=== PATIENT | female | born 1940 | race Caucasian/White ===

== ENCOUNTER 2018-08-08 22:04 | Inpatient (IN) | payer BC, OTHER ==
[~2018-08-08] VITALS: Ht 152.4 cm; Wt 75.7 kg
[2018-08-08] MEDS ORDERED: ALBUTEROL 0.083% (NEB) 2.5 MG/3 ML AMP HHN STA (23:08)
[2018-08-08] MEDS ORDERED: SOD CHLORIDE 0.9% 500 ML IV STA (23:08)
[2018-08-08] MEDS ORDERED: IPRATROPIUM (NEB) 0.5 MG/2.5 ML AMP INH ONE (23:30)
[2018-08-08] MEDS ORDERED: METHYLPREDNISOLONE 125 MG INJ IV ONE (23:30)
[2018-08-08] MEDS ORDERED: CEFEPIME 2GM/50 ML (PMX) 50 ML IVPB STA (23:45)
[2018-08-08] MEDS ORDERED: SODIUM CHLORIDE 0.9% 1L BAG IV* STA (23:45)
[2018-08-09] VITALS (84 sets, daily range): BP systolic 62–133; BP diastolic 15–71; PULSE 52–88; RESP 13–31; Ht 152.4 cm; Wt 75.7 kg
[2018-08-09] MEDS ORDERED: VANCOMYCIN 1 GM (PMX) 250 ML IVPB ONE
[2018-08-09] MEDS ORDERED: LORAZEPAM 2 MG INJ IV ONE (02:00)
[2018-08-09] MEDS ORDERED: NITROGLYCERIN 2% 1 GM OINT PKT TD ONE (02:00)
--- NOTE | 2018-08-09 02:42 | ERD ---
ER Documentation Chief Complaint Chief Complaint BIB RA 89 FLU LIKE SYMPTOMS, ACCUCK 385 HPI This 77-year-old female brought in by rescue with complaints of cough cold body aches for the past 2-3 days and generalized weakness. Per family she has been weak and lethargic and complaining of fevers and chills. No nausea no vomiting. Patient was seen by facilities maintenance supervisor 4 days ago and cleared with ultrasound per family. Denies any chest pain. Denies any other current issues. ROS All systems reviewed and are negative except as per history of present illness. Allergies Allergies: Coded Allergies: No Known Allergy (Unverified , 08/08/18) PMhx/Soc History of Surgery: Yes (eye surgery) Hx Cardiac Disorders: Yes (hypertension) Hx Miscellaneous Medical Probl: Yes (DM) Hx Alcohol Use: No Hx Substance Use: No Hx Tobacco Use: No Smoking Status: Never smoker Physical Exam Vitals Vital Signs Date Temp Pulse Resp B/P (MAP) Pulse Ox O2 O2 Flow FiO2 Time Delivery Rate 08/09/18 85 157/69 100 Mechanical 13.0 02:34 (98) Ventilator 08/09/18 95 99/82 (88) 100 BIPAP 01:00 08/09/18 101 93 100 00:43 08/08/18 Nasal 4 23:28 Cannula 08/08/18 99 22 89 Nasal 4.0 23:22 Cannula 08/08/18 97.7 100 16 126/66 98 22:11 (86) Physical Exam Const: No acute distress Head: Atraumatic Eyes: Normal Conjunctiva ENT: Normal External Ears, Nose and Mouth. Neck: Full range of motion. No meningismus. Resp: Clear to auscultation bilaterally Cardio: Regular rate and rhythm, no murmurs Abd: Soft, non tender, non distended. Normal bowel sounds Skin: No petechiae or rashes Back: No midline or flank tenderness Ext: No cyanosis, or edema Neur: Awake and alert Psych: Normal Mood and Affect Result Diagram: 08/08/18233708/08/182337 Results 24 hrs Laboratory Tests Test 08/08/18 23:38 08/08/18 23:43 08/09/18 00:05 White Blood Count 22.8 10^3/ul Red Blood Count 5.17 10^6/ul Hemoglobin 11.1 g/dl Hematocrit 35.5 % Mean Corpuscular Volume 68.7 fl Mean Corpuscular 21.5 pg Hemoglobin Mean Corpuscular 31.3 g/dl Hemoglobin Concent Red Cell Distribution 14.8 % Width Platelet Count 352 10^3/UL Mean Platelet Volume 12.1 fl Immature Granulocytes % 0.800 % Neutrophils % 91.0 % Lymphocytes % 4.4 % Monocytes % 3.6 % Eosinophils % 0.0 % Basophils % 0.2 % Nucleated Red Blood Cells 0.0 /100WBC % Immature Granulocytes # 0.180 10^3/ul Neutrophils # 20.7 10^3/ul Lymphocytes # 1.0 10^3/ul Monocytes # 0.8 10^3/ul Eosinophils # 0.0 10^3/ul Basophils # 0.1 10^3/ul Nucleated Red Blood Cells 0.0 10^3/ul # Urine Color YELLOW Urine Clarity CLOUDY Urine pH 5.0 Urine Specific Topmost 1.016 Urine Ketones NEGATIVE mg/dL Urine Nitrite NEGATIVE mg/dL Urine Bilirubin NEGATIVE mg/dL Urine Urobilinogen NEGATIVE mg/dL Urine Leukocyte Esterase 3+ Pita/ul Urine Microscopic RBC 2 /HPF Urine Microscopic WBC > 182 /HPF Urine Squamous MODERATE /HPF Epithelial Cells Urine Bacteria FEW /HPF Urine Mucus FEW /HPF Urine Hemoglobin NEGATIVE mg/dL Urine Glucose 3+ mg/dL Urine Total Protein 1+ mg/dl Sodium Level 136 mmol/L Potassium Level 4.7 mmol/L Chloride Level 98 mmol/L Carbon Dioxide Level 23 mmol/L Anion Gap 15 Blood Urea Nitrogen 41 mg/dl Creatinine 1.23 mg/dl Est Glomerular Filtrat mL/min Rate mL/min Glucose Level 384 mg/dl Calcium Level 9.6 mg/dl Total Bilirubin 0.3 mg/dl Direct Bilirubin 0.00 mg/dl Indirect Bilirubin 0.3 mg/dl Aspartate Amino 51 IU/L Transf (AST/SGOT) Alanine 26 IU/L Aminotransferase (ALT/SGP T) Alkaline Phosphatase 76 IU/L Troponin I 3.970 ng/ml B-Type Natriuretic 957 PG/ML Peptide Total Protein 7.6 g/dl Albumin 4.5 g/dl Globulin 3.10 g/dl Albumin/Globulin Ratio 1.45 POC Venous Lactate 3.9 mmol/L Blood Gas Specimen Source Blood arterial Arterial Blood Date 08/09/2018 12:10:35 AM Drawn Arterial Blood pH 7.430 (Temp corrected) Arterial Blood pCO2 28.6 mmhg (Temp correct) Arterial Blood pO2 51.4 mmHG (Temp corrected) Arterial Blood HCO3 18.6 mmol/L Arterial Blood Base -4.6 mmol/L Excess Arterial Blood 84.9 mmHG Oxygen Saturation Francois Test N/A Arterial Blood Gas LB Puncture Site Arterial 0.3 % Blood Carboxyhemoglobin Arterial Blood 0.2 % Methemoglobin Blood Gas A-a O2 150.5 mmHg Differential Oxyhemoglobin Percent 84.5 % Blood Gas Temperature 37.0 C Blood Gas Modality NASAL CANNULA FiO2 33.0 % Blood Gas Critical Value Naila DEJESUS MD Read Back Blood Gas Notified Whom KM Blood Gas Notified Time 08/09/2018 12:22:18 AM Current Medications Medications Dose Sig/Viki Start Time Status Last (Trade) Ordered Route PRN Stop Time Admin Dose Reason Admin Sodium 500 ml @ Q1H STAT 08/08/18 DC 08/08/18 Chloride 500 mls/hr IV 23:08 23:55 08/09/18 00:07 125 mg ONCE ONCE 08/08/18 DC 08/08/18 Methylprednis IV 23:30 23:55 olone Sodium 08/08/18 23:31 Succinate (Solu-Medrol) Albuterol 5 mg ONCE STAT 08/08/18 DC 08/08/18 (Proventil HHN 23:08 23:22 0.083% (Neb)) 08/08/18 23:11 Ipratropium 0.5 mg ONCE ONCE 08/08/18 DC 08/08/18 [place] INH 23:30 23:22 (Atrovent 08/08/18 23:31 0.02% (Neb)) Sodium 1,570 ml BOLUS OVER 2 08/08/18 DC 08/08/18 Chloride HOURS STAT 23:45 23:55 (NS) IV* 08/08/18 23:46 Cefepime HCl 50 ml @ ONCE STAT 08/08/18 DC 08/08/18 100 mls/hr IVPB 23:45 23:55 08/09/18 00:14 Vancomycin 250 ml @ ONCE ONCE 08/09/18 DC 08/09/18 HCl 125 mls/hr IVPB 00:00 00:29 08/09/18 02:00 Lorazepam 1 mg ONCE ONCE 08/09/18 DC 08/09/18 (Ativan) IV 02:00 01:54 08/09/18 02:01 2 inch ONCE ONCE 08/09/18 DC 08/09/18 Nitroglycerin TD 02:00 01:50 08/09/18 02:01 (Nitroglyceri n 2% Oint) Procedures/MDM Patient's infectious symptoms have not stabilized and the patient is at risk of rapid decompensation. The patient will be admitted for careful hydration, antib iotic therapy, and infectious source control. Severe Sepsis Assessment: Infectious Source: Pneumonia End organ damage indicated by: [Lactate > 2.0 mmol/L Severe Sepsis Managment: Blood Cultures X 2 before broad spectrum antibiotics initiated within 3 hours of recognition. 30 ml/kg NS bolus Completed Initial Lactate: 3.7 Repeat Lactate pending Critical Care: Time: 45 minutes, independent of any separately billable procedural time Treatments/Evaluations: Emergent fluid management, while maintaining close respiratory support. Immediate broad spectrum antibiotic therapy. Simultaneous assessment for possible sources in order to direct therapy. Consideration for invasive and chemical support to prevent respiratory or cardiac collapse. Septic Shock Assessment (1 hour post 30 ml/kg fluid bolus): Hypotension (SBP < 90 or 40 mmHg drop, MAP < 65): [No] Lactic acid > 4.0 [No] Perfusion Reassessment for Septic Shock: Temp 97.8, pulse 89, respiratory rate 22, blood pressure 137/88 Heart Exam: [Tachycardic] Lung Exam: [No Crackles] Capillary Refill: [Delayed] Peripheral Pulses: [Radially present] Skin: [Mottled, pale] Accepting Care Team: Current data and ongoing care discussed. Time: 1 AM Primary Provider: Dr. Aguirre Consulting: Deferred to inpatient team Outstanding Data: none Departure Diagnosis: Primary Impression: Sepsis Sepsis type: sepsis due to unspecified organism Qualified Codes: A41.9 - Sepsis, unspecified organism Condition: Serious LV DEJESUS Aug 09, 2018 02:42
--- NOTE | 2018-08-09 02:44 | EN ---
Date/Time of Note Date/Time of Note DATE: 08/09/18 TIME: 02:42 ER Progress Note During patient's boarding here in the ER, patient became acutely hypoxic was placed on BiPAP. After period of trauma BiPAP, patient became lethargic obtunded and bradycardic. At this point patient underwent respiratory arrest decision to intubate was obviously made. There was questionable loss of pulse at some point so compressions were started. Epinephrine was given. Patient had return of pulse immediately after intubation which was strong and with a normal blood pressure. Dr. Aguirre made aware. Patient upgraded to intensive care unit Endotracheal Intubation by me: Pre assessment performed. See preceding note for details. Pre-oxygenation performed with 100% oxygen RSI: Performed w/o complication or hypoxic events. Medications as ordered. Blade: [Mac 4] ET Tube: 7.5 cm Depth: 22 cm at the lip Intubation confirmed by colorimetric CO2, equal breath sounds, quiet over the stomach. Chest X-ray 1V Interpreted by me: 2 cm above the cher ET tube. Normal soft tissue, No pneumothorax. LV DEJESUS Aug 09, 2018 02:44
[2018-08-09] MEDS ORDERED: SOD CHLORIDE 0.9% 1,000 ML IV ONE (04:00)
[2018-08-09] MEDS ORDERED: ONDANSETRON 4 MG INJ IV PRN (04:00)
[2018-08-09] MEDS ORDERED: VANCOMYCIN IV PER PHARMACY XX SCH (05:00)
--- NOTE | 2018-08-09 05:40 | NUR ---
VANCO PER PHARMACY: Diagnosis SEPSIS Vanco . = 1 gm X 1 IN ER THEN VANCO 750 MG Q24HRS Pharmacy to follow
[2018-08-09] MEDS ORDERED: NA BICARBONATE 8.4% 50 ML SYG IV STA ×3 (05:43→12:41)
[2018-08-09] MEDS ORDERED: PROPOFOL 100 ML ONE (05:55)
[2018-08-09] MEDS ORDERED: PANTOPRAZOLE 40 MG INJ IV SCH (06:00)
[2018-08-09] MEDS ORDERED: PROPOFOL 100 ML IV SCH (06:00)
[2018-08-09] MEDS ORDERED: MEPERIDINE 25 MG INJ IV PRN ×2 (06:30)
[2018-08-09] MEDS ORDERED: ACETAMINOPHEN 650 MG SUPP PR PRN (06:30)
[2018-08-09] MEDS ORDERED: DEXTROSE 50% 50 ML SYRINGE IV PRN ×2 (06:30)
--- NOTE | 2018-08-09 06:30 | QN ---
Documentation Comment I was called out of the ER to room 118 for Central line placement. The patient is requiring Levophed for hypotension. I believe the best option at this time is an easy IO for quick access but can be used for pressor administration for the next 24 hours if needed. However in that time I believe another option such as central line placement or PICC line should be obtained by the primary team. Intraosseous Line Placement by me: Patient consented, area prepped, time out performed. Anesthesia: None used Location: Anteromedial, Proximal Tibia (1-3 cm below Tibial tuberosity) Device: Easy IO blue needle Technique: EZ-IO Drill Results: Bone Marrow Aspirated, No extravasation Complications: No evidence of extravasation, compartment syndrome, growth plate damage, or fat embolism ANTHONY CULVER MD Aug 09, 2018 06:30
[2018-08-09] MEDS ORDERED: EPINEPHrine 0.1 MG/ML SYG ONE (07:00)
[2018-08-09] MEDS ORDERED: SUCCINYLCHOLINE CHLORIDE 100 MG/5 ML SYG IV ONE (07:00)
[2018-08-09] MEDS ORDERED: PHENYLephrine 40 MG in DEXTROSE 5% 246 ML IV SCH ×2 (07:00→07:30)
[2018-08-09] MEDS ORDERED: ETOMIDATE 20 MG INJ ONE (07:00)
[2018-08-09] MEDS ORDERED: VASOPRESSIN 60 UNIT in DEXTROSE 5% 57 ML IV SCH (07:00)
[2018-08-09] MEDS ORDERED: LIDOCAINE 1% (MPF) 5 ML VIAL SC ONE (07:30)
[2018-08-09] MEDS ORDERED: SODIUM BICARBONATE (IV ADD) 100 MEQ in SOD CHLORIDE 0.45% 1,000 ML IV SCH (08:00)
[2018-08-09] MEDS: INSULIN HUMAN REGULAR 100 UNIT in SOD CHLORIDE 0.9% 99 ML IV SCH ×4 (08:40→21:49)
[2018-08-09] MEDS: ACCU-CHEK XX SCH ×15 (08:41→23:30)
[2018-08-09] MEDS ORDERED: CEFEPIME 2GM/50 ML (PMX) 50 ML IVPB SCH (09:00)
--- NOTE | 2018-08-09 09:20 | HP ---
DATE OF ADMISSION: 08/09/2018 CHIEF COMPLAINT: Chest pain associated with nausea, vomiting, diarrhea and headache. HISTORY OF PRESENT ILLNESS: A 77-year-old female with hypertension, type 2 diabetes mellitus, hyperl ipidemia, was brought in by paramedics after she reported multiple complaints. The patient had flu-l delfin symptoms. She stated that she developed nausea, vomiting and diarrhea at home. This was associa edda with chest pain and palpitations. She is complaining of bilateral hand pain. Her condition dete riorated in the emergency room and she required mechanical ventilation. White blood cell count was i nitially elevated to 22,000. There was evidence of a severe metabolic acidosis. The blood sugar was elevated to 591. Troponin has been markedly elevated. Initial troponin was 3.97 with repeat tropon in of 29.3 and 43.5. The patient was placed on pressors and hypothermia protocol was initiated after there was evidence of a cardiac arrest. The patient was resuscitated. According to multiple family members, there is no history of cardiac disease. PAST MEDICAL HISTORY: 1. Hypertension. 2. Type 2 diabetes mellitus. 3. Hyperlipidemia. 4. Peripheral neuropathy. 5. History of chronic kidney disease. SOCIAL HISTORY: The patient lives at home. She was exposed to secondhand smoke until her ex pired in 1999. PHYSICAL EXAMINATION: GENERAL: Well-developed, well-nourished elderly female, who is intubated and paralyzed. VITAL SIGNS: Systolic blood pressure is 93. Pulse is 65. She is afebrile. HEENT: Pupils are slowly reactive to light. CHEST: Lungs clear to auscultation bilaterally. HEART: Regular rate and rhythm. No murmurs or gallops. ABDOMEN: Soft, obese. Normoactive bowel sounds. EXTREMITIES: No clubbing, cyanosis, or edema. LABORATORY DATA: Sodium 142, potassium 5, chloride 106, bicarb 8, BUN 37, creatinine 1.4. Last bloo d sugar was 471. Last WBC 26.2, hemoglobin 9.4, platelet count is 141360, 91% neutrophils. ASSESSMENT AND PLAN: A 77-year-old female with septic shock. Source of infection is unclear at this time, but would need to rule out urosepsis. 1. Acute non-ST elevation myocardial infarction. 2. Acute respiratory failure. 3. Septic versus cardiogenic shock. 4. Severe metabolic acidosis. 5. Poorly controlled type 2 diabetes mellitus. 6. History of chronic kidney disease. 7. Hyperlipidemia. 8. Prognosis is guarded. PLAN: 1. Admit to ICU. Continue ventilatory support. 2. Continue pressor support. 3. Broad spectrum antibiotics. 4. Start 2D echo. 5. Start insulin drip. 6. Blood and urine culture. 7. Pulmonary and cardiology consultation was requested. 8. I will request infectious disease consultation as well. 9. Her condition was discussed with multiple family members at the bedside. I directly spoke to her son and the daughter. Dictated By: JAYE ZHAO MD SK/NTS Conf#: [id number] DID#: [id number] CC: AURELIA FRAUSTO MD; DELICIA OQUENDO MD; ROBYN CAMPOS MD;*End*
[2018-08-09] MEDS: VECURONIUM 100 MG in DEXTROSE 5% 100 ML IV SCH (09:24)
--- NOTE | 2018-08-09 09:29 | NUR ---
PICC LINE NURSING NOTE: Oder for PICC line placed at 0708. I called the ICU at 0740 to inquire about consent. Told by LAZARA Gama consent not signed, will call me back when signed. 0825 I called the ICU to inquire about consent status, told by Valerio HAILE consent is ready. Arrived in ICU approx 0855 for PICC placement. Pt status code blue from 0500 in ED. Right UE veins evaluated per ultrasound & found to be thrombosed per Rachell Mcdonald RN. Left UE evaluated per ultrasound, deep veins too small to accommodate 5 maori PICC at this time. Hospitalist is trying to reach Dr Cruz. I called the ED to speak with Dr Vuong to request central line. He refused & stated " It's 0900 and you should try to reach another doctor". Approx 7-[address] Cruz located in ICU & requested to place central line. Venous access discussed/explained. Dr Cruz agreed to place right internal jugular catheter.
--- NOTE | 2018-08-09 09:55 | QN ---
Documentation Comment Central Line Placement by me: Patient consented, sterilely draped, full prep, gown, glove, mask, time out performed. Anesthesia: None used Location: Right femoral Device: Multiple lumen Technique: Seldinger technique. Secured with suture. Results: Venous return from all ports with easy saline flush. No complic ations. Guide wire retrieved and disposed of. ED ultrasound was used but unfortunately there was no printing available to do cument images. ANTHONY CULVER MD Aug 09, 2018 09:55
[2018-08-09] MEDS ORDERED: PHENYLephrine 20MG IN 250 ML 250 ML ONE (10:23)
[2018-08-09] MEDS ORDERED: PHENYLephrine 20MG IN 250 ML 250 ML IV SCH (10:30)
[2018-08-09] MEDS: VASOPRESSIN 60 UNIT in DEXTROSE 5% 57 ML IV SCH ×2 (11:00→16:05)
--- NOTE | 2018-08-09 11:32 | CONS ---
DATE OF ADMISSION: 08/09/2018 DATE OF CONSULTATION: 08/09/2018 TYPE OF CONSULTATION: Infectious disease. REASON FOR CONSULTATION: Antibiotic management. HISTORY OF PRESENT ILLNESS: Martha Johnson is a 77-year-old female who was brought in by rescue with complaints of cold, cough, body aches for the last 2 or 3 days. She has been weak and lethargic , complaining of fever and chills. No nausea or vomiting. She was seen by her table top tile setter 4 days a go. Her past problems include: 1. Adult-onset diabetes mellitus. 2. Hypertension. 3. Eye surgery. On admission, her white count was 22,800, H and H 11.1 and 35.5, platelet count of 352,000. BUN and creatinine 41/1.23, random glucose 384. HOSPITAL COURSE: The patient became hypoxic. The patient was placed on BiPAP. She became obtunded and bradycardic. She underwent respiratory arrest and she was intubated. There was questionable los s of pulse, so compressions were started and epinephrine was given. Her pulse returned. The patient sent to the intensive care unit. The patient required Levophed for hypotension. Patient had an int raosseous line placement by Dr. Vuong. The patient had evidence of severe metabolic acidosis. Bloo d sugar was 591. Troponin was markedly elevated, initially 3.97. Repeat 29.3 and 43.5. She was lin lexie on pressors and hypothermia protocol after evidence of a cardiac arrest. PAST MEDICAL HISTORY: As outlined. She also has peripheral neuropathy, chronic renal disease. FAMILY HISTORY: Noncontributory. SOCIAL HISTORY: She does not smoke, drink or abuse drugs. ALLERGIES: NONE TO PENICILLIN, SULFA OR FOODS. MEDICATIONS: Per chart. REVIEW OF SYSTEMS: As per HPI. PHYSICAL EXAMINATION: GENERAL: She is a well-developed, well-nourished elderly female who is intubated on a respirator. VITAL SIGNS: Stable. She is afebrile. SKIN: Without generalized rash. HEENT: She is intubated. NECK: Supple. LYMPH NODES: None palpable. CHEST: Decreased breath sounds at the bases. HEART: Without murmur or gallop. ABDOMEN: Soft, obese, nontender, without organosplenomegaly or masses. EXTREMITIES: Without cyanosis, clubbing, or edema. RECTAL AND GENITAL: Deferred. NEUROLOGIC: No focal neurological abnormalities. HOSPITAL COURSE: Her white count last was 26.2, hemoglobin 9.4, platelet count 349,000 with 91% poly s or neutrophils. BUN and creatinine 37/1.4. The patient was started on vancomycin and cefepime. S he is on phenylephrine and vasopressin. Blood cultures were ordered x3. Urine cultures, MRSA screen . Chest x-ray shows perihilar hazy airspace disease most compatible with edema. We will continue he r on current therapy. IMPRESSION AND PLAN: Training for cardiac and septic shock. Await culture reports. I will dictate my findings to Dr. Terry Campos and Dr. Santiago. Dictated By: GRABIEL HOLT MD, JD/NTS Conf#: [id number] DID#: [id number] CC: TERRY CAMPOS MD;*EndCC*
[2018-08-09] MEDS ORDERED: PHENYLephrine 40 MG in DEXTROSE 5% 496 ML IV SCH (12:00)
[2018-08-09] MEDS: NORepinephrine 8MG/250 ML (PMX 250 ML IV SCH ×3 (12:09→20:44)
[2018-08-09] MEDS: PIPER-TAZO 2.25 GM/NS 50 ML IVPB SCH ×3 (12:57→23:46)
[2018-08-09] MEDS ORDERED: SODIUM BICARBONATE (IV ADD) 150 MEQ in SOD CHLORIDE 0.45% 1,000 ML IV SCH (13:00)
--- NOTE | 2018-08-09 13:00 | CONS ---
Assessment/Plan Assessment/Plan Assessment/Plan 1. Acute non-ST elevation myocardial infarction.-- lateral ST depressions, inferior Q waves 2. Acute respiratory failure. 3. Septic versus cardiogenic shock. 4. Severe metabolic acidosis. 5. Poorly controlled type 2 diabetes mellitus. 6. History of chronic kidney disease. 7. Hyperlipidemia. 8. Acute CHF 9. Prognosis is guarded. -continue abx -continue pressor support -will review echocardiogram -lasix once bp better -rx asa, statin - no acei or coreg until bp stable -once stable possible defintive treatment for CAD may be warranted - Consultation Date/Type/Reason Admit Date/Time Aug 09, 2018 at 01:10 Type of Consult Cardiology Date/Time of Note DATE: 08/09/18 TIME: 12:56 Hx of Present Illness A 77-year-old female with hypertension, type 2 diabetes mellitus, hyperlipidemia, was brought in by paramedics after she reported multiple complaints. The patient had flu-like symptoms. She stated that she developed nausea, vomiting and diarrhea at home. This was associated with chest pain and palpitations. She is complaining of bilateral hand pain. Her condition deteriorated in the emergency room and she required mechanical ventilation. White blood cell count was initially elevated to 22,000. There was evidence of a severe metabolic acidosis. The blood sugar was elevated to 591. Troponin has been markedly elevated. Initial troponin was 3.97 with repeat troponin of 29.3 and 43.5. The patient was placed on pressors and hypothermia protocol was initiated after there was evidence of a cardiac arrest. The patient was resuscitated. According to multiple family members, there is no history of cardiac disease.The patient wth no cardiac hsitory but currently homedynamically unstable on pressor support Past Medical History Medications Current Medications Vancomycin HCl (Vanco Iv Per Pharmacy) VANCOMYCIN PER PHARMACY PER PROTOCOL XX ; Start 08/09/18 at 05:00 Ondansetron HCl (Zofran Inj) 4 mg Q4 PRN IV nausea; Start 08/09/18 at 04:00 Pantoprazole (Protonix Iv) 40 mg DAILY@0600 IV Last administered on 08/09/18at 06:06; Admin Dose 40 MG; Start 08/09/18 at 06:00 Vancomycin/Sodium Chloride 250 ml @ 125 mls/hr Q24H IVPB ; Start 08/09/18 at 16:00 Norepinephrine 250 ml @ 1.875 mls/ hr TITRATE IV Last administered on 08/09/18at 12:09; Admin Dose 56.25 MLS/HR; Start 08/09/18 at 06:00 Propofol 100 ml @ 2.1 mls/hr PER PROTOCOL IV ; Start 08/09/18 at 06:30 Vecuronium [place] 100 mg/ Dextrose 100 ml @ 4.2 mls/hr [id number] IV Last administered on 08/09/18at 09:24; Admin Dose 4.2 MLS/HR; Start 08/09/18 at 06:07 Acetaminophen (Tylenol Supp) 650 mg Q4H PRN IA TEMP > 37C; Start 08/09/18 at 06:30 Acetaminophen (Tylenol Liquid) 650 mg Q4H PRN PO TEMP > 37C; Start 08/09/18 at 06:30 Acetaminophen (Tylenol Liquid) 500 mg Q6H PO ; Start 08/10/18 at 06:30; Stop 08/11/18 at 06:29 Meperidine HCl (Demerol) 12.5 mg Q4H PRN IV AGITATION; Start 08/09/18 at 06:30 Meperidine HCl (Demerol) 25 mg Q4H PRN IV MUSCLE SPASMS; Start 08/09/18 at 06:30 Eye Lubricant (Akwa Oint) 1 applic Q6 BOTH EYES ; Start 08/09/18 at 12:00 Eye Lubricant (Artificial Tears Oph) 2 drop Q6 BOTH EYES ; Start 08/09/18 at 12:00 Diagnostic Test (Pha) (Accu-Chek) 1 ea Q1H XX Last administered on 08/09/18at 12:21; Admin Dose 1 EA; Start 08/09/18 at 06:30 Insulin Human Regular 100 unit/ Sodium Chloride 100 ml @ 0 mls/hr PER PROTOCOL IV Last administered on 08/09/18at 08:40; Admin Dose 12 MLS/HR; Start 08/09/18 at 06:30 Miscellaneous Information (* Miscellaneous Pharmacy Order) Treatment of Hypoglycemia: 1.BG 51... Per protocol XX ; Start 08/09/18 at 06:30 Dextrose (D50w Syringe) 25 ml Q15M PRN IV DECREASED GLUCOSE; Start 08/09/18 at 06:30 Dextrose (D50w Syringe) 50 ml Q15M PRN IV DECREASED GLUCOSE; Start 08/09/18 at 06:30 Vasopressin 60 unit/Dextrose 60 ml @ 0 mls/hr Q12H IV ; Start 08/09/18 at 11:00 Phenylephrine HCl 40 mg/Dextrose 500 ml @ 75 mls/hr TITRATE IV Last administered on 08/09/18at 12:09; Admin Dose 150 MLS/HR; Start 08/09/18 at 12:00 Piperacillin Sod/ Tazobactam Sod 50 ml @ 100 mls/hr Q6 IVPB ; Start 08/09/18 at 11:00 Sodium Bicarbonate 150 meq/Sodium Chloride 1,150 ml @ 125 mls/hr Q9H12M IV ; Start 08/09/18 at 13:00 Allergies: Coded Allergies: No Known Allergy (Unverified , 08/08/18) Social History Smoking Status: Never smoker Exam/Review of Systems Vital Signs Vitals Vital Signs Date Temp Pulse Resp B/P (MAP) Pulse Ox O2 O2 Flow FiO2 Time Delivery Rate 08/09/18 53 24 96 100 10:12 08/09/18 62/31 (41) Mechanical 06:45 Ventilator 08/09/18 97.1 05:00 08/09/18 13.0 02:34 Intake and Output 08/08/18 08/08/18 08/09/18 1515:00 23:00 07:00 IntakeIntake Total 2370 ml BalanceBalance 2370 ml Labs Result Diagram: 08/09/18 0423 08/09/18 0423 Results 24hrs Laboratory Tests Test 08/08/18 23:38 08/08/18 23:43 08/09/18 00:05 08/09/18 02:46 White Blood 22.8 H Count Red Blood Count 5.17 Hemoglobin 11.1 L Hematocrit 35.5 L Mean 68.7 L Corpuscular Volume Mean 21.5 L Corpuscular Hemoglobin Mean 31.3 L Corpuscular Hemoglobin Conc ent Red Cell 14.8 H Distribution Width Platelet Count 352 Mean Platelet 12.1 H Volume Immature 0.800 H Granulocytes % Neutrophils % 91.0 H Lymphocytes % 4.4 L Monocytes % 3.6 Eosinophils % 0.0 Basophils % 0.2 Nucleated Red 0.0 Blood Cells % Immature 0.180 H Granulocytes # Neutrophils # 20.7 H Lymphocytes # 1.0 Monocytes # 0.8 Eosinophils # 0.0 Basophils # 0.1 Nucleated Red 0.0 Blood Cells # Urine Color YELLOW Urine Clarity CLOUDY A Urine pH 5.0 Urine Specific 1.016 [place] Urine Ketones NEGATIVE Urine Nitrite NEGATIVE Urine Bilirubin NEGATIVE Urine NEGATIVE Urobilinogen Urine Leukocyte 3+ H Esterase Urine 2 Microscopic RBC Urine > 182 H Microscopic WBC Urine Squamous MODERATE Epithelial Cell s Urine Bacteria FEW A Urine Mucus FEW A Urine NEGATIVE Hemoglobin Urine Glucose 3+ H Urine Total 1+ H Protein Sodium Level 136 Potassium Level 4.7 Chloride Level 98 Carbon Dioxide 23 Level Anion Gap 15 H Blood Urea 41 H Nitrogen Creatinine 1.23 H Est Glomerular Filtrat Rate mL/min Glucose Level 384 H Calcium Level 9.6 Total Bilirubin 0.3 Direct 0.00 Bilirubin Indirect 0.3 Bilirubin Aspartate Amino 51 H Transf (AST/SGO T) Alanine 26 Aminotransferas e (ALT/SGPT) Alkaline 76 Phosphatase Troponin I 3.970 *H B-Type 957 H Natriuretic Peptide Total Protein 7.6 Albumin 4.5 Globulin 3.10 Albumin/Globuli 1.45 n Ratio POC Venous 3.9 *H 7.4 *H Lactate Blood Gas Blood Specimen arterial Source Arterial Blood 08/09/2018 12:1 Date Drawn 0:35 AM Arterial Blood 7.430 pH (Temp corrected ) Arterial Blood 28.6 L pCO2 (Temp correct) Arterial Blood 51.4 *L pO2 (Temp corrected ) Arterial Blood 18.6 L HCO3 Arterial Blood -4.6 L Base Excess Arterial Blood 84.9 L Oxygen Saturati on Francois Test N/A Arterial Blood LB Gas Puncture Site Arterial 0.3 Blood Carboxyhe moglobin Arterial Blood 0.2 Methemoglobin Blood Gas A-a 150.5 H O2 Differential Oxyhemoglobin 84.5 L Percent Blood Gas 37.0 Temperature Blood Gas NASAL CANNULA Modality FiO2 33.0 Blood Gas Naila DEJESUS Critical Value Read Back Blood Gas Notified Whom Blood Gas 08/09/2018 12:2 Notified Time 2:18 AM Test 08/09/18 03:30 08/09/18 03:53 08/09/18 04:23 08/09/18 04:40 Blood Gas Blood arterial Specimen Source Arterial Blood 08/09/2018 3:40: Date Drawn 05 AM Arterial Blood 7.027 *L pH (Temp corrected ) Arterial Blood 33.0 L pCO2 (Temp correct) Arterial Blood 87.4 pO2 (Temp corrected ) Arterial Blood 8.5 *L HCO3 Arterial Blood -21.2 L Base Excess Arterial Blood 91.0 L Oxygen Saturati on Francois Test N/A Arterial Blood LB Gas Puncture Site Arterial 0.3 Blood Carboxyhe moglobin Arterial Blood 0.3 Methemoglobin Blood Gas A-a 592.6 H O2 Differential Oxyhemoglobin 90.5 L Percent Blood Gas 37.0 Temperature Blood Gas 16.0 Respiration Rate Blood Gas 29 Actual Respiration Rat e Blood Gas VENT - AC Modality FiO2 100.0 Blood Gas Tidal 450.0 Volume Blood Gas Low 5.0 PEEP Setting Blood Gas 26.0 Inspiratory Pressure Blood Gas Naila DEJESUS MD Critical Value Read Back Blood Gas Notified Whom Blood Gas 08/09/2018 3:54: Notified Time 03 AM Bedside Glucose 529 *H 503 *H White Blood 26.2 H Count Red Blood Count 4.41 Hemoglobin 9.4 L Hematocrit 32.7 L Mean 74.1 L Corpuscular Volume Mean 21.3 L Corpuscular Hemoglobin Mean 28.7 L Corpuscular Hemoglobin Conc ent Red Cell 15.1 H Distribution Width Platelet Count 349 Mean Platelet 12.3 H Volume Immature 2.700 H Granulocytes % Neutrophils % Segmented 84 H Neutrophils % (Manual) Band 9 H Neutrophils % (Manual) Lymphocytes % Lymphocytes % 5 L (Manual) Monocytes % Monocytes % 1 (Manual) Eosinophils % Basophils % Basophils % 1 (Manual) Nucleated Red 1 H Blood Cells % Immature 0.710 H Granulocytes # Neutrophils # Neutrophils # 22.6 H (Manual) Band 2.3 H Neutrophils # Lymphocytes 1.3 (Manual) Lymphocytes # Monocytes # Monocytes # 0.2 L (Manual) Eosinophils # Basophils # Basophils # 0.2 H (Manual) Nucleated Red Blood Cells # Platelet NORMAL Estimate Giant Platelets 3 H Poikilocytosis 3+ Anisocytosis 2+ Microcytosis 2+ Sodium Level 142 Potassium Level 5.0 Chloride Level 106 Carbon Dioxide 8 #*L Level Anion Gap 28 #H Blood Urea 37 H Nitrogen Creatinine 1.40 H Est Glomerular Filtrat Rate mL/min Glucose Level 591 #*H Lactic Acid 16.1 *H Level Calcium Level 8.2 L Total Bilirubin 0.1 L Direct 0.00 Bilirubin Indirect 0.1 Bilirubin Aspartate Amino 145 H Transf (AST/SGO T) Alanine 58 Aminotransferas e (ALT/SGPT) Alkaline 42 Phosphatase Troponin I 29.300 *H Total Protein 4.8 #L Albumin 2.6 #L Globulin 2.20 Albumin/Globuli 1.18 n Ratio Triglycerides 162 H Level Cholesterol 152 Level LDL 82 Cholesterol, Calculated HDL Cholesterol 38 Cholesterol/HDL 4.0 Ratio Test 08/09/18 06:42 08/09/18 07:00 08/09/18 07:04 08/09/18 07:07 Bedside Glucose 471 *H Blood Gas Blood arterial Specimen Source Arterial Blood 08/09/2018 7:24: Date Drawn 00 AM Arterial Blood 6.985 *L pH (Temp corrected ) Arterial Blood 36.3 pCO2 (Temp correct) Arterial Blood 59.5 L pO2 (Temp corrected ) Arterial Blood 8.7 *L HCO3 Arterial Blood -22.3 L Base Excess Arterial Blood 82.3 L Oxygen Saturati on Francois Test ACCEPTAB Arterial Blood Right Radial Gas Puncture Site Arterial 0.3 Blood Carboxyhe moglobin Arterial Blood 0.4 Methemoglobin Blood Gas A-a 622.2 H O2 Differential Oxyhemoglobin 81.7 L Percent Blood Gas 35.0 Temperature Blood Gas 16.0 Respiration Rate Blood Gas 23 Actual Respiration Rat e Blood Gas VENT - AC Modality FiO2 100.0 Blood Gas Tidal 450.0 Volume Blood Gas Low 10.0 PEEP Setting Blood Gas LAQUITA RN Critical Value Read Back Blood Gas TM Notified Whom Blood Gas 08/09/2018 7:43: Notified Time 00 AM Lipase 77 Lactate 1202 H Dehydrogenase Creatine Kinase 662 H Creatine Kinase 5.6 Index Creatinine 37.00 H Kinase MB (Mass) Troponin I 43.500 *H Test 08/09/18 07:32 08/09/18 08:31 08/09/18 09:43 08/09/18 10:53 D-Dimer > 40701.00 H Bedside Glucose 519 *H 514 *H 346 H Test 08/09/18 12:07 08/09/18 12:16 08/09/18 12:20 Blood Gas Blood arterial Specimen Source Arterial Blood 08/09/2018 11:50 Date Drawn :24 AM Arterial Blood 7.161 *L pH (Temp corrected ) Arterial Blood 21.9 L pCO2 (Temp correct) Arterial Blood 134.5 H pO2 (Temp corrected ) Arterial Blood 8.2 *L HCO3 Arterial Blood -20.0 L Base Excess Arterial Blood 98.4 Oxygen Saturati on Francois Test ACCEPTAB Arterial Blood Left Radial Gas Puncture Site Arterial 0.3 Blood Carboxyhe moglobin Arterial Blood 0.2 Methemoglobin Blood Gas A-a 567.6 H O2 Differential Oxyhemoglobin 97.9 Percent Blood Gas 32.2 Temperature Blood Gas 24.0 Respiration Rate Blood Gas 24 Actual Respiration Rat e Blood Gas VENT - AC Modality FiO2 100.0 Blood Gas Tidal 500.0 Volume Blood Gas Low 12.0 PEEP Setting Blood Gas REBECA HAILE Critical Value Read Back Blood Gas TM Notified Whom Blood Gas 08/09/2018 12:01 Notified Time :53 PM Prothrombin 17.6 H Time Prothrombin 1.4 Time Ratio INR 1.44 International Normalized Rati o Activated 33.2 Partial Thrombo plast Time Bedside Glucose 189 AURELIA FRAUSTO MD Aug 09, 2018 13:00
[2018-08-09] MEDS: OCULAR LUBRICANT 3.5 GM OPH OINT BOTH EYES SCH ×3 (13:25→23:45)
[2018-08-09] MEDS: ARTIFICIAL TEARS 15 ML OPH BOTH EYES SCH ×3 (13:25→23:46)
--- NOTE | 2018-08-09 13:25 | CONS ---
DATE OF ADMISSION: 08/09/2018 DATE OF CONSULTATION: TYPE OF CONSULTATION: Pulmonary. REASON FOR CONSULTATION: Ventilator management, septic shock. HISTORY OF PRESENT ILLNESS: This is an unfortunate 77-year-old lady with a history of hypertension, hyperlipidemia, type 2 diabetes who was brought in from home with flu-like symptoms, shortness of jihan ath, orthopnea, PND, nausea, vomiting, chest pain and palpitations. On arrival, the patient had rapi d deterioration requiring intubation and mechanical ventilation, complicated by cardiopulmonary arres t. She received CPR with return of circulation and now placed on hypothermia protocol. Chest x-ray is demonstrating significant bilateral infiltrates with markedly elevated troponin and WBC. PAST MEDICAL HISTORY: Hypertension, hyperlipidemia, peripheral neuropathy, chronic kidney disease. MEDICATIONS: Per chart. ALLERGIES: NONE. SOCIAL HISTORY: Nonsmoker. No alcohol, no history of drug use. FAMILY HISTORY: Noncontributory. REVIEW OF SYSTEMS: A 12-point review of systems was unable to perform. PHYSICAL EXAMINATION: GENERAL: Moderately obese lady, orally intubated on mechanical ventilation. VITAL SIGNS: Temperature 98, pulse is 65, blood pressure is 84/60, O2 saturation 96%, FiO2 of 80%. NECK: Supple. No JVD or lymphadenopathy. CARDIAC: S1, S2. No added sounds or murmurs. CHEST: Diminished air entry bilaterally with rales. ABDOMEN: Mildly distended. EXTREMITIES: No cyanosis, clubbing. A 1+ edema. NEUROLOGIC: Unable to assess. LABORATORIES: White count 26.2, hemoglobin 9.4, platelets of 349. BUN 37, creatinine 1.4. Lactic a josi 16. Troponin 29. Arterial blood gas: pH 6.9, pCO2 of 36, PaO2 of 59. IMAGING: Chest x-ray is demonstrating 6 bilateral infiltrates. Initial EKG showed no acute ischemic changes per chart. IMPRESSION AND PLAN: 1. Cardiopulmonary arrest, possibly secondary to community-acquired pneumonia and combination with a cute myocardial infarction. 2. Hypoxemic respiratory failure likely secondary to above, possible component of aspiration pneumon ia following cardiopulmonary arrest. 3. History of diabetes mellitus with significant hyperglycemia. 4. 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 5. History of peripheral neuropathy. 6. History of essential hypertension. The patient will require: 1. Continued aggressive volume resuscitation. 2. Vasopressor support. 3. Broad-spectrum antibiotics. We will switch from cefepime to Zosyn for anaerobic coverage. 4. Continue insulin drip. 5. Continue hypothermia protocol with sedation and paralysis. 6. Lee culture pending results. 7. Family discussion at bedside regarding goals of care as prognosis remains poor. Dictated By: DELICIA OQUENDO MD SV/OPAL Conf#: [id number] DID#: [id number] CC: ROBYN CAMPOS MD;*EndCC*
[2018-08-09] MEDS: PANTOPRAZOLE IV 80 MG in SOD CHLORIDE 0.9% 100 ML IV SCH (15:59)
[2018-08-09] MEDS ORDERED: PHENYLEPHRINE 80 MG in DEXTROSE 5% 250 ML IV SCH (16:00)
[2018-08-09] MEDS ORDERED: VANCOMYCIN 750 MG (PMX) 250 ML IVPB SCH (16:00)
[2018-08-09] MEDS ORDERED: INSULIN ASPART [NOVOLOG] 3 ML PEN SC ONE (16:00)
--- NOTE | 2018-08-09 16:32 | RADRPT ---
Echocardiogram Report Patient Name: JIM WESTFALL Gender: Female Date: 1940 Study Date: 09-Aug-2018 Director Sales And Marketing: Peter Mckay [facility] Location: [address] Ref. Physician: ROBYN CAMPOS Quality: Adequate Procedures: Transthoracic echocardiogram with complete 2D, M-Mode, and doppler examination. Indications: S/P Cardiac arrest. 2D/M Mode Doppler Measurement Value Normal Ranges Measurement Value Normal Ranges LVIDd 2D 3.0 3.5 - 5.6 cm GIOVANNI VTI 0.6 cm2 LVIDs 2D 2.4 2.1 - 4.1 cm AV Mean Vijay 1.6 m/sec LVPWd 2D 1.4 0.6 - 1.1 cm AV Mean PG 12.0 mmHg IVSd 2D 1.4 0.6 - 1.1 cm AV VTI 94.1 cm AoR Diam 2D 2.7 2.0 - 3.7 cm LVOT Mean Vijay 0.4 m/sec LA/Ao 2D 1 0 - 1 LVOT Mean PG 1.0 mmHg LA Dimen 2D 3.5 2.3 - 4.0 cm LVOT Peak Vijay 0.6 m/sec LVOT Diam 1.8 cm LVOT Peak PG 1.0 mmHg MV E Peak Vijay 0.9 m/sec MV A Peak Vijay 0.8 m/sec MV E/A 1.1 MV Decel Time 261 msec Lat E` Vijay 0.0 m/sec Lateral E/E` 18.7 Med E` Vijay 0.0 m/sec MV E/A 1.1 TR Peak Vijay 2.9 m/sec TR Peak PG 34.0 mmHg Findings Left Ventricle: Normal left ventricular systolic function. Normal left ventricular cavity size. Moderate concentric left ventricular hypertrophy. Ejection fraction is visually estimated at 55 %. Tissue Doppler/Mitral Doppler indices are consistent with impaired relaxation (Stage I diastolic dysfunction). Right Ventricle: Normal right ventricular size. Normal right ventricular systolic function. Left Atrium: There is mild enlargement of left atrium. Right Atrium: The right atrium is normal in size. Mitral Valve: Mild mitral leaflet calcification. Mild mitral annular calcification. Trace mitral regurgitation. Aortic Valve: Moderate to severe aortic stenosis. Aortic valve Max velocity 2.48 m/sec. Max PG 25.00 mmHg. Mean PG 12.00 mmHg. Aortic valve area 0.64 cm2. Aortic cusps appear moderately calcified. Trace aortic valve regurgitation. Tricuspid Valve: Normal appearance of the tricuspid valve. Estimated peak PA systolic pressure 34 mmHg. There is mild tricuspid regurgitation. Pulmonic Valve: Pulmonic valve not well visualized. There is trace pulmonic regurgitation. Pericardium: Normal pericardium with no significant pericardial effusion. Aorta: Normal aortic root. IVC: The IVC is not well visualized. Conclusions Technically difficult study. Moderate concentric left ventricular hypertrophy with normal systolic function. Grade 1 diastolic dysfunction. Mild left atrial enlargement. Severe calcific aortic stenosis with relatively low gradients. Mild tricuspid regurgitation with mild pulmonary hypertension. Electronically Signed By: Chaya Chen 09-Aug-2018 16:32:17 -0800 Patient Name: JIM WESTFALL Study Date: 09-Aug-2018 [id number]
[2018-08-09] MEDS: POTASSIUM CHLORIDE 50 ML IVPB SCH ×3 (16:55→20:38)
[2018-08-09] MEDS ORDERED: INSULIN GLARGINE [LANTus] (100 UNITS/ML) SYG SC ONE (19:00)
--- NOTE | 2018-08-09 19:00 | NUR ---
END OF SHIFT SUMMARY CARDIAC - MD FRAUSTO ROUNDED ON PT. 2D ECHO WAS PREFORMED ON PT. MD FRAUSTO WAS PAGED AND NOTIFIED OF PT TROPONIN LEVEL. MD HAD NO NEW ORDERS. TO CONTINUE MONITORING PT. POSSIBLE INTERVENTIONS AFTER HYPOTHERMIA PROTOCOL. PULMONARY - MD OQUENDO NOTIFIED ABOUT CRITICAL ABGS THROUGH OUT SHIFT. SEE VENT SETTING CHANGES TO ACCOMMODATE ABGS WELL SODIUM BICARB ORDERED IN BOTH GTT AND PUSHES. MD OQUENDO WAS MADE AWARE OF CURRENT ABX AND DECIDED TO SWITCH CEFEPIME TO ZOSYN. PRIMARY - MD ZHAO WAS ALERTED THROUGH OUT MOST OF THE DAY ABOUT PT ELECTROLYTE LEVELS, BG LEVELS, AND PT CONDITION. MD ZHAO ORDERED EXTRA NOVOLOG SC INJ TO HELP CONTROL BG, EVEN AFTER PT WAS ON ALG 4 OF INSULING GTT MAXED. MD ZHAO WAS ALSO NOTIFIED OF K LEVELS, AND WHEN PT WAS HYPOTENSIVE. ORDERS WERE RECEIVED FOR PRESSORS, AND K WAS REPLACED. MD ZHAO WAS ALSO NOTIFIED OF POOR URINE OUTPUT, STATED HE WOULD CONSULT NEPHRO TOMORROW. MD ZHAO WAS ALSO MADE AWARE THAT PT OGT WAS SUCTIONING UP COFFEE GROUND EMESIS. PROTONIX GTT WAS ORDERED. MD JOE WAS NOTIFIED OF PT BG LEVELS AFTER NOVOLOG WAS GIVEN AND INSULIN AT MAX. MD JOE SAID HE WOULD PASS IT ON TO BATTERY ENGINEER MD ANTONIO. MD ANTONIO DECIDED TO ORDER LANTUS AND POSSIBLE CONSIDERATION OF ENDO CONSULTATION. PHARMNaila GRAY CALLED AND SUGGESTED TO HELP WITH NA LEVEL, BICARB GTT COULD BE MADE WITH STERILE WATER. MD ANTONIO WAS NOTIFIED, AND WANTED THE BICARB GTT TO BE GIVEN IN STERILE WATER, SO THAT SOLN WOULD BE ISOTONIC, PT WAS STARTED ON HYPOTHERMIA WITH NO CENTRAL LINE IN PLACE. WHEN RN ARRIVED ONLY RIGHT COHEN I/O WAS PLACED. MD CULVER PLACED CENTRAL AT APPROXIMATELY 0945. RIGHT COHEN I/O WAS REMOVED AT AROUND 1400. PT IS ON TTM PROTOCOL. PT IS IN MAINTENANCE PHASE. REWARM TO BEGIN AT AROUND 0830. PT IS ON LEVO, VASSO, PAL, PROPOFOL, 3 AMP BICARB, VEC, PROTONIX, AND INSULIN GTT. ALL CRITICAL VALUES REPORTED TO CORRECT MD. ALL SIGNIFICANT EVENTS WERE NOTIFIED TO PACKAGING MATERIALS INSPECTOR AND APPROPRIATE MDS. PT IS STILL IN VERY CRITICAL CONDITION. ALL OF PT NEEDS CARED FOR. ENDORSING CARE TO SNORKELLING INSTRUCTOR RN.
[2018-08-09] MEDS: ATORVASTATIN 20 MG TAB PO SCH (20:39)
[2018-08-09] MEDS: WATER STERILE FOR IV SCH (21:45)
[2018-08-09] MEDS: SODIUM BICARBONATE IV SCH (21:45)
[2018-08-10] VITALS (107 sets, daily range): BP systolic 65–133; BP diastolic 45–77; PULSE 70–150; RESP 14–24
[2018-08-10] MEDS: ACCU-CHEK XX SCH ×24 (00:30→23:04)
[2018-08-10] MEDS: PANTOPRAZOLE IV 80 MG in SOD CHLORIDE 0.9% 100 ML IV SCH ×3 (00:33→20:46)
[2018-08-10] MEDS: INSULIN HUMAN REGULAR 100 UNIT in SOD CHLORIDE 0.9% 99 ML IV SCH ×4 (01:47→10:49)
[2018-08-10] MEDS ORDERED: PHENTOLAMINE 5 MG INJ SC ONE (02:30)
[2018-08-10] MEDS ORDERED: MAGNESIUM SULFATE 2 GM/50 ML 50 ML IVPB ONE (03:00)
[2018-08-10] MEDS: ARTIFICIAL TEARS 15 ML OPH BOTH EYES SCH ×4 (06:06→23:05)
[2018-08-10] MEDS: VECURONIUM 100 MG in DEXTROSE 5% 100 ML IV SCH (06:06)
[2018-08-10] MEDS: OCULAR LUBRICANT 3.5 GM OPH OINT BOTH EYES SCH ×4 (06:06→23:05)
[2018-08-10] MEDS: WATER STERILE FOR IV SCH (06:07)
[2018-08-10] MEDS: SODIUM BICARBONATE IV SCH (06:07)
[2018-08-10] MEDS: PIPER-TAZO 2.25 GM/NS 50 ML IVPB SCH ×4 (06:09→23:46)
[2018-08-10] MEDS: NORepinephrine 8MG/250 ML (PMX 250 ML IV SCH ×2 (06:17→19:56)
[2018-08-10] MEDS: ACETAMINOPHEN 650MG/20.3ML CUP PO SCH ×4 (06:22→23:47)
[2018-08-10] MEDS ORDERED: ACETAMINOPHEN 650 MG SUPP PR SCH (06:30)
--- NOTE | 2018-08-10 06:53 | NUR ---
EOSS PATIENT ABLE TO TAPER OFF VASO AND PAL DRIP. , KEEPING SBP MORE THAN 90 MMHG. ON LEVOPHED DRIP 5 MCG/ MIN, INSULIN GTT DOWN TO 16 UNITS/HOUR, LANTUS 40 UNITS GIVEN X 1, OFF VEC AND PROPOFOL. RASS-5, TOF 0/4. ON PROTONIX DRIP 8MG /HR. OGT ON LOW INTERMITTENT SUCTIONED , NO ACTIVE BLEEDING NOTED. MAGNESIUM 2 GMS GIVEN ORDERED. REGITINE 5 MG GIVEN SC ON THE LEFT HAND, DR. ANTONIO MADE AWARE. LABS DRAWN AWAITING FOR RESULTS WILL ENDORSED ACCORDINGLY.
[2018-08-10] MEDS: PROPOFOL 100 ML IV SCH (07:45)
--- NOTE | 2018-08-10 07:50 | CONS ---
Assessment/Plan Cardiology Heart Failure NYHA Class: IV Heart Failure Timing: Acute Heart Failure Type: Both Assessment/Plan Assessment/Plan 1) NSTEMI 2) At this time preserved LV function 3) Severe 4) VDRF 5) Multiorganfailure 6) KAYLEN 7) Transaminitis 8) Eletrolyte abnormalities 9) s/p resuscitation 10) Anemia 12) Sepsis with septic shock Plan: 1) hypothermia protocol 2) replete K and Mag per protocol 3) No beta glenn or RISHABH due to hypotension and KAYLEN 4) No candidate for invasive strategy at this time 5) Abx 6) pressors as needed attempted to reach family members given poor prognosis Consultation Date/Type/Reason Admit Date/Time Aug 09, 2018 at 01:10 Initial Consult Date Type of Consult Cardiology Date/Time of Note DATE: 08/10/18 TIME: 07:43 24 HR Interval Summary Free Text/Dictation remains in ICU, intubated, ventilated, paralyzed Subjective hx not possible: pt non-verbal, pt critical Exam/Review of Systems Vital Signs Vitals Vital Signs Date Temp Pulse Resp B/P (MAP) Pulse Ox O2 O2 Flow FiO2 Time Delivery Rate 08/10/18 91.7 78 24 109/61 100 07:00 (77) 08/10/18 90 06:06 08/09/18 Mechanical 18:00 Ventilator 08/09/18 13.0 02:34 Intake and Output 08/09/18 08/09/18 08/10/18 1515:00 23:00 07:00 IntakeIntake Total 2450.8 ml 1886.755 ml 1538.625 ml OutputOutput Total 28 ml 204 ml 320 ml BalanceBalance 2422.8 ml 1682.755 ml 1218.625 ml Exam Constitutional: non-verbal Head: normocephalic, atraumatic ENMT: intubated Neck: jvd Respiratory: diminished breath sounds Cardiovascular: regular rate and rhythm Gastrointestinal: soft Musculoskeletal: nl extremities to inspection Extremities: cyanosis Neurological: unresponsive Labs Result Diagram: 08/10/18 0600 08/10/18 0600 Results 24hrs Laboratory Tests Test 08/09/18 08:31 08/09/18 09:43 08/09/18 10:53 08/09/18 12:07 Bedside Glucose 519 *H 514 *H 346 H Blood Gas Blood Specimen arterial Source Arterial Blood 08/09/2018 11:5 Date Drawn 0:24 AM Arterial Blood 7.161 *L pH (Temp corrected ) Arterial Blood 21.9 L pCO2 (Temp correct) Arterial Blood 134.5 H pO2 (Temp corrected ) Arterial Blood 8.2 *L HCO3 Arterial Blood -20.0 L Base Excess Arterial Blood 98.4 Oxygen Saturati on Francois Test ACCEPTAB Arterial Blood Left Radial Gas Puncture Site Arterial 0.3 Blood Carboxyhe moglobin Arterial Blood 0.2 Methemoglobin Blood Gas A-a 567.6 H O2 Differential Oxyhemoglobin 97.9 Percent Blood Gas 32.2 Temperature Blood Gas 24.0 Respiration Rate Blood Gas 24 Actual Respiration Rat e Blood Gas VENT - AC Modality FiO2 100.0 Blood Gas Tidal 500.0 Volume Blood Gas Low 12.0 PEEP Setting Blood Gas REBECA HAILE Critical Value Read Back Blood Gas TM Notified Whom Blood Gas 08/09/2018 12:0 Notified Time 1:53 PM Test 08/09/18 12:16 08/09/18 12:20 08/09/18 13:40 08/09/18 13:45 Prothrombin 17.6 H Time Prothrombin 1.4 Time Ratio INR 1.44 International Normalized Rati o Activated 33.2 Partial Thrombo plast Time Fibrinogen 404.0 Bedside Glucose 189 510 *H Sodium Level 149 H Potassium Level 3.0 #L Chloride Level 107 Carbon Dioxide 16 L Level Anion Gap 26 H Blood Urea 39 H Nitrogen Creatinine 1.61 H Est Glomerular Filtrat Rate mL/min Glucose Level 568 *H Calcium Level 7.7 L Phosphorus 6.3 H Level Magnesium Level 1.9 Total Bilirubin 0.4 Direct 0.20 # Bilirubin Indirect 0.2 Bilirubin Aspartate Amino 656 H Transf (AST/SGO T) Alanine 365 H Aminotransferas e (ALT/SGPT) Alkaline 58 Phosphatase Troponin I 126.000 *H Total Protein 4.9 L Albumin 2.8 L Globulin 2.10 Albumin/Globuli 1.33 n Ratio Amylase Level 147 H Lipase 67 Test 08/09/18 13:49 08/09/18 14:25 08/09/18 15:50 08/09/18 16:46 Bedside Glucose 527 *H 485 *H 488 *H 495 *H Test 08/09/18 17:35 08/09/18 18:07 08/09/18 18:49 1/23/19 19:56 Bedside Glucose 526 *H 501 *H 496 *H White Blood 25.1 H Count Red Blood Count 4.62 Hemoglobin 9.9 L Hematocrit 32.2 L Mean 69.7 L Corpuscular Volume Mean 21.4 L Corpuscular Hemoglobin Mean 30.7 L Corpuscular Hemoglobin Conc ent Red Cell 15.6 H Distribution Width Platelet Count 272 # Mean Platelet 12.6 H Volume Immature 2.300 H Granulocytes % Neutrophils % 87.5 H Segmented 88 H Neutrophils % (Manual) Band 2 Neutrophils % (Manual) Lymphocytes % 7.2 L Lymphocytes % 9 L (Manual) Monocytes % 2.8 Monocytes % 1 (Manual) Eosinophils % 0.0 Basophils % 0.2 Nucleated Red 0.2 H Blood Cells % Immature 0.570 H Granulocytes # Neutrophils # 22.0 H Neutrophils # 22.2 H (Manual) Band 0.5 Neutrophils # Lymphocytes 2.2 (Manual) Lymphocytes # 1.8 Monocytes # 0.7 Monocytes # 0.2 L (Manual) Eosinophils # 0.0 Basophils # 0.1 Nucleated Red 0.0 Blood Cells # Giant Platelets 2 H Platelet @See below Morphology Comment Poikilocytosis 2+ Anisocytosis 2+ Microcytosis 2+ Prothrombin 17.1 H Time Prothrombin 1.3 Time Ratio INR 1.38 International Normalized Rati o Activated 33.2 Partial Thrombo plast Time Fibrinogen 432.0 # Blood Gas Blood arterial Specimen Source Arterial Blood 08/09/2018 6:00: Date Drawn 16 PM Arterial Blood 7.356 pH (Temp corrected ) Arterial Blood 25.2 L pCO2 (Temp correct) Arterial Blood 120.2 H pO2 (Temp corrected ) Arterial Blood 14.4 L HCO3 Arterial Blood -10.7 L Base Excess Arterial Blood 98.2 Oxygen Saturati on Francois Test N/A Arterial Blood LB Gas Puncture Site Arterial 0.2 Blood Carboxyhe moglobin Arterial Blood 0.2 Methemoglobin Blood Gas A-a 576.7 H O2 Differential Oxyhemoglobin 97.8 Percent Blood Gas 33.2 Temperature Blood Gas 24.0 Respiration Rate Blood Gas 24 Actual Respiration Rat e Blood Gas VENT - AC Modality FiO2 100.0 Blood Gas Tidal 500.0 Volume Blood Gas Low 12.0 PEEP Setting Blood Gas [place] Notified Whom Blood Gas 08/09/2018 6:11: Notified Time 29 PM Sodium Level 149 H Potassium Level 3.4 L Chloride Level 104 Carbon Dioxide 18 L Level Anion Gap 27 H Blood Urea 39 H Nitrogen Creatinine 1.75 H Est Glomerular Filtrat Rate mL/min Glucose Level 566 *H Calcium Level 7.5 L Total Bilirubin 0.2 Direct 0.00 # Bilirubin Indirect 0.2 Bilirubin Aspartate Amino 901 H Transf (AST/SGO T) Alanine 539 H Aminotransferas e (ALT/SGPT) Alkaline 58 Phosphatase Total Protein 5.0 L Albumin 2.9 L Test 08/09/18 20:50 08/09/18 21:43 08/09/18 23:30 08/10/18 00:07 Bedside Glucose 485 *H 451 *H 444 *H Blood Gas Blood Specimen arterial Source Arterial Blood 08/09/2018 11:4 Date Drawn 0:57 PM Arterial Blood 7.485 H pH (Temp corrected ) Arterial Blood 27.0 L pCO2 (Temp correct) Arterial Blood 56.8 L pO2 (Temp corrected ) Arterial Blood 20.7 L HCO3 Arterial Blood -2.9 Base Excess Arterial Blood 95.0 Oxygen Saturati on Francois Test ACCEPTAB Arterial Blood Right Radial Gas Puncture Site Arterial 0.3 Blood Carboxyhe moglobin Arterial Blood 0.2 Methemoglobin Blood Gas A-a 565.6 H O2 Differential Oxyhemoglobin 94.5 Percent Blood Gas 33.0 Temperature Blood Gas 24.0 Respiration Rate Blood Gas 24 Actual Respiration Rat e Blood Gas VENT - AC Modality FiO2 90.0 Blood Gas Tidal 500.0 Volume Blood Gas Low 12.0 PEEP Setting Blood Gas [place] Notified Whom Blood Gas 08/09/2018 11:5 Notified Time 4:43 PM Test 08/10/18 00:19 08/10/18 00:24 08/10/18 01:43 08/10/18 02:44 White Blood 21.5 H Count Red Blood Count 4.60 Hemoglobin 9.9 L Hematocrit 31.3 L Mean 68.0 L Corpuscular Volume Mean 21.5 L Corpuscular Hemoglobin Mean 31.6 L Corpuscular Hemoglobin Conc ent Red Cell 15.3 H Distribution Width Platelet Count 268 Mean Platelet 12.3 H Volume Immature 1.400 H Granulocytes % Neutrophils % 89.3 H Lymphocytes % 6.4 L Monocytes % 2.8 Eosinophils % 0.0 Basophils % 0.1 Nucleated Red 0.0 Blood Cells % Immature 0.290 H Granulocytes # Neutrophils # 19.2 H Lymphocytes # 1.4 Monocytes # 0.6 Eosinophils # 0.0 Basophils # 0.0 Nucleated Red 0.0 Blood Cells # Prothrombin 16.6 H Time Prothrombin 1.3 Time Ratio INR 1.33 International Normalized Rati o Activated 29.1 Partial Thrombo plast Time Fibrinogen 407.0 # Sodium Level 148 H Potassium Level 3.2 L Chloride Level 103 Carbon Dioxide 26 Level Anion Gap 19 #H Blood Urea 40 H Nitrogen Creatinine 1.87 H Est Glomerular Filtrat Rate mL/min Glucose Level 432 *H Calcium Level 7.7 L Phosphorus 1.6 L Level Magnesium Level 1.6 L Total Bilirubin 0.2 Direct 0.00 Bilirubin Indirect 0.2 Bilirubin Aspartate Amino 842 H Transf (AST/SGO T) Alanine 536 H Aminotransferas e (ALT/SGPT) Alkaline 51 Phosphatase Troponin I 168.000 *H Total Protein 5.2 L Albumin 2.9 L Globulin 2.30 Albumin/Globuli 1.26 n Ratio Amylase Level 437 #H Lipase 993 H Bedside Glucose 414 *H 376 H 360 H Test 08/10/18 03:58 08/10/18 04:38 08/10/18 05:50 08/10/18 06:00 Bedside Glucose 409 *H 308 H 275 H White Blood 20.4 H Count Red Blood Count 4.53 Hemoglobin 9.8 L Hematocrit 29.9 L Mean 66.0 L Corpuscular Volume Mean 21.6 L Corpuscular Hemoglobin Mean 32.8 Corpuscular Hemoglobin Conc ent Red Cell 15.0 H Distribution Width Platelet Count 234 Mean Platelet 11.9 H Volume Immature 1.500 H Granulocytes % Neutrophils % 89.2 H Lymphocytes % 6.4 L Monocytes % 2.8 Eosinophils % 0.0 Basophils % 0.1 Nucleated Red 0.0 Blood Cells % Immature 0.310 H Granulocytes # Neutrophils # 18.2 H Lymphocytes # 1.3 Monocytes # 0.6 Eosinophils # 0.0 Basophils # 0.0 Nucleated Red 0.0 Blood Cells # Prothrombin 16.3 H Time Prothrombin 1.3 Time Ratio INR 1.30 International Normalized Rati o Activated 30.7 Partial Thrombo plast Time Sodium Level 151 H Potassium Level 2.9 *L Chloride Level 103 Carbon Dioxide 33 H Level Anion Gap 15 H Blood Urea 42 H Nitrogen Creatinine 1.89 H Est Glomerular Filtrat Rate mL/min Glucose Level 254 #H Calcium Level 7.5 L Phosphorus 1.9 L Level Magnesium Level 2.4 Total Bilirubin 0.3 Direct 0.00 Bilirubin Indirect 0.3 Bilirubin Aspartate Amino 661 H Transf (AST/SGO T) Alanine 474 H Aminotransferas e (ALT/SGPT) Alkaline 50 Phosphatase Troponin I Pending Total Protein 5.2 L Albumin 2.8 L Globulin 2.40 Albumin/Globuli 1.16 n Ratio Amylase Level 835 #H Lipase 2551 H Test 08/10/18 06:07 08/10/18 06:44 Blood Gas Blood arterial Specimen Source Arterial Blood 08/10/2018 5:30: Date Drawn 22 AM Arterial Blood 7.613 *H pH (Temp corrected ) Arterial Blood 25.2 L pCO2 (Temp correct) Arterial Blood 116.7 H pO2 (Temp corrected ) Arterial Blood 25.7 HCO3 Arterial Blood 3.7 H Base Excess Arterial Blood 98.5 Oxygen Saturati on Francois Test ACCEPTAB Arterial Blood Right Radial Gas Puncture Site Arterial 0.3 Blood Carboxyhe moglobin Arterial Blood 0.4 Methemoglobin Blood Gas A-a 580.5 H O2 Differential Oxyhemoglobin 97.8 Percent Blood Gas 33.0 Temperature Blood Gas 24.0 Respiration Rate Blood Gas 24 Actual Respiration Rat e Blood Gas VENT - AC Modality FiO2 100.0 Blood Gas Tidal 500.0 Volume Blood Gas Low 12.0 PEEP Setting Blood Gas KEIKO Chung RN Critical Value Read Back Blood Gas [place] Notified Whom Blood Gas 08/10/2018 5:50: Notified Time 34 AM Bedside Glucose 262 H ERICK MAYBERRY MD Aug 10, 2018 07:50
[2018-08-10] MEDS ORDERED: SOD CHLORIDE 0.9% 1,000 ML IV ONE (08:00)
[2018-08-10] MEDS: POTASSIUM CHLORIDE 100 ML IVPB SCH ×2 (08:05→10:19)
--- NOTE | 2018-08-10 08:40 | NUR ---
RE-WARMING PHASE BEGAN 839
[2018-08-10] MEDS: ASPIRIN 81 MG TAB PO SCH (09:00)
--- NOTE | 2018-08-10 09:26 | CONS ---
Assessment/Plan Assessment/Plan Result Diagram: 08/10/18 0600 08/10/18 0600 Results 24hrs Laboratory Tests Test 08/09/18 09:43 08/09/18 10:53 08/09/18 12:07 08/09/18 12:16 Bedside Glucose 514 *H 346 H Blood Gas Blood arterial Specimen Source Arterial Blood 08/09/2018 11:50 Date Drawn :24 AM Arterial Blood 7.161 *L pH (Temp corrected ) Arterial Blood 21.9 L pCO2 (Temp correct) Arterial Blood 134.5 H pO2 (Temp corrected ) Arterial Blood 8.2 *L HCO3 Arterial Blood -20.0 L Base Excess Arterial Blood 98.4 Oxygen Saturati on Francois Test ACCEPTAB Arterial Blood Left Radial Gas Puncture Site Arterial 0.3 Blood Carboxyhe moglobin Arterial Blood 0.2 Methemoglobin Blood Gas A-a 567.6 H O2 Differential Oxyhemoglobin 97.9 Percent Blood Gas 32.2 Temperature Blood Gas 24.0 Respiration Rate Blood Gas 24 Actual Respiration Rat e Blood Gas VENT - AC Modality FiO2 100.0 Blood Gas Tidal 500.0 Volume Blood Gas Low 12.0 PEEP Setting Blood Gas REBECA HAILE Critical Value Read Back Blood Gas TM Notified Whom Blood Gas 08/09/2018 12:01 Notified Time :53 PM Prothrombin 17.6 H Time Prothrombin 1.4 Time Ratio INR 1.44 International Normalized Rati o Activated 33.2 Partial Thrombo plast Time Fibrinogen 404.0 Test 08/09/18 12:20 08/09/18 13:40 08/09/18 13:45 08/09/18 13:49 Bedside Glucose 189 510 *H 527 *H Sodium Level 149 H Potassium Level 3.0 #L Chloride Level 107 Carbon Dioxide 16 L Level Anion Gap 26 H Blood Urea 39 H Nitrogen Creatinine 1.61 H Est Glomerular Filtrat Rate mL/min Glucose Level 568 *H Calcium Level 7.7 L Phosphorus 6.3 H Level Magnesium Level 1.9 Total Bilirubin 0.4 Direct 0.20 # Bilirubin Indirect 0.2 Bilirubin Aspartate Amino 656 H Transf (AST/SGO T) Alanine 365 H Aminotransferas e (ALT/SGPT) Alkaline 58 Phosphatase Troponin I 126.000 *H Total Protein 4.9 L Albumin 2.8 L Globulin 2.10 Albumin/Globuli 1.33 n Ratio Amylase Level 147 H Lipase 67 Test 08/09/18 14:25 08/09/18 15:50 08/09/18 16:46 08/09/18 17:35 Bedside Glucose 485 *H 488 *H 495 *H 526 *H Test 08/09/18 18:07 08/09/18 18:49 08/09/18 19:56 08/09/18 20:50 White Blood 25.1 H Count Red Blood Count 4.62 Hemoglobin 9.9 L Hematocrit 32.2 L Mean 69.7 L Corpuscular Volume Mean 21.4 L Corpuscular Hemoglobin Mean 30.7 L Corpuscular Hemoglobin Conc ent Red Cell 15.6 H Distribution Width Platelet Count 272 # Mean Platelet 12.6 H Volume Immature 2.300 H Granulocytes % Neutrophils % 87.5 H Segmented 88 H Neutrophils % (Manual) Band 2 Neutrophils % (Manual) Lymphocytes % 7.2 L Lymphocytes % 9 L (Manual) Monocytes % 2.8 Monocytes % 1 (Manual) Eosinophils % 0.0 Basophils % 0.2 Nucleated Red 0.2 H Blood Cells % Immature 0.570 H Granulocytes # Neutrophils # 22.0 H Neutrophils # 22.2 H (Manual) Band 0.5 Neutrophils # Lymphocytes 2.2 (Manual) Lymphocytes # 1.8 Monocytes # 0.7 Monocytes # 0.2 L (Manual) Eosinophils # 0.0 Basophils # 0.1 Nucleated Red 0.0 Blood Cells # Giant Platelets 2 H Platelet @See below Morphology Comment Poikilocytosis 2+ Anisocytosis 2+ Microcytosis 2+ Prothrombin 17.1 H Time Prothrombin 1.3 Time Ratio INR 1.38 International Normalized Rati o Activated 33.2 Partial Thrombo plast Time Fibrinogen 432.0 # Blood Gas Blood arterial Specimen Source Arterial Blood 08/09/2018 6:00: Date Drawn 16 PM Arterial Blood 7.356 pH (Temp corrected ) Arterial Blood 25.2 L pCO2 (Temp correct) Arterial Blood 120.2 H pO2 (Temp corrected ) Arterial Blood 14.4 L HCO3 Arterial Blood -10.7 L Base Excess Arterial Blood 98.2 Oxygen Saturati on Francois Test N/A Arterial Blood LB Gas Puncture Site Arterial 0.2 Blood Carboxyhe moglobin Arterial Blood 0.2 Methemoglobin Blood Gas A-a 576.7 H O2 Differential Oxyhemoglobin 97.8 Percent Blood Gas 33.2 Temperature Blood Gas 24.0 Respiration Rate Blood Gas 24 Actual Respiration Rat e Blood Gas VENT - AC Modality FiO2 100.0 Blood Gas Tidal 500.0 Volume Blood Gas Low 12.0 PEEP Setting Blood Gas [place] Notified Whom Blood Gas 08/09/2018 6:11: Notified Time 29 PM Sodium Level 149 H Potassium Level 3.4 L Chloride Level 104 Carbon Dioxide 18 L Level Anion Gap 27 H Blood Urea 39 H Nitrogen Creatinine 1.75 H Est Glomerular Filtrat Rate mL/min Glucose Level 566 *H Calcium Level 7.5 L Total Bilirubin 0.2 Direct 0.00 # Bilirubin Indirect 0.2 Bilirubin Aspartate Amino 901 H Transf (AST/SGO T) Alanine 539 H Aminotransferas e (ALT/SGPT) Alkaline 58 Phosphatase Total Protein 5.0 L Albumin 2.9 L Bedside Glucose 501 *H 496 *H 485 *H Test 08/09/18 21:43 08/09/18 23:30 08/10/18 00:07 08/10/18 00:19 Bedside Glucose 451 *H 444 *H Blood Gas Blood arterial Specimen Source Arterial Blood 08/09/2018 11:40 Date Drawn :57 PM Arterial Blood 7.485 H pH (Temp corrected ) Arterial Blood 27.0 L pCO2 (Temp correct) Arterial Blood 56.8 L pO2 (Temp corrected ) Arterial Blood 20.7 L HCO3 Arterial Blood -2.9 Base Excess Arterial Blood 95.0 Oxygen Saturati on Francois Test ACCEPTAB Arterial Blood Right Radial Gas Puncture Site Arterial 0.3 Blood Carboxyhe moglobin Arterial Blood 0.2 Methemoglobin Blood Gas A-a 565.6 H O2 Differential Oxyhemoglobin 94.5 Percent Blood Gas 33.0 Temperature Blood Gas 24.0 Respiration Rate Blood Gas 24 Actual Respiration Rat e Blood Gas VENT - AC Modality FiO2 90.0 Blood Gas Tidal 500.0 Volume Blood Gas Low 12.0 PEEP Setting Blood Gas [place] Notified Whom Blood Gas 08/09/2018 11:54 Notified Time :43 PM White Blood 21.5 H Count Red Blood Count 4.60 Hemoglobin 9.9 L Hematocrit 31.3 L Mean 68.0 L Corpuscular Volume Mean 21.5 L Corpuscular Hemoglobin Mean 31.6 L Corpuscular Hemoglobin Conc ent Red Cell 15.3 H Distribution Width Platelet Count 268 Mean Platelet 12.3 H Volume Immature 1.400 H Granulocytes % Neutrophils % 89.3 H Lymphocytes % 6.4 L Monocytes % 2.8 Eosinophils % 0.0 Basophils % 0.1 Nucleated Red 0.0 Blood Cells % Immature 0.290 H Granulocytes # Neutrophils # 19.2 H Lymphocytes # 1.4 Monocytes # 0.6 Eosinophils # 0.0 Basophils # 0.0 Nucleated Red 0.0 Blood Cells # Prothrombin 16.6 H Time Prothrombin 1.3 Time Ratio INR 1.33 International Normalized Rati o Activated 29.1 Partial Thrombo plast Time Fibrinogen 407.0 # Sodium Level 148 H Potassium Level 3.2 L Chloride Level 103 Carbon Dioxide 26 Level Anion Gap 19 #H Blood Urea 40 H Nitrogen Creatinine 1.87 H Est Glomerular Filtrat Rate mL/min Glucose Level 432 *H Calcium Level 7.7 L Phosphorus 1.6 L Level Magnesium Level 1.6 L Total Bilirubin 0.2 Direct 0.00 Bilirubin Indirect 0.2 Bilirubin Aspartate Amino 842 H Transf (AST/SGO T) Alanine 536 H Aminotransferas e (ALT/SGPT) Alkaline 51 Phosphatase Troponin I 168.000 *H Total Protein 5.2 L Albumin 2.9 L Globulin 2.30 Albumin/Globuli 1.26 n Ratio Amylase Level 437 #H Lipase 993 H Test 08/10/18 00:24 08/10/18 01:43 08/10/18 02:44 08/10/18 03:58 Bedside Glucose 414 *H 376 H 360 H 409 *H Test 08/10/18 04:38 08/10/18 05:50 08/10/18 06:00 08/10/18 06:07 Bedside Glucose 308 H 275 H White Blood 20.4 H Count Red Blood Count 4.53 Hemoglobin 9.8 L Hematocrit 29.9 L Mean 66.0 L Corpuscular Volume Mean 21.6 L Corpuscular Hemoglobin Mean 32.8 Corpuscular Hemoglobin Conc ent Red Cell 15.0 H Distribution Width Platelet Count 234 Mean Platelet 11.9 H Volume Immature 1.500 H Granulocytes % Neutrophils % 89.2 H Lymphocytes % 6.4 L Monocytes % 2.8 Eosinophils % 0.0 Basophils % 0.1 Nucleated Red 0.0 Blood Cells % Immature 0.310 H Granulocytes # Neutrophils # 18.2 H Lymphocytes # 1.3 Monocytes # 0.6 Eosinophils # 0.0 Basophils # 0.0 Nucleated Red 0.0 Blood Cells # Prothrombin 16.3 H Time Prothrombin 1.3 Time Ratio INR 1.30 International Normalized Rati o Activated 30.7 Partial Thrombo plast Time Fibrinogen 443.0 # Sodium Level 151 H Potassium Level 2.9 *L Chloride Level 103 Carbon Dioxide 33 H Level Anion Gap 15 H Blood Urea 42 H Nitrogen Creatinine 1.89 H Est Glomerular Filtrat Rate mL/min Glucose Level 254 #H Calcium Level 7.5 L Phosphorus 1.9 L Level Magnesium Level 2.4 Total Bilirubin 0.3 Direct 0.00 Bilirubin Indirect 0.3 Bilirubin Aspartate Amino 661 H Transf (AST/SGO T) Alanine 474 H Aminotransferas e (ALT/SGPT) Alkaline 50 Phosphatase Troponin I 156.000 *H Total Protein 5.2 L Albumin 2.8 L Globulin 2.40 Albumin/Globuli 1.16 n Ratio Amylase Level 835 #H Lipase 2551 H Blood Gas Blood Specimen arterial Source Arterial Blood 08/10/2018 5:30 Date Drawn :22 AM Arterial Blood 7.613 *H pH (Temp corrected ) Arterial Blood 25.2 L pCO2 (Temp correct) Arterial Blood 116.7 H pO2 (Temp corrected ) Arterial Blood 25.7 HCO3 Arterial Blood 3.7 H Base Excess Arterial Blood 98.5 Oxygen Saturati on Francois Test ACCEPTAB Arterial Blood Right Radial Gas Puncture Site Arterial 0.3 Blood Carboxyhe moglobin Arterial Blood 0.4 Methemoglobin Blood Gas A-a 580.5 H O2 Differential Oxyhemoglobin 97.8 Percent Blood Gas 33.0 Temperature Blood Gas 24.0 Respiration Rate Blood Gas 24 Actual Respiration Rat e Blood Gas VENT - AC Modality FiO2 100.0 Blood Gas Tidal 500.0 Volume Blood Gas Low 12.0 PEEP Setting Blood Gas KEIKO R Critical Value RN Read Back Blood Gas BL Notified Whom Blood Gas 08/10/2018 5:50 Notified Time :34 AM Test 08/10/18 06:44 08/10/18 08:01 08/10/18 09:02 Bedside Glucose 262 H 251 H 256 H Consultation Date/Type/Reason Admit Date/Time Aug 09, 2018 at 01:10 Initial Consult Date Type of Consult Patient's condition is critical. Currently on rewarming phase of hypothermia protocol. Patient has remained hemodynamically stable. General exam; elderly male, orally intubated, sedated. Currently no distress. Reason for Consultation H HEENT exam; supple neck, positive JVD. No lymphadenopathy. Midline trachea. No thyromegaly. Patient is edentulous. Pupils are small bilaterally. Chest exam; diminished breath sounds bilaterally. S1-S2 audible, no murmurs. Regular rhythm. Abdomen exam; soft, bowel sounds are sluggish. No organomegaly. Abdomen is mildly protuberant. Extremity exam; no peripheral edema. [employer] exam; patient is sedated. Exam/Review of Systems Vital Signs Vitals Vital Signs Date Temp Pulse Resp B/P (MAP) Pulse Ox O2 O2 Flow FiO2 Time Delivery Rate 08/10/18 85 09:00 08/10/18 91.3 80 18 110/63 100 09:00 (79) 08/09/18 Mechanical 18:00 Ventilator 08/09/18 13.0 02:34 Intake and Output 08/09/18 08/09/18 08/10/18 1515:00 23:00 07:00 IntakeIntake Total 2450.8 ml 1886.755 ml 1538.625 ml OutputOutput Total 28 ml 204 ml 374 ml BalanceBalance 2422.8 ml 1682.755 ml 1164.625 ml Exam Chest x-ray was reviewed from today which is showing pulmonary edema with possibly bilateral pneumonia. Ventilator setting; AC of 24, tidal volume 500, PEEP of 12, 90% FiO2. Patient is currently on propofol at 5 mics per kilogram per minute. Off Levophed. Assessment recommendations; next 1. Patient admitted with sepsis from pneumonia with acute AL with significant elevation in troponins. 2. UTI with likely urosepsis. 3. Likely acute on chronic renal insufficiency. 4. Status post CPR with cardiac arrest in ER requiring intubation, patient currently getting off hypothermia protocol. 5. Difficult to rule out any anoxic brain injury. 6. Pulmonary edema. 7. History of diabetes and hypertension. 8. Interval correction of metabolic acidosis. Patient currently being hyperventilated. 9. Severe hypoxemia. Obtain ABG. Decrease assist control rate to 16. Continue current supportive care. Further recommendations per realtime court reporter. Will monitor renal function. Obtain follow-up chest x-ray 24 hours. Further recommendations once ABG is perf ormed. Meanwhile discontinue sodium bicarbonate drip. Mental status to be assessed once patient is off hypothermia protocol. 40 minutes of critical care time was spent evaluating the patient. Medications Medications Current Medications Vancomycin HCl (Vanco Iv Per Pharmacy) VANCOMYCIN PER PHARMACY PER PROTOCOL XX ; Start 08/09/18 at 05:00 Ondansetron HCl (Zofran Inj) 4 mg Q4 PRN IV nausea; Start 08/09/18 at 04:00 Pantoprazole (Protonix Iv) 40 mg DAILY@0600 IV Last administered on 08/09/18at 06:06; Admin Dose 40 MG; Start 08/09/18 at 06:00; Status Hold Vancomycin/Sodium Chloride 250 ml @ 125 mls/hr Q24H IVPB Last administered on 08/09/18at 16:31; Admin Dose 125 MLS/HR; Start 08/09/18 at 16:00 Norepinephrine 250 ml @ 1.875 mls/ hr TITRATE IV Last administered on 08/10/18at 06:17; Admin Dose 9.375 MLS/HR; Start 08/09/18 at 06:00 Propofol 100 ml @ 2.1 mls/hr PER PROTOCOL IV Last administered on 08/10/18at 07:45; Admin Dose 2.1 MLS/HR; Start 08/09/18 at 06:30 Vecuronium [place] 100 mg/ Dextrose 100 ml @ 4.2 mls/hr [id number] IV Last administered on 08/10/18at 06:06; Admin Dose 0 MLS/HR; Start 08/09/18 at 06:07 Acetaminophen (Tylenol Supp) 650 mg Q4H PRN [place] TEMP > 37C; Start 08/09/18 at 06:30 Acetaminophen (Tylenol Liquid) 650 mg Q4H PRN PO TEMP > 37C; Start 08/09/18 at 06:30 Acetaminophen (Tylenol Liquid) 500 mg Q6H PO Last administered on 08/10/18at 06:22; Admin Dose 500 MG; Start 08/10/18 at 06:30; Stop 08/11/18 at 06:29 Meperidine HCl (Demerol) 12.5 mg Q4H PRN IV AGITATION; Start 08/09/18 at 06:30 Meperidine HCl (Demerol) 25 mg Q4H PRN IV MUSCLE SPASMS; Start 08/09/18 at 06:30 Eye Lubricant (Akwa Oint) 1 applic Q6 BOTH EYES Last administered on 08/10/18at 06:06; Admin Dose 1 APPLIC; Start 08/09/18 at 12:00 Eye Lubricant (Artificial Tears Oph) 2 drop Q6 BOTH EYES Last administered on 08/10/18at 06:06; Admin Dose 2 DROP; Start 08/09/18 at 12:00 Diagnostic Test (Pha) (Accu-Chek) 1 ea Q1H XX Last administered on 08/10/18at 08:59; Admin Dose 1 EA; Start 08/09/18 at 06:30 Insulin Human Regular 100 unit/ Sodium Chloride 100 ml @ 0 mls/hr PER PROTOCOL IV Last administered on 08/10/18at 05:14; Admin Dose 28 MLS/HR; Start 08/09/18 at 06:30 Miscellaneous Information (* Miscellaneous Pharmacy Order) Treatment of Hypoglycemia: 1.BG 51... Per protocol XX ; Start 08/09/18 at 06:30 Dextrose (D50w Syringe) 25 ml Q15M PRN IV DECREASED GLUCOSE; Start 08/09/18 at 06:30 Dextrose (D50w Syringe) 50 ml Q15M PRN IV DECREASED GLUCOSE; Start 08/09/18 at 06:30 Vasopressin 60 unit/Dextrose 60 ml @ 0 mls/hr Q12H IV Last administered on 08/09/18at 16:05; Admin Dose 2.4 MLS/HR; Start 08/09/18 at 11:00 Piperacillin Sod/ Tazobactam Sod 50 ml @ 100 mls/hr Q6 IVPB Last administered on 08/10/18at 06:09; Admin Dose 100 MLS/HR; Start 08/09/18 at 11:00 Aspirin (Aspirin) 81 mg DAILY PO ; Start 08/10/18 at 09:00 Atorvastatin Calcium (Lipitor) 20 mg HS PO Last administered on 08/09/18at 20:39; Admin Dose 20 MG; Start 08/09/18 at 21:00 Pantoprazole 80 mg/Sodium Chloride 100 ml @ 10 mls/hr Q10H IV Last administered on 08/10/18at 00:33; Admin Dose 10 MLS/HR; Start 08/09/18 at 16:00 Phenylephrine HCl 80 mg/Dextrose 250 ml @ 18.75 mls/ hr TITRATE IV Last administered on 08/09/18at 16:08; Admin Dose 37.5 MLS/HR; Start 08/09/18 at 16:00 Potassium Chloride 100 ml @ 50 mls/hr Q2H IVPB Last administered on 08/10/18at 08:05; Admin Dose 50 MLS/HR; Start 08/10/18 at 08:00; Stop 08/10/18 at 11:59 Date/Time of Note Date/Time of Note DATE: 08/10/18 TIME: 09:21 WENDY STEVENSON Aug 10, 2018 09:26
[2018-08-10] MEDS ORDERED: ONDANSETRON 4 MG INJ IV PRN (09:30)
--- NOTE | 2018-08-10 10:55 | PN ---
DATE: 08/09/2018 SUBJECTIVE: Patient remains intubated and unresponsive. PHYSICAL EXAMINATION: VITAL SIGNS: Blood pressure 110/63, pulse 80, temperature low at 91.3, pulse oximetry is 100%. LUNGS: Mild rhonchi bilaterally. HEART: Regular rate and rhythm. ABDOMEN: Soft, normoactive bowel sounds. EXTREMITIES: No clubbing, cyanosis, or edema. LABORATORY DATA: White blood cell count is 20.4, hemoglobin is 9.8, platelet count is 234,000. [place] um 151, potassium 2.9, chloride 103, BUN 42, creatinine 1.89, glucose is 256. ASSESSMENT AND PLAN: 1. A 77-year-old female status post cardiac arrest. 2. Acute non-ST elevation myocardial infarction. 3. Acute respiratory failure. 4. Septic shock. Blood and urine cultures are negative so far. 5. Hypernatremia. 6. Hypokalemia. 7. Acute kidney injury. 8. Type 2 diabetes mellitus. 9. Prognosis is guarded. PLAN: 1. Continue supportive care. 2. Check pending culture results. 3. Potassium supplementation. 4. Pulmonary, cardiology, and infectious disease followup. Dictated By: JAYE MENESES/OPAL Conf#: [id number] DID#: [id number]
[2018-08-10] MEDS: VASOPRESSIN 60 UNIT in DEXTROSE 5% 57 ML IV SCH ×2 (11:00→22:58)
--- NOTE | 2018-08-10 11:17 | CONS ---
Date/Time of Note Date/Time of Note DATE: 08/10/18 TIME: 11:16 Assessment/Plan Assessment/Plan Assessment/Plan 1.. Non Oliguric Acute kidney injury due to ATN 2. acute hypoxemic respiratory failure intubated on ventilator 3. severe sepsis due to possible aspiration PNA 4. S/p Cardiac Arrest - currently on hypothermia protocol 5. Encephalopathy r/o anoxic damage from cardiac arrest 6. H/o HTN 7. H/o DM II 8. h/o HL Plan: Seen in ICU, BUN/Cr slightly went up, making urine output 30-40 cc/hr, IV abx for Severe sepsis, Renally dose all abx and Monitor electrolytes Cardiology following, Plan for rewarming phase today Renal US to assees for CKD and to rule out hydronephrosis K and magnesium replacement Thanks for consultatoin, I will continue to maria de jesus sanchez Result Diagram: 08/10/18 0600 08/10/18 0600 Results 24hrs Laboratory Tests Test 08/09/18 12:07 08/09/18 12:16 08/09/18 12:20 08/09/18 13:40 Blood Gas Blood arterial Specimen Source Arterial Blood 08/09/2018 11:50 Date Drawn :24 AM Arterial Blood 7.161 *L pH (Temp corrected ) Arterial Blood 21.9 L pCO2 (Temp correct) Arterial Blood 134.5 H pO2 (Temp corrected ) Arterial Blood 8.2 *L HCO3 Arterial Blood -20.0 L Base Excess Arterial Blood 98.4 Oxygen Saturati on Francois Test ACCEPTAB Arterial Blood Left Radial Gas Puncture Site Arterial 0.3 Blood Carboxyhe moglobin Arterial Blood 0.2 Methemoglobin Blood Gas A-a 567.6 H O2 Differential Oxyhemoglobin 97.9 Percent Blood Gas 32.2 Temperature Blood Gas 24.0 Respiration Rate Blood Gas 24 Actual Respiration Rat e Blood Gas VENT - AC Modality FiO2 100.0 Blood Gas Tidal 500.0 Volume Blood Gas Low 12.0 PEEP Setting Blood Gas REBECA HAILE Critical Value Read Back Blood Gas TM Notified Whom Blood Gas 08/09/2018 12:01 Notified Time :53 PM Prothrombin 17.6 H Time Prothrombin 1.4 Time Ratio INR 1.44 International Normalized Rati o Activated 33.2 Partial Thrombo plast Time Fibrinogen 404.0 Bedside Glucose 189 Sodium Level 149 H Potassium Level 3.0 #L Chloride Level 107 Carbon Dioxide 16 L Level Anion Gap 26 H Blood Urea 39 H Nitrogen Creatinine 1.61 H Est Glomerular Filtrat Rate mL/min Glucose Level 568 *H Calcium Level 7.7 L Phosphorus 6.3 H Level Magnesium Level 1.9 Total Bilirubin 0.4 Direct 0.20 # Bilirubin Indirect 0.2 Bilirubin Aspartate Amino 656 H Transf (AST/SGO T) Alanine 365 H Aminotransferas e (ALT/SGPT) Alkaline 58 Phosphatase Troponin I 126.000 *H Total Protein 4.9 L Albumin 2.8 L Globulin 2.10 Albumin/Globuli 1.33 n Ratio Amylase Level 147 H Lipase 67 Test 08/09/18 13:45 08/09/18 13:49 08/09/18 14:25 08/09/18 15:50 Bedside Glucose 510 *H 527 *H 485 *H 488 *H Test 08/09/18 16:46 08/09/18 17:35 08/09/18 18:07 08/09/18 18:49 Bedside Glucose 495 *H 526 *H 501 *H White Blood 25.1 H Count Red Blood Count 4.62 Hemoglobin 9.9 L Hematocrit 32.2 L Mean 69.7 L Corpuscular Volume Mean 21.4 L Corpuscular Hemoglobin Mean 30.7 L Corpuscular Hemoglobin Conc ent Red Cell 15.6 H Distribution Width Platelet Count 272 # Mean Platelet 12.6 H Volume Immature 2.300 H Granulocytes % Neutrophils % 87.5 H Segmented 88 H Neutrophils % (Manual) Band 2 Neutrophils % (Manual) Lymphocytes % 7.2 L Lymphocytes % 9 L (Manual) Monocytes % 2.8 Monocytes % 1 (Manual) Eosinophils % 0.0 Basophils % 0.2 Nucleated Red 0.2 H Blood Cells % Immature 0.570 H Granulocytes # Neutrophils # 22.0 H Neutrophils # 22.2 H (Manual) Band 0.5 Neutrophils # Lymphocytes 2.2 (Manual) Lymphocytes # 1.8 Monocytes # 0.7 Monocytes # 0.2 L (Manual) Eosinophils # 0.0 Basophils # 0.1 Nucleated Red 0.0 Blood Cells # Giant Platelets 2 H Platelet @See below Morphology Comment Poikilocytosis 2+ Anisocytosis 2+ Microcytosis 2+ Prothrombin 17.1 H Time Prothrombin 1.3 Time Ratio INR 1.38 International Normalized Rati o Activated 33.2 Partial Thrombo plast Time Fibrinogen 432.0 # Blood Gas Blood Specimen arterial Source Arterial Blood 08/09/2018 6:00 Date Drawn :16 PM Arterial Blood 7.356 pH (Temp corrected ) Arterial Blood 25.2 L pCO2 (Temp correct) Arterial Blood 120.2 H pO2 (Temp corrected ) Arterial Blood 14.4 L HCO3 Arterial Blood -10.7 L Base Excess Arterial Blood 98.2 Oxygen Saturati on Francois Test N/A Arterial Blood LB Gas Puncture Site Arterial 0.2 Blood Carboxyhe moglobin Arterial Blood 0.2 Methemoglobin Blood Gas A-a 576.7 H O2 Differential Oxyhemoglobin 97.8 Percent Blood Gas 33.2 Temperature Blood Gas 24.0 Respiration Rate Blood Gas 24 Actual Respiration Rat e Blood Gas VENT - AC Modality FiO2 100.0 Blood Gas Tidal 500.0 Volume Blood Gas Low 12.0 PEEP Setting Blood Gas [place] Notified Whom Blood Gas 08/09/2018 6:11 Notified Time :29 PM Sodium Level 149 H Potassium Level 3.4 L Chloride Level 104 Carbon Dioxide 18 L Level Anion Gap 27 H Blood Urea 39 H Nitrogen Creatinine 1.75 H Est Glomerular Filtrat Rate mL/min Glucose Level 566 *H Calcium Level 7.5 L Total Bilirubin 0.2 Direct 0.00 # Bilirubin Indirect 0.2 Bilirubin Aspartate Amino 901 H Transf (AST/SGO T) Alanine 539 H Aminotransferas e (ALT/SGPT) Alkaline 58 Phosphatase Total Protein 5.0 L Albumin 2.9 L Test 08/09/18 19:56 08/09/18 20:50 08/09/18 21:43 08/09/18 23:30 Bedside Glucose 496 *H 485 *H 451 *H 444 *H Test 08/10/18 00:07 08/10/18 00:19 08/10/18 00:24 08/10/18 01:43 Blood Gas Blood arterial Specimen Source Arterial Blood 08/09/2018 11:40 Date Drawn :57 PM Arterial Blood 7.485 H pH (Temp corrected ) Arterial Blood 27.0 L pCO2 (Temp correct) Arterial Blood 56.8 L pO2 (Temp corrected ) Arterial Blood 20.7 L HCO3 Arterial Blood -2.9 Base Excess Arterial Blood 95.0 Oxygen Saturati on Francois Test ACCEPTAB Arterial Blood Right Radial Gas Puncture Site Arterial 0.3 Blood Carboxyhe moglobin Arterial Blood 0.2 Methemoglobin Blood Gas A-a 565.6 H O2 Differential Oxyhemoglobin 94.5 Percent Blood Gas 33.0 Temperature Blood Gas 24.0 Respiration Rate Blood Gas 24 Actual Respiration Rat e Blood Gas VENT - AC Modality FiO2 90.0 Blood Gas Tidal 500.0 Volume Blood Gas Low 12.0 PEEP Setting Blood Gas JAZZY Notified Whom Blood Gas 08/09/2018 11:54 Notified Time :43 PM White Blood 21.5 H Count Red Blood Count 4.60 Hemoglobin 9.9 L Hematocrit 31.3 L Mean 68.0 L Corpuscular Volume Mean 21.5 L Corpuscular Hemoglobin Mean 31.6 L Corpuscular Hemoglobin Conc ent Red Cell 15.3 H Distribution Width Platelet Count 268 Mean Platelet 12.3 H Volume Immature 1.400 H Granulocytes % Neutrophils % 89.3 H Lymphocytes % 6.4 L Monocytes % 2.8 Eosinophils % 0.0 Basophils % 0.1 Nucleated Red 0.0 Blood Cells % Immature 0.290 H Granulocytes # Neutrophils # 19.2 H Lymphocytes # 1.4 Monocytes # 0.6 Eosinophils # 0.0 Basophils # 0.0 Nucleated Red 0.0 Blood Cells # Prothrombin 16.6 H Time Prothrombin 1.3 Time Ratio INR 1.33 International Normalized Rati o Activated 29.1 Partial Thrombo plast Time Fibrinogen 407.0 # Sodium Level 148 H Potassium Level 3.2 L Chloride Level 103 Carbon Dioxide 26 Level Anion Gap 19 #H Blood Urea 40 H Nitrogen Creatinine 1.87 H Est Glomerular Filtrat Rate mL/min Glucose Level 432 *H Calcium Level 7.7 L Phosphorus 1.6 L Level Magnesium Level 1.6 L Total Bilirubin 0.2 Direct 0.00 Bilirubin Indirect 0.2 Bilirubin Aspartate Amino 842 H Transf (AST/SGO T) Alanine 536 H Aminotransferas e (ALT/SGPT) Alkaline 51 Phosphatase Troponin I 168.000 *H Total Protein 5.2 L Albumin 2.9 L Globulin 2.30 Albumin/Globuli 1.26 n Ratio Amylase Level 437 #H Lipase 993 H Bedside Glucose 414 *H 376 H Test 08/10/18 02:44 08/10/18 03:58 08/10/18 04:38 08/10/18 05:50 Bedside Glucose 360 H 409 *H 308 H 275 H Test 08/10/18 06:00 08/10/18 06:07 1/24/19 06:44 08/10/18 08:01 White Blood 20.4 H Count Red Blood Count 4.53 Hemoglobin 9.8 L Hematocrit 29.9 L Mean 66.0 L Corpuscular Volume Mean 21.6 L Corpuscular Hemoglobin Mean 32.8 Corpuscular Hemoglobin Conc ent Red Cell 15.0 H Distribution Width Platelet Count 234 Mean Platelet 11.9 H Volume Immature 1.500 H Granulocytes % Neutrophils % 89.2 H Lymphocytes % 6.4 L Monocytes % 2.8 Eosinophils % 0.0 Basophils % 0.1 Nucleated Red 0.0 Blood Cells % Immature 0.310 H Granulocytes # Neutrophils # 18.2 H Lymphocytes # 1.3 Monocytes # 0.6 Eosinophils # 0.0 Basophils # 0.0 Nucleated Red 0.0 Blood Cells # Prothrombin 16.3 H Time Prothrombin 1.3 Time Ratio INR 1.30 International Normalized Rati o Activated 30.7 Partial Thrombo plast Time Fibrinogen 443.0 # Sodium Level 151 H Potassium Level 2.9 *L Chloride Level 103 Carbon Dioxide 33 H Level Anion Gap 15 H Blood Urea 42 H Nitrogen Creatinine 1.89 H Est Glomerular Filtrat Rate mL/min Glucose Level 254 #H Calcium Level 7.5 L Phosphorus 1.9 L Level Magnesium Level 2.4 Total Bilirubin 0.3 Direct 0.00 Bilirubin Indirect 0.3 Bilirubin Aspartate Amino 661 H Transf (AST/SGO T) Alanine 474 H Aminotransferas e (ALT/SGPT) Alkaline 50 Phosphatase Troponin I 156.000 *H Total Protein 5.2 L Albumin 2.8 L Globulin 2.40 Albumin/Globuli 1.16 n Ratio Amylase Level 835 #H Lipase 2551 H Blood Gas Blood arterial Specimen Source Arterial Blood 08/10/2018 5:30: Date Drawn 22 AM Arterial Blood 7.613 *H pH (Temp corrected ) Arterial Blood 25.2 L pCO2 (Temp correct) Arterial Blood 116.7 H pO2 (Temp corrected ) Arterial Blood 25.7 HCO3 Arterial Blood 3.7 H Base Excess Arterial Blood 98.5 Oxygen Saturati on Francois Test ACCEPTAB Arterial Blood Right Radial Gas Puncture Site Arterial 0.3 Blood Carboxyhe moglobin Arterial Blood 0.4 Methemoglobin Blood Gas A-a 580.5 H O2 Differential Oxyhemoglobin 97.8 Percent Blood Gas 33.0 Temperature Blood Gas 24.0 Respiration Rate Blood Gas 24 Actual Respiration Rat e Blood Gas VENT - AC Modality FiO2 100.0 Blood Gas Tidal 500.0 Volume Blood Gas Low 12.0 PEEP Setting Blood Gas KEIKO Chung RN Critical Value Read Back Blood Gas BL Notified Whom Blood Gas 08/10/2018 5:50: Notified Time 34 AM Bedside Glucose 262 H 251 H Test 08/10/18 09:02 08/10/18 10:06 Bedside Glucose 256 H 234 H Consultation Date/Type/Reason Admit Date/Time Aug 09, 2018 at 01:10 Date of Consultation: Aug 10, 2018 Type of Consult NEPHROLOGY Reason for Consultation Acute kidney injury. s/p Cardiac arrest Requesting Provider: JAYE ZHAO MD Hx of Present Illness 77-year-old female with hypertension, type 2 diabetes mellitus, hyperlipidemia, was brought in by paramedics after she reported multiple complaints. The patient had flu-like symptoms. her condition deteriorated in ED- she was intuabted and Resuscitated for cardiac arrest, started on Hypothermia protocol admitted to ICU, ON admission BUN/cr 41/1.23 which worsened to 43/2.06, K has been stable Pt has been making 30-40 cc/hr urine output Remains intuabted on hypothermia protocol in ICU pt has been on IV abx for septic shock and being followed by cardioloyg, ID and Pulmonary service Subjective hx not possible: pt non-verbal (due to inubated and sedated on ventilator ), pt critical status Past Medical History Medical History: diabetes, high cholesterol, hypertension Medications Current Medications Vancomycin HCl (Vanco Iv Per Pharmacy) VANCOMYCIN PER PHARMACY PER PROTOCOL XX ; Start 08/09/18 at 05:00 Pantoprazole (Protonix Iv) 40 mg DAILY@0600 IV Last administered on 08/09/18at 06:06; Admin Dose 40 MG; Start 08/09/18 at 06:00; Status Hold Vancomycin/Sodium Chloride 250 ml @ 125 mls/hr Q24H IVPB Last administered on 08/09/18at 16:31; Admin Dose 125 MLS/HR; Start 08/09/18 at 16:00 Norepinephrine 250 ml @ 1.875 mls/ hr TITRATE IV Last administered on 08/10/18at 06:17; Admin Dose 9.375 MLS/HR; Start 08/09/18 at 06:00 Propofol 100 ml @ 2.1 mls/hr PER PROTOCOL IV Last administered on 08/10/18at 07:45; Admin Dose 2.1 MLS/HR; Start 08/09/18 at 06:30 Vecuronium [place] 100 mg/ Dextrose 100 ml @ 4.2 mls/hr [id number] IV Last administered on 08/10/18at 06:06; Admin Dose 0 MLS/HR; Start 08/09/18 at 06:07 Acetaminophen (Tylenol Supp) 650 mg Q4H PRN CO TEMP > 37C; Start 08/09/18 at 06:30 Acetaminophen (Tylenol Liquid) 650 mg Q4H PRN PO TEMP > 37C; Start 08/09/18 at 06:30 Acetaminophen (Tylenol Liquid) 500 mg Q6H PO Last administered on 08/10/18at 06:22; Admin Dose 500 MG; Start 08/10/18 at 06:30; Stop 08/11/18 at 06:29 Meperidine HCl (Demerol) 12.5 mg Q4H PRN IV AGITATION; Start 08/09/18 at 06:30 Meperidine HCl (Demerol) 25 mg Q4H PRN IV MUSCLE SPASMS; Start 08/09/18 at 06:30 Eye Lubricant (Akwa Oint) 1 applic Q6 BOTH EYES Last administered on 08/10/18at 06:06; Admin Dose 1 APPLIC; Start 08/09/18 at 12:00 Eye Lubricant (Artificial Tears Oph) 2 drop Q6 BOTH EYES Last administered on 08/10/18at 06:06; Admin Dose 2 DROP; Start 08/09/18 at 12:00 Diagnostic Test (Pha) (Accu-Chek) 1 ea Q1H XX Last administered on 08/10/18at 10:42; Admin Dose 1 EA; Start 08/09/18 at 06:30 Insulin Human Regular 100 unit/ Sodium Chloride 100 ml @ 0 mls/hr PER PROTOCOL IV Last administered on 08/10/18at 10:49; Admin Dose 12 MLS/HR; Start 08/09/18 at 06:30 Miscellaneous Information (* Miscellaneous Pharmacy Order) Treatment of Hypoglycemia: 1.BG 51... Per protocol XX ; Start 08/09/18 at 06:30 Dextrose (D50w Syringe) 25 ml Q15M PRN IV DECREASED GLUCOSE; Start 08/09/18 at 06:30 Dextrose (D50w Syringe) 50 ml Q15M PRN IV DECREASED GLUCOSE; Start 08/09/18 at 06:30 Vasopressin 60 unit/Dextrose 60 ml @ 0 mls/hr Q12H IV Last administered on 08/09/18at 16:05; Admin Dose 2.4 MLS/HR; Start 08/09/18 at 11:00 Piperacillin Sod/ Tazobactam Sod 50 ml @ 100 mls/hr Q6 IVPB Last administered on 08/10/18at 06:09; Admin Dose 100 MLS/HR; Start 08/09/18 at 11:00 Aspirin (Aspirin) 81 mg DAILY PO ; Start 08/10/18 at 09:00 Atorvastatin Calcium (Lipitor) 20 mg HS PO Last administered on 08/09/18at 20:39; Admin Dose 20 MG; Start 08/09/18 at 21:00 Pantoprazole 80 mg/Sodium Chloride 100 ml @ 10 mls/hr Q10H IV Last admin istered on 08/10/18at 10:50; Admin Dose 10 MLS/HR; Start 08/09/18 at 16:00 Phenylephrine HCl 80 mg/Dextrose 250 ml @ 18.75 mls/ hr TITRATE IV Last administered on 08/09/18at 16:08; Admin Dose 37.5 MLS/HR; Start 08/09/18 at 16:00 Potassium Chloride 100 ml @ 50 mls/hr Q2H IVPB Last administered on 08/10/18at 10:19; Admin Dose 50 MLS/HR; Start 08/10/18 at 08:00; Stop 08/10/18 at 11:59 Ondansetron HCl (Zofran Inj) 4 mg Q4H PRN IV nausea; Start 08/10/18 at 09:30 Allergies: Coded Allergies: No Known Allergy (Unverified , 08/08/18) Past Surgical History Past Surgical Hx: no surgical history Family History Significant Family History: other (No family h/o CKD/CAD/Stroke) Social History Alcohol Use: none Smoking Status: Never smoker Drug Use: none Exam/Review of Systems Vital Signs Vitals Vital Signs Date Temp Pulse Resp B/P (MAP) Pulse Ox O2 O2 Flow FiO2 Time Delivery Rate 08/10/18 91.2 75 18 108/62 100 10:00 (77) 08/10/18 80 10:00 08/09/18 Mechanical 18:00 Ventilator 08/09/18 13.0 02:34 Intake and Output 08/09/18 08/09/18 08/10/18 1515:00 23:00 07:00 IntakeIntake Total 2450.8 ml 1886.755 ml 1538.625 ml OutputOutput Total 28 ml 204 ml 374 ml BalanceBalance 2422.8 ml 1682.755 ml 1164.625 ml Exam Constitutional: non-verbal, distress (moderate distress ) ENMT: intubated, other (ET tube in place ) Neck: supple, jvd Respiratory: congested cough, crackles/rales, diminished breath sounds Cardiovascular: regular rate and rhythm, nl pulses Gastrointestinal: soft, non-tender Musculoskeletal: swelling Extremities: normal pulses, pitting pedal edema, other (Telles catheter ) Neurological: other (sedated intubated onventilator ) Lymph: nl lymph nodes Medications Medications Current Medications Vancomycin HCl (Vanco Iv Per Pharmacy) VANCOMYCIN PER PHARMACY PER PROTOCOL XX ; Start 08/09/18 at 05:00 Pantoprazole (Protonix Iv) 40 mg DAILY@0600 IV Last administered on 08/09/18at 06:06; Admin Dose 40 MG; Start 08/09/18 at 06:00; Status Hold Vancomycin/Sodium Chloride 250 ml @ 125 mls/hr Q24H IVPB Last administered on 08/09/18at 16:31; Admin Dose 125 MLS/HR; Start 08/09/18 at 16:00 Norepinephrine 250 ml @ 1.875 mls/ hr TITRATE IV Last administered on 08/10/18at 06:17; Admin Dose 9.375 MLS/HR; Start 08/09/18 at 06:00 Propofol 100 ml @ 2.1 mls/hr PER PROTOCOL IV Last administered on 08/10/18at 07:45; Admin Dose 2.1 MLS/HR; Start 08/09/18 at 06:30 Vecuronium [place] 100 mg/ Dextrose 100 ml @ 4.2 mls/hr [id number] IV Last administered on 08/10/18at 06:06; Admin Dose 0 MLS/HR; Start 08/09/18 at 06:07 Acetaminophen (Tylenol Supp) 650 mg Q4H PRN CO TEMP > 37C; Start 08/09/18 at 06:30 Acetaminophen (Tylenol Liquid) 650 mg Q4H PRN PO TEMP > 37C; Start 08/09/18 at 06:30 Acetaminophen (Tylenol Liquid) 500 mg Q6H PO Last administered on 08/10/18at 06:22; Admin Dose 500 MG; Start 08/10/18 at 06:30; Stop 08/11/18 at 06:29 Meperidine HCl (Demerol) 12.5 mg Q4H PRN IV AGITATION; Start 08/09/18 at 06:30 Meperidine HCl (Demerol) 25 mg Q4H PRN IV MUSCLE SPASMS; Start 08/09/18 at 06:30 Eye Lubricant (Akwa Oint) 1 applic Q6 BOTH EYES Last administered on 08/10/18at 06:06; Admin Dose 1 APPLIC; Start 08/09/18 at 12:00 Eye Lubricant (Artificial Tears Oph) 2 drop Q6 BOTH EYES Last administered on 08/10/18at 06:06; Admin Dose 2 DROP; Start 08/09/18 at 12:00 Diagnostic Test (Pha) (Accu-Chek) 1 ea Q1H XX Last administered on 08/10/18at 10:42; Admin Dose 1 EA; Start 08/09/18 at 06:30 Insulin Human Regular 100 unit/ Sodium Chloride 100 ml @ 0 mls/hr PER PROTOCOL IV Last administered on 08/10/18at 10:49; Admin Dose 12 MLS/HR; Start 08/09/18 at 06:30 Miscellaneous Information (* Miscellaneous Pharmacy Order) Treatment of Hypoglycemia: 1.BG 51... Per protocol XX ; Start 08/09/18 at 06:30 Dextrose (D50w Syringe) 25 ml Q15M PRN IV DECREASED GLUCOSE; Start 08/09/18 at 06:30 Dextrose (D50w Syringe) 50 ml Q15M PRN IV DECREASED GLUCOSE; Start 08/09/18 at 06:30 Vasopressin 60 unit/Dextrose 60 ml @ 0 mls/hr Q12H IV Last administered on 08/09/18at 16:05; Admin Dose 2.4 MLS/HR; Start 08/09/18 at 11:00 Piperacillin Sod/ Tazobactam Sod 50 ml @ 100 mls/hr Q6 IVPB Last administered on 08/10/18at 06:09; Admin Dose 100 MLS/HR; Start 08/09/18 at 11:00 Aspirin (Aspirin) 81 mg DAILY PO ; Start 08/10/18 at 09:00 Atorvastatin Calcium (Lipitor) 20 mg HS PO Last administered on 08/09/18at 20:39; Admin Dose 20 MG; Start 08/09/18 at 21:00 Pantoprazole 80 mg/Sodium Chloride 100 ml @ 10 mls/hr Q10H IV Last a dministered on 08/10/18at 10:50; Admin Dose 10 MLS/HR; Start 08/09/18 at 16:00 Phenylephrine HCl 80 mg/Dextrose 250 ml @ 18.75 mls/ hr TITRATE IV Last administered on 08/09/18at 16:08; Admin Dose 37.5 MLS/HR; Start 08/09/18 at 16:00 Potassium Chloride 100 ml @ 50 mls/hr Q2H IVPB Last administered on 08/10/18at 10:19; Admin Dose 50 MLS/HR; Start 08/10/18 at 08:00; Stop 08/10/18 at 11:59 Ondansetron HCl (Zofran Inj) 4 mg Q4H PRN IV nausea; Start 08/10/18 at 09:30 SARA WYNN MD Aug 10, 2018 11:17
--- NOTE | 2018-08-10 12:50 | NUR ---
DR MAYBERRY AT BEDSIDE AND HAD DETAILED TALK WITH PT'S FAMILY ABOUT CURRENT STATUS AND PROGNOSIS
--- NOTE | 2018-08-10 14:40 | CONS ---
Assessment/Plan Assessment/Plan Hospital Course (Demo Recall) Patient remains intubated on pressors Protonix insulin drips. She looks comfortable. WBC 18.9 H&H 9.2 and 28.3 platelets 224 neutrophils 89.1 BUN 41 creatinine 1.92 Microbiology: All cultures negative Chest x-ray this morning revealed right greater than left bilateral interstitial opacities. I aeration mildly improved when compared to the prior examination Indwelling's: Endotracheal tube, NG tube, Telles catheter, right femoral triple- lumen catheter Antimicrobials: Vancomycin, Zosyn Physical examination: Obese ill-appearing elderly woman who is unresponsive and comfortable on vent. Head atraumatic normocephalic sclera nonicteric. Neck is supple. Chest rise symmetrical, breath sounds diminished bases. Heart: S1-S2. Abdomen soft, bowel sounds hypoactive. Extremities cyanotic with trace edema Assessment: 1. Severe sepsis with shock, possibly cardiogenic 2. Status post cardiopulmonary arrest 3. Acute respiratory failure, intubated 4. Pneumonia, possibly aspirated 5. Encephalopathy, rule out anoxic brain injury 6. Diabetes 7. Acute renal insufficiency Plan: Patient remains hemodynamically unstable, she is on hypothermia protocol, we will send sputum culture, continue antibiotics Consultation Date/Type/Reason Admit Date/Time Aug 09, 2018 at 01:10 Initial Consult Date 08/10/18 Type of Consult id Requesting Provider: JAYE ZHAO MD Date/Time of Note DATE: 08/10/18 TIME: 14:40 Exam/Review of Systems Exam Vitals Vital Signs Date Temp Pulse Resp B/P (MAP) Pulse Ox O2 O2 Flow FiO2 Time Delivery Rate 08/10/18 94.0 86 18 104/57 100 14:00 (73) 08/10/18 100 12:10 08/09/18 Mechanical 18:00 Ventilator 08/09/18 13.0 02:34 Intake and Output 08/09/18 08/09/18 08/10/18 1515:00 23:00 07:00 IntakeIntake Total 2450.8 ml 1886.755 ml 1538.625 ml OutputOutput Total 28 ml 204 ml 374 ml BalanceBalance 2422.8 ml 1682.755 ml 1164.625 ml Results Result Diagram: 08/10/18 1149 08/10/18 1149 Results 24hrs Laboratory Tests Test 08/09/18 15:50 08/09/18 16:46 08/09/18 17:35 08/09/18 18:07 Bedside Glucose 488 *H 495 *H 526 *H White Blood 25.1 H Count Red Blood Count 4.62 Hemoglobin 9.9 L Hematocrit 32.2 L Mean 69.7 L Corpuscular Volume Mean 21.4 L Corpuscular Hemoglobin Mean 30.7 L Corpuscular Hemoglobin Conc ent Red Cell 15.6 H Distribution Width Platelet Count 272 # Mean Platelet 12.6 H Volume Immature 2.300 H Granulocytes % Neutrophils % 87.5 H Segmented 88 H Neutrophils % (Manual) Band 2 Neutrophils % (Manual) Lymphocytes % 7.2 L Lymphocytes % 9 L (Manual) Monocytes % 2.8 Monocytes % 1 (Manual) Eosinophils % 0.0 Basophils % 0.2 Nucleated Red 0.2 H Blood Cells % Immature 0.570 H Granulocytes # Neutrophils # 22.0 H Neutrophils # 22.2 H (Manual) Band 0.5 Neutrophils # Lymphocytes 2.2 (Manual) Lymphocytes # 1.8 Monocytes # 0.7 Monocytes # 0.2 L (Manual) Eosinophils # 0.0 Basophils # 0.1 Nucleated Red 0.0 Blood Cells # Giant Platelets 2 H Platelet @See below Morphology Comment Poikilocytosis 2+ Anisocytosis 2+ Microcytosis 2+ Prothrombin 17.1 H Time Prothrombin 1.3 Time Ratio INR 1.38 International Normalized Rati o Activated 33.2 Partial Thrombo plast Time Fibrinogen 432.0 # Blood Gas Blood Specimen arterial Source Arterial Blood 08/09/2018 6:00 Date Drawn :16 PM Arterial Blood 7.356 pH (Temp corrected ) Arterial Blood 25.2 L pCO2 (Temp correct) Arterial Blood 120.2 H pO2 (Temp corrected ) Arterial Blood 14.4 L HCO3 Arterial Blood -10.7 L Base Excess Arterial Blood 98.2 Oxygen Saturati on Francois Test N/A Arterial Blood LB Gas Puncture Site Arterial 0.2 Blood Carboxyhe moglobin Arterial Blood 0.2 Methemoglobin Blood Gas A-a 576.7 H O2 Differential Oxyhemoglobin 97.8 Percent Blood Gas 33.2 Temperature Blood Gas 24.0 Respiration Rate Blood Gas 24 Actual Respiration Rat e Blood Gas VENT - AC Modality FiO2 100.0 Blood Gas Tidal 500.0 Volume Blood Gas Low 12.0 PEEP Setting Blood Gas [place] Notified Whom Blood Gas 08/09/2018 6:11 Notified Time :29 PM Sodium Level 149 H Potassium Level 3.4 L Chloride Level 104 Carbon Dioxide 18 L Level Anion Gap 27 H Blood Urea 39 H Nitrogen Creatinine 1.75 H Est Glomerular Filtrat Rate mL/min Glucose Level 566 *H Calcium Level 7.5 L Total Bilirubin 0.2 Direct 0.00 # Bilirubin Indirect 0.2 Bilirubin Aspartate Amino 901 H Transf (AST/SGO T) Alanine 539 H Aminotransferas e (ALT/SGPT) Alkaline 58 Phosphatase Total Protein 5.0 L Albumin 2.9 L Test 08/09/18 18:49 08/09/18 19:56 08/09/18 20:50 08/09/18 21:43 Bedside Glucose 501 *H 496 *H 485 *H 451 *H Test 08/09/18 23:30 08/10/18 00:07 08/10/18 00:19 08/10/18 00:24 Bedside Glucose 444 *H 414 *H Blood Gas Blood arterial Specimen Source Arterial Blood 08/09/2018 11:40 Date Drawn :57 PM Arterial Blood 7.485 H pH (Temp corrected ) Arterial Blood 27.0 L pCO2 (Temp correct) Arterial Blood 56.8 L pO2 (Temp corrected ) Arterial Blood 20.7 L HCO3 Arterial Blood -2.9 Base Excess Arterial Blood 95.0 Oxygen Saturati on Francois Test ACCEPTAB Arterial Blood Right Radial Gas Puncture Site Arterial 0.3 Blood Carboxyhe moglobin Arterial Blood 0.2 Methemoglobin Blood Gas A-a 565.6 H O2 Differential Oxyhemoglobin 94.5 Percent Blood Gas 33.0 Temperature Blood Gas 24.0 Respiration Rate Blood Gas 24 Actual Respiration Rat e Blood Gas VENT - AC Modality FiO2 90.0 Blood Gas Tidal 500.0 Volume Blood Gas Low 12.0 PEEP Setting Blood Gas [place] Notified Whom Blood Gas 08/09/2018 11:54 Notified Time :43 PM White Blood 21.5 H Count Red Blood Count 4.60 Hemoglobin 9.9 L Hematocrit 31.3 L Mean 68.0 L Corpuscular Volume Mean 21.5 L Corpuscular Hemoglobin Mean 31.6 L Corpuscular Hemoglobin Conc ent Red Cell 15.3 H Distribution Width Platelet Count 268 Mean Platelet 12.3 H Volume Immature 1.400 H Granulocytes % Neutrophils % 89.3 H Lymphocytes % 6.4 L Monocytes % 2.8 Eosinophils % 0.0 Basophils % 0.1 Nucleated Red 0.0 Blood Cells % Immature 0.290 H Granulocytes # Neutrophils # 19.2 H Lymphocytes # 1.4 Monocytes # 0.6 Eosinophils # 0.0 Basophils # 0.0 Nucleated Red 0.0 Blood Cells # Prothrombin 16.6 H Time Prothrombin 1.3 Time Ratio INR 1.33 International Normalized Rati o Activated 29.1 Partial Thrombo plast Time Fibrinogen 407.0 # Sodium Level 148 H Potassium Level 3.2 L Chloride Level 103 Carbon Dioxide 26 Level Anion Gap 19 #H Blood Urea 40 H Nitrogen Creatinine 1.87 H Est Glomerular Filtrat Rate mL/min Glucose Level 432 *H Calcium Level 7.7 L Phosphorus 1.6 L Level Magnesium Level 1.6 L Total Bilirubin 0.2 Direct 0.00 Bilirubin Indirect 0.2 Bilirubin Aspartate Amino 842 H Transf (AST/SGO T) Alanine 536 H Aminotransferas e (ALT/SGPT) Alkaline 51 Phosphatase Troponin I 168.000 *H Total Protein 5.2 L Albumin 2.9 L Globulin 2.30 Albumin/Globuli 1.26 n Ratio Amylase Level 437 #H Lipase 993 H Test 08/10/18 01:43 08/10/18 02:44 08/10/18 03:58 08/10/18 04:38 Bedside Glucose 376 H 360 H 409 *H 308 H Test 08/10/18 05:50 08/10/18 06:00 08/10/18 06:07 08/10/18 06:44 Bedside Glucose 275 H 262 H White Blood 20.4 H Count Red Blood Count 4.53 Hemoglobin 9.8 L Hematocrit 29.9 L Mean 66.0 L Corpuscular Volume Mean 21.6 L Corpuscular Hemoglobin Mean 32.8 Corpuscular Hemoglobin Conc ent Red Cell 15.0 H Distribution Width Platelet Count 234 Mean Platelet 11.9 H Volume Immature 1.500 H Granulocytes % Neutrophils % 89.2 H Lymphocytes % 6.4 L Monocytes % 2.8 Eosinophils % 0.0 Basophils % 0.1 Nucleated Red 0.0 Blood Cells % Immature 0.310 H Granulocytes # Neutrophils # 18.2 H Lymphocytes # 1.3 Monocytes # 0.6 Eosinophils # 0.0 Basophils # 0.0 Nucleated Red 0.0 Blood Cells # Prothrombin 16.3 H Time Prothrombin 1.3 Time Ratio INR 1.30 International Normalized Rati o Activated 30.7 Partial Thrombo plast Time Fibrinogen 443.0 # Sodium Level 151 H Potassium Level 2.9 *L Chloride Level 103 Carbon Dioxide 33 H Level Anion Gap 15 H Blood Urea 42 H Nitrogen Creatinine 1.89 H Est Glomerular Filtrat Rate mL/min Glucose Level 254 #H Calcium Level 7.5 L Phosphorus 1.9 L Level Magnesium Level 2.4 Total Bilirubin 0.3 Direct 0.00 Bilirubin Indirect 0.3 Bilirubin Aspartate Amino 661 H Transf (AST/SGO T) Alanine 474 H Aminotransferas e (ALT/SGPT) Alkaline 50 Phosphatase Troponin I 156.000 *H Total Protein 5.2 L Albumin 2.8 L Globulin 2.40 Albumin/Globuli 1.16 n Ratio Amylase Level 835 #H Lipase 2551 H Blood Gas Blood arterial Specimen Source Arterial Blood 08/10/2018 5:30: Date Drawn 22 AM Arterial Blood 7.613 *H pH (Temp corrected ) Arterial Blood 25.2 L pCO2 (Temp correct) Arterial Blood 116.7 H pO2 (Temp corrected ) Arterial Blood 25.7 HCO3 Arterial Blood 3.7 H Base Excess Arterial Blood 98.5 Oxygen Saturati on Francois Test ACCEPTAB Arterial Blood Right Radial Gas Puncture Site Arterial 0.3 Blood Carboxyhe moglobin Arterial Blood 0.4 Methemoglobin Blood Gas A-a 580.5 H O2 Differential Oxyhemoglobin 97.8 Percent Blood Gas 33.0 Temperature Blood Gas 24.0 Respiration Rate Blood Gas 24 Actual Respiration Rat e Blood Gas VENT - AC Modality FiO2 100.0 Blood Gas Tidal 500.0 Volume Blood Gas Low 12.0 PEEP Setting Blood Gas KEIKO R RN Critical Value Read Back Blood Gas [place] Notified Whom Blood Gas 08/10/2018 5:50: Notified Time 34 AM Test 08/10/18 08:01 08/10/18 09:02 08/10/18 10:06 08/10/18 11:18 Bedside Glucose 251 H 256 H 234 H 205 Test 08/10/18 11:49 08/10/18 12:01 08/10/18 12:07 08/10/18 12:29 White Blood 18.9 H Count Red Blood Count 4.25 Hemoglobin 9.2 L Hematocrit 28.3 L Mean 66.6 L Corpuscular Volume Mean 21.6 L Corpuscular Hemoglobin Mean 32.5 Corpuscular Hemoglobin Conc ent Red Cell 14.9 H Distribution Width Platelet Count 224 Mean Platelet 11.8 H Volume Immature 2.400 H Granulocytes % Neutrophils % 89.1 H Lymphocytes % 6.4 L Monocytes % 1.9 Eosinophils % 0.0 Basophils % 0.2 Nucleated Red 0.0 Blood Cells % Immature 0.460 H Granulocytes # Neutrophils # 16.9 H Lymphocytes # 1.2 Monocytes # 0.4 Eosinophils # 0.0 Basophils # 0.0 Nucleated Red 0.0 Blood Cells # Prothrombin 16.1 H Time Prothrombin 1.3 Time Ratio INR 1.28 International Normalized Rati o Activated 29.5 Partial Thrombo plast Time Fibrinogen 388.0 # Sodium Level 149 H Potassium Level 4.0 Chloride Level 105 Carbon Dioxide 33 H Level Anion Gap 11 Blood Urea 41 H Nitrogen Creatinine 1.92 H Est Glomerular Filtrat Rate mL/min Glucose Level 137 # Calcium Level 7.1 L Phosphorus 2.5 Level Magnesium Level 2.1 Total Bilirubin 0.3 Direct 0.00 Bilirubin Indirect 0.3 Bilirubin Aspartate Amino 549 H Transf (AST/SGO T) Alanine 383 H Aminotransferas e (ALT/SGPT) Alkaline 42 Phosphatase Troponin I 117.000 *H Total Protein 4.7 L Albumin 2.5 L Globulin 2.20 Albumin/Globuli 1.13 n Ratio Amylase Level 702 #H Lipase 1333 H Bedside Glucose 186 124 Blood Gas Blood arterial Specimen Source Arterial Blood 08/10/2018 11:56 Date Drawn :10 AM Arterial Blood 7.584 *H pH (Temp corrected ) Arterial Blood 27.7 L pCO2 (Temp correct) Arterial Blood 42.2 *L pO2 (Temp corrected ) Arterial Blood 26.3 H HCO3 Arterial Blood 3.9 H Base Excess Arterial Blood 89.4 L Oxygen Saturati on Francois Test ACCEPTAB Arterial Blood Right Radial Gas Puncture Site Arterial 0.3 Blood Carboxyhe moglobin Arterial Blood 0.3 Methemoglobin Blood Gas A-a 432.6 H O2 Differential Oxyhemoglobin 88.9 L Percent Blood Gas 33.7 Temperature Blood Gas 18.0 Respiration Rate Blood Gas 18 Actual Respiration Rat e Blood Gas VENT - AC Modality FiO2 70.0 Blood Gas Tidal 500.0 Volume Blood Gas Low 12.0 PEEP Setting Blood Gas REBECA HAILE Critical Value Read Back Blood Gas [place] Notified Whom Blood Gas 08/10/2018 12:07 Notified Time :14 PM Test 1/24/19 13:56 Bedside Glucose 141 ISMAIL-ZADE,NERA ROTARY CUTTER FEEDER Aug 10, 2018 14:40
--- NOTE | 2018-08-10 16:15 | NUR ---
SS NOTE: CONSULT MET WITH PT'S DTR, TRINIDAD AND XIOMY ALEXANDER AT PT'S BEDSIDE. PT CURRENTLY INTUBATED AND ON HYPOTHERMIA PROTOCOL S/P CARDIOPULMONARY ARREST IN ED. PER FAMILY, PT LIVES AT HOME AND HAS BEEN INDEPENDENT WITH MOST ADL'S. DTRTRINIDAD AND SON, JAJA ARE PT'S SPOKESPERSONS. FAMILY REPORTED THAT ALL THE DOCTORS HAVE MET WITH THEM AND UPDATED THEM ON PT'S CONDITION AND THEY UNDERSTAND THAT MORE OF PT'S CONDITION AND TEST RESULTS WILL BE DISCUSSED AFTER PT IS OFF THE HYPOTHERMIA PROTOCOL. PT REMAINS FULL CODE AT THIS TIME. NO AHCD PER FAMILY. SW WILL CONTINUE TO F/U WITH PT AND FAMILY FOR INFO AND SUPPORT.
--- NOTE | 2018-08-10 18:40 | NUR ---
NURSE NOTE: PT ON HYPOTHERMIA PROTOCOL, REWARMING STARTED AT 0840; LATEST ABG WNL SEE VENT CHANGES THROUGHOUT THE DAY; LEVOPHED RESTARTED IN THE AFTERNOON AND CURRENTLY RUNNING AT 18 MCG/MIN; PROPOFOL GTT TITRATED FOR RASS -4; VEC OFF THIS MORNING DUE TO 0/4 TWITCHES, AROUND 1500 PT HAD 1/4, PER PROTOCOL DO NOT RESTART VEC UNLESS TOF 4/4; PT HAS A LOT OF EDEMA AROUND THE EYES, MOUTH AND TONGUE, RT ADJUSTED ETT AND OGT FREQUENTLY TO AVOID SKIN BREAKDOWN; LEFT HAND EXTRAVASATION DRESSED WITH XEROFORM AND KERLIX, WOUND CARE CONSULT PLACED AND FAMILY NOTIFIED; URINE OUTPUT 60ML/HR MOST OF THE DAY THEN STARTED TO DROP OFF TO 15-30 ML/HR THIS EVENING.
--- NOTE | 2018-08-10 20:01 | RADRPT ---
Vent Rate: 80 bpm RR Interval: 0 msec NV Interval: 118 msec QRS Duration: 66 msec QT Interval: 454 msec QTC Interval: 523 msec P-R-T [place]: 64 - -10 - 155 degrees Normal sinus rhythm Cannot rule out Inferior infarct , age undetermined Anterior infarct , age undetermined Prolonged QT Abnormal ECG Electronically Signed By: Mane Valenzuela [id number]
[2018-08-10] MEDS: ATORVASTATIN 20 MG TAB PO SCH (20:46)
[2018-08-11] VITALS (103 sets, daily range): BP systolic 82–172; BP diastolic 42–156; PULSE 81–113; RESP 14–39
[2018-08-11] MEDS: ACCU-CHEK XX SCH ×8 (00:09→07:50)
--- NOTE | 2018-08-11 00:53 | NUR ---
DR. OQUENDO MADE AWARE ABOUT ABG RESULT, NO CHANGES ON VENT SETTINGS AT THIS TIME.
[2018-08-11] MEDS: PROPOFOL 100 ML IV SCH ×2 (02:50→18:54)
--- NOTE | 2018-08-11 02:58 | NUR ---
patient achieved normothermia at 0156 am.
[2018-08-11] MEDS: VECURONIUM 100 MG in DEXTROSE 5% 100 ML IV SCH (04:13)
--- NOTE | 2018-08-11 04:25 | NUR ---
REPORT RECEIVED TO OUTGOING RN. CARE ASSUMED, EMAR/ORDER HX. REVIEWED.PT.SEDATED ON PROPOFOL DRIP,VS. STABLE 0N 8 MCG/MIN. LEVOPHED DRIPTELEMETRY SR. W/O ECTOPY, URINE OUTPUT ADEQUATE,REMAINS UNRESPONSIVE TO PAINFUL STIMULI. WILL CONTINUE TOMONITOR
--- NOTE | 2018-08-11 04:25 | NUR ---
REPORT GIVEN TO LAZARA ESPINOZA
[2018-08-11] MEDS: ARTIFICIAL TEARS 15 ML OPH BOTH EYES SCH ×4 (05:51→23:33)
[2018-08-11] MEDS: PIPER-TAZO 2.25 GM/NS 50 ML IVPB SCH ×4 (05:52→23:33)
[2018-08-11] MEDS: OCULAR LUBRICANT 3.5 GM OPH OINT BOTH EYES SCH ×4 (05:52→23:33)
[2018-08-11] MEDS ORDERED: VANCOMYCIN 750 MG (PMX) 250 ML IVPB SCH ×2 (06:00→09:00)
[2018-08-11] MEDS: PANTOPRAZOLE IV 80 MG in SOD CHLORIDE 0.9% 100 ML IV SCH (06:55)
[2018-08-11] MEDS: NORepinephrine 8MG/250 ML (PMX 250 ML IV SCH (08:15)
--- NOTE | 2018-08-11 08:27 | NUR ---
VANCOMYCIN PER PHARMACY NOTE 08/11 RANDOM VANC = 13.9 SCR INCREASED TO 2.28 Comments/Plan: OK TO GIVE VANCOMYCIN 750MG DOSE TODAY. NEW VANCOMCYIN SHEDULE WILL BE Q48 HOURS FOR NOW. PHARMACY WILL FOLLOW. THANK YOU.
--- NOTE | 2018-08-11 09:09 | CONS ---
Assessment/Plan Assessment/Plan Assessment/Plan (Daily) 1.. Non Oliguric Acute kidney injury due to ATN 2. acute hypoxemic respiratory failure intubated on ventilator 3. severe sepsis due to possible aspiration PNA 4. S/p Cardiac Arrest - currently on hypothermia protocol 5. Encephalopathy r/o anoxic damage from cardiac arrest 6. H/o HTN 7. H/o DM II 8. h/o HL Plan: pt remains inubted, BUN/cr 45/2.28, Urine output 1 liter in last 24 hr IV abx for Severe sepsis, Renally dose all abx and Monitor electrolytes renal US showed normal size kidneys and mild left hydronephrosis K and magnesium replacement will follow up Consultation Date/Type/Reason Admit Date/Time Aug 09, 2018 at 01:10 Initial Consult Date 08/10/18 Type of Consult NEPHROLOGY Requesting Provider: JAYE ZHAO MD Date/Time of Note DATE: 08/11/18 TIME: 09:08 24 HR Interval Summary Free Text/Dictation pt remains inubted, BUN/cr 45/2.28, Urine output 1 liter in last 24 hr Exam/Review of Systems Exam Vitals Vital Signs Date Temp Pulse Resp B/P (MAP) Pulse Ox O2 O2 Flow FiO2 Time Delivery Rate 08/11/18 108 34 128/58 94 Mechanical 07:00 (81) Ventilator 08/11/18 90 05:49 08/11/18 99.0 04:00 08/09/18 13.0 02:34 Intake and Output 08/10/18 08/10/18 08/11/18 1515:00 23:00 07:00 IntakeIntake Total 1525.750 ml 415.450 ml 351.55 ml OutputOutput Total 316 ml 206 ml 499 ml BalanceBalance 1209.750 ml 209.450 ml -147.45 ml PHYSICAL EXAM: Constitutional: non-verbal, distress (moderate distress ) ENMT: intubated, other (ET tube in place ) Neck: supple, jvd Respiratory: congested cough, crackles/rales, diminished breath sounds Cardiovascular: regular rate and rhythm, nl pulses Gastrointestinal: soft, non-tender Musculoskeletal: swelling Extremities: normal pulses, pitting pedal edema, other (Telles catheter ) Neurological: other (sedated intubated onventilator ) Lymph: nl lymph nodes Results Result Diagram: 08/10/18 1814 08/11/18 0430 Results 24hrs Laboratory Tests Test 08/10/18 10:06 08/10/18 11:18 08/10/18 11:49 08/10/18 12:01 Bedside Glucose 234 H 205 186 White Blood 18.9 H Count Red Blood Count 4.25 Hemoglobin 9.2 L Hematocrit 28.3 L Mean 66.6 L Corpuscular Volume Mean 21.6 L Corpuscular Hemoglobin Mean 32.5 Corpuscular Hemoglobin Conc ent Red Cell 14.9 H Distribution Width Platelet Count 224 Mean Platelet 11.8 H Volume Immature 2.400 H Granulocytes % Neutrophils % 89.1 H Lymphocytes % 6.4 L Monocytes % 1.9 Eosinophils % 0.0 Basophils % 0.2 Nucleated Red 0.0 Blood Cells % Immature 0.460 H Granulocytes # Neutrophils # 16.9 H Lymphocytes # 1.2 Monocytes # 0.4 Eosinophils # 0.0 Basophils # 0.0 Nucleated Red 0.0 Blood Cells # Prothrombin 16.1 H Time Prothrombin 1.3 Time Ratio INR 1.28 International Normalized Rati o Activated 29.5 Partial Thrombo plast Time Fibrinogen 388.0 # Sodium Level 149 H Potassium Level 4.0 Chloride Level 105 Carbon Dioxide 33 H Level Anion Gap 11 Blood Urea 41 H Nitrogen Creatinine 1.92 H Est Glomerular Filtrat Rate mL/min Glucose Level 137 # Calcium Level 7.1 L Phosphorus 2.5 Level Magnesium Level 2.1 Total Bilirubin 0.3 Direct 0.00 Bilirubin Indirect 0.3 Bilirubin Aspartate Amino 549 H Transf (AST/SGO T) Alanine 383 H Aminotransferas e (ALT/SGPT) Alkaline 42 Phosphatase Troponin I 117.000 *H Total Protein 4.7 L Albumin 2.5 L Globulin 2.20 Albumin/Globuli 1.13 n Ratio Amylase Level 702 #H Lipase 1333 H Test 08/10/18 12:07 08/10/18 12:29 08/10/18 13:56 08/10/18 15:21 Blood Gas Blood arterial Specimen Source Arterial Blood 08/10/2018 11:56 Date Drawn :10 AM Arterial Blood 7.584 *H pH (Temp corrected ) Arterial Blood 27.7 L pCO2 (Temp correct) Arterial Blood 42.2 *L pO2 (Temp corrected ) Arterial Blood 26.3 H HCO3 Arterial Blood 3.9 H Base Excess Arterial Blood 89.4 L Oxygen Saturati on Francois Test ACCEPTAB Arterial Blood Right Radial Gas Puncture Site Arterial 0.3 Blood Carboxyhe moglobin Arterial Blood 0.3 Methemoglobin Blood Gas A-a 432.6 H O2 Differential Oxyhemoglobin 88.9 L Percent Blood Gas 33.7 Temperature Blood Gas 18.0 Respiration Rate Blood Gas 18 Actual Respiration Rat e Blood Gas VENT - AC Modality FiO2 70.0 Blood Gas Tidal 500.0 Volume Blood Gas Low 12.0 PEEP Setting Blood Gas REBECA HAILE Critical Value Read Back Blood Gas TM Notified Whom Blood Gas 08/10/2018 12:07 Notified Time :14 PM Bedside Glucose 124 141 107 Test 08/10/18 16:19 08/10/18 17:11 08/10/18 17:48 08/10/18 18:00 Bedside Glucose 92 78 82 Blood Gas Blood Specimen arterial Source Arterial Blood 08/10/2018 6:10 Date Drawn :41 PM Arterial Blood 7.503 H pH (Temp corrected ) Arterial Blood 38.1 pCO2 (Temp correct) Arterial Blood 88.5 pO2 (Temp corrected ) Arterial Blood 29.2 H HCO3 Arterial Blood 5.8 H Base Excess Arterial Blood 96.6 Oxygen Saturati on Francois Test ACCEPTAB Arterial Blood Right Radial Gas Puncture Site Arterial 0.3 Blood Carboxyhe moglobin Arterial Blood 0.3 Methemoglobin Blood Gas A-a 514.2 H O2 Differential Oxyhemoglobin 96.0 Percent Blood Gas 37.0 Temperature Blood Gas 14.0 Respiration Rate Blood Gas 14 Actual Respiration Rat e Blood Gas VENT - AC Modality FiO2 90.0 Blood Gas Tidal 500.0 Volume Blood Gas Low 12.0 PEEP Setting Blood Gas MDA Notified Whom Blood Gas 08/10/2018 6:14 Notified Time :43 PM Test 08/10/18 18:14 08/10/18 18:20 08/10/18 18:39 08/10/18 19:02 White Blood 28.4 #H Count Red Blood Count 4.52 Hemoglobin 9.7 L Hematocrit 30.0 L Mean 66.4 L Corpuscular Volume Mean 21.5 L Corpuscular Hemoglobin Mean 32.3 Corpuscular Hemoglobin Conc ent Red Cell 15.1 H Distribution Width Platelet Count 244 Mean Platelet 11.4 H Volume Immature 4.100 H Granulocytes % Neutrophils % Segmented 87 H Neutrophils % (Manual) Band 7 H Neutrophils % (Manual) Lymphocytes % Lymphocytes % 5 L (Manual) Monocytes % Monocytes % 1 (Manual) Eosinophils % Basophils % Nucleated Red 2 H Blood Cells % Immature 1.160 H Granulocytes # Neutrophils # Neutrophils # 25.2 H (Manual) Band 1.9 H Neutrophils # Lymphocytes 1.4 (Manual) Lymphocytes # Monocytes # Monocytes # 0.2 L (Manual) Eosinophils # Basophils # Nucleated Red Blood Cells # Platelet NORMAL Estimate Giant Platelets 3 H Polychromasia 1+ Hypochromasia 1+ Poikilocytosis 2+ Anisocytosis 3+ Microcytosis 2+ Ovalocytes 1+ Sodium Level 146 H Potassium Level 4.3 Chloride Level 106 Carbon Dioxide 34 H Level Anion Gap 6 Blood Urea 43 H Nitrogen Creatinine 2.06 H Est Glomerular Filtrat Rate mL/min Glucose Level 66 #L Calcium Level 7.3 L Phosphorus 3.4 Level Magnesium Level 2.1 Total Bilirubin 0.3 Direct 0.00 Bilirubin Indirect 0.3 Bilirubin Aspartate Amino 489 H Transf (AST/SGO T) Alanine 367 H Aminotransferas e (ALT/SGPT) Alkaline 49 Phosphatase Troponin I 98.200 *H Total Protein 4.8 L Albumin 2.6 L Globulin 2.20 Albumin/Globuli 1.18 n Ratio Amylase Level 652 H Lipase 697 H Prothrombin 15.8 H Time Prothrombin 1.2 Time Ratio INR 1.25 International Normalized Rati o Activated 28.7 Partial Thrombo plast Time Fibrinogen 451.0 # Bedside Glucose 79 Test 08/10/18 20:59 08/10/18 22:57 08/11/18 00:00 08/11/18 00:28 Bedside Glucose 72 76 Blood Gas Blood Specimen arterial Source Arterial Blood 08/10/2018 11:5 Date Drawn 5:39 PM Arterial Blood 7.561 *H pH (Temp corrected ) Arterial Blood 31.1 L pCO2 (Temp correct) Arterial Blood 96.7 H pO2 (Temp corrected ) Arterial Blood 27.3 H HCO3 Arterial Blood 5.3 H Base Excess Arterial Blood 97.4 Oxygen Saturati on Francois Test ACCEPTAB Arterial Blood Right Radial Gas Puncture Site Arterial 0.3 Blood Carboxyhe moglobin Arterial Blood 0.1 Methemoglobin Blood Gas A-a 513.1 H O2 Differential Oxyhemoglobin 97.0 Percent Blood Gas 37.0 Temperature Blood Gas 14.0 Respiration Rate Blood Gas 18 Actual Respiration Rat e Blood Gas VENT - AC Modality FiO2 90.0 Blood Gas Tidal 500.0 Volume Blood Gas Low 12.0 PEEP Setting Blood Gas 31.0 Inspiratory Pressure Blood Gas RDIONISIO RN Critical Value Read Back Blood Gas MR Notified Whom Blood Gas 08/11/2018 12:0 Notified Time 4:07 AM Prothrombin 15.7 H Time Prothrombin 1.2 Time Ratio INR 1.24 International Normalized Rati o Activated 29.3 Partial Thrombo plast Time Fibrinogen 496.0 #H Sodium Level 148 H Potassium Level 5.0 Chloride Level 106 Carbon Dioxide 34 H Level Anion Gap 8 Blood Urea 44 H Nitrogen Creatinine 2.16 H Est Glomerular Filtrat Rate mL/min Glucose Level 86 Calcium Level 7.1 L Phosphorus 3.5 Level Magnesium Level 2.0 Total Bilirubin 0.3 Direct 0.00 Bilirubin Indirect 0.3 Bilirubin Aspartate Amino 368 H Transf (AST/SGO T) Alanine 319 H Aminotransferas e (ALT/SGPT) Alkaline 44 Phosphatase Troponin I 64.000 *H Total Protein 4.9 L Albumin 2.5 L Globulin 2.40 Albumin/Globuli 1.04 n Ratio Amylase Level 608 H Lipase 586 H Test 08/11/18 00:31 08/11/18 02:39 08/11/18 03:53 08/11/18 04:30 Bedside Glucose 85 75 80 Prothrombin 16.5 H Time Prothrombin 1.3 Time Ratio INR 1.32 International Normalized Rati o Activated 29.7 Partial Thrombo plast Time Fibrinogen 522.0 #H Sodium Level 148 H Potassium Level 4.8 Chloride Level 108 Carbon Dioxide 34 H Level Anion Gap 6 Blood Urea 45 H Nitrogen Creatinine 2.28 H Est Glomerular Filtrat Rate mL/min Glucose Level 83 Calcium Level 7.3 L Phosphorus 4.1 Level Magnesium Level 2.1 Total Bilirubin 0.2 Direct 0.00 Bilirubin Indirect 0.2 Bilirubin Aspartate Amino 359 H Transf (AST/SGO T) Alanine 297 H Aminotransferas e (ALT/SGPT) Alkaline 49 Phosphatase Troponin I 56.500 *H Total Protein 4.7 L Albumin 2.6 L Globulin 2.10 Albumin/Globuli 1.23 n Ratio Amylase Level 569 H Lipase 475 H Random 13.9 Vancomycin Level Test 08/11/18 06:00 08/11/18 07:00 Bedside Glucose 72 Blood Gas Blood Specimen arterial Source Arterial Blood 08/11/2018 7:50 Date Drawn :37 AM Arterial Blood 7.529 H pH (Temp corrected ) Arterial Blood 30.5 L pCO2 (Temp correct) Arterial Blood 63.6 L pO2 (Temp corrected ) Arterial Blood 24.9 HCO3 Arterial Blood 2.6 Base Excess Arterial Blood 92.8 L Oxygen Saturati on Francois Test ACCEPTAB Arterial Blood Right Radial Gas Puncture Site Arterial 0.3 Blood Carboxyhe moglobin Arterial Blood 0.2 Methemoglobin Blood Gas A-a 546.8 H O2 Differential Oxyhemoglobin 92.3 L Percent Blood Gas 37.0 Temperature Blood Gas 14.0 Respiration Rate Blood Gas 33 Actual Respiration Rat e Blood Gas VENT - AC Modality FiO2 90.0 Blood Gas Tidal 500.0 Volume Blood Gas Low 12.0 PEEP Setting Blood Gas TM Notified Whom Blood Gas 08/11/2018 7:59 Notified Time :14 AM SARA WYNN MD Aug 11, 2018 09:09
--- NOTE | 2018-08-11 09:17 | CONS ---
Assessment/Plan Cardiology NYHA: IV Heart Failure Type: Both Assessment/Plan Assessment/Plan (Daily) 1. Acute non-ST elevation myocardial infarction.-- lateral ST depressions, inferior Q waves 2. Acute respiratory failure. 3. Septic versus cardiogenic shock. 4. Severe metabolic acidosis. 5. Poorly controlled type 2 diabetes mellitus. 6. History of chronic kidney disease. 7. Hyperlipidemia. 8. Acute CHF 9. Severe Aortic stenosis with EF 55% 10. Prognosis is guarded. -continue abx -continue pressor support -no acei/bb due to hypotension -lasix once bp better -continue asa, statin -once stable possible defintive treatment for CAD/AORTIC STENOSIS may be warranted, though, patient aware that prognosis extremely guarded Consultation Date/Type/Reason Admit Date/Time Aug 09, 2018 at 01:10 Initial Consult Date 08/10/18 Type of Consult Cardiology Requesting Provider: JAYE ZHAO MD Date/Time of Note DATE: 08/11/18 TIME: 09:06 24 HR Interval Summary Free Text/Dictation The patient with no cahnge Exam/Review of Systems Vital Signs Vitals Vital Signs Date Temp Pulse Resp B/P (MAP) Pulse Ox O2 O2 Flow FiO2 Time Delivery Rate 08/11/18 108 34 128/58 94 Mechanical 07:00 (81) Ventilator 08/11/18 90 05:49 08/11/18 99.0 04:00 08/09/18 13.0 02:34 Intake and Output 08/10/18 08/10/18 08/11/18 1515:00 23:00 07:00 IntakeIntake Total 1525.750 ml 415.450 ml 351.55 ml OutputOutput Total 316 ml 206 ml 499 ml BalanceBalance 1209.750 ml 209.450 ml -147.45 ml Labs Result Diagram: 08/10/18 1814 08/11/18 0430 Results 24hrs Laboratory Tests Test 08/10/18 10:06 08/10/18 11:18 08/10/18 11:49 08/10/18 12:01 Bedside Glucose 234 H 205 186 White Blood 18.9 H Count Red Blood Count 4.25 Hemoglobin 9.2 L Hematocrit 28.3 L Mean 66.6 L Corpuscular Volume Mean 21.6 L Corpuscular Hemoglobin Mean 32.5 Corpuscular Hemoglobin Conc ent Red Cell 14.9 H Distribution Width Platelet Count 224 Mean Platelet 11.8 H Volume Immature 2.400 H Granulocytes % Neutrophils % 89.1 H Lymphocytes % 6.4 L Monocytes % 1.9 Eosinophils % 0.0 Basophils % 0.2 Nucleated Red 0.0 Blood Cells % Immature 0.460 H Granulocytes # Neutrophils # 16.9 H Lymphocytes # 1.2 Monocytes # 0.4 Eosinophils # 0.0 Basophils # 0.0 Nucleated Red 0.0 Blood Cells # Prothrombin 16.1 H Time Prothrombin 1.3 Time Ratio INR 1.28 International Normalized Rati o Activated 29.5 Partial Thrombo plast Time Fibrinogen 388.0 # Sodium Level 149 H Potassium Level 4.0 Chloride Level 105 Carbon Dioxide 33 H Level Anion Gap 11 Blood Urea 41 H Nitrogen Creatinine 1.92 H Est Glomerular Filtrat Rate mL/min Glucose Level 137 # Calcium Level 7.1 L Phosphorus 2.5 Level Magnesium Level 2.1 Total Bilirubin 0.3 Direct 0.00 Bilirubin Indirect 0.3 Bilirubin Aspartate Amino 549 H Transf (AST/SGO T) Alanine 383 H Aminotransferas e (ALT/SGPT) Alkaline 42 Phosphatase Troponin I 117.000 *H Total Protein 4.7 L Albumin 2.5 L Globulin 2.20 Albumin/Globuli 1.13 n Ratio Amylase Level 702 #H Lipase 1333 H Test 08/10/18 12:07 08/10/18 12:29 08/10/18 13:56 08/10/18 15:21 Blood Gas Blood arterial Specimen Source Arterial Blood 08/10/2018 11:56 Date Drawn :10 AM Arterial Blood 7.584 *H pH (Temp corrected ) Arterial Blood 27.7 L pCO2 (Temp correct) Arterial Blood 42.2 *L pO2 (Temp corrected ) Arterial Blood 26.3 H HCO3 Arterial Blood 3.9 H Base Excess Arterial Blood 89.4 L Oxygen Saturati on Francois Test ACCEPTAB Arterial Blood Right Radial Gas Puncture Site Arterial 0.3 Blood Carboxyhe moglobin Arterial Blood 0.3 Methemoglobin Blood Gas A-a 432.6 H O2 Differential Oxyhemoglobin 88.9 L Percent Blood Gas 33.7 Temperature Blood Gas 18.0 Respiration Rate Blood Gas 18 Actual Respiration Rat e Blood Gas VENT - AC Modality FiO2 70.0 Blood Gas Tidal 500.0 Volume Blood Gas Low 12.0 PEEP Setting Blood Gas REBECA HAILE Critical Value Read Back Blood Gas TM Notified Whom Blood Gas 08/10/2018 12:07 Notified Time :14 PM Bedside Glucose 124 141 107 Test 08/10/18 16:19 08/10/18 17:11 08/10/18 17:48 08/10/18 18:00 Bedside Glucose 92 78 82 Blood Gas Blood Specimen arterial Source Arterial Blood 08/10/2018 6:10 Date Drawn :41 PM Arterial Blood 7.503 H pH (Temp corrected ) Arterial Blood 38.1 pCO2 (Temp correct) Arterial Blood 88.5 pO2 (Temp corrected ) Arterial Blood 29.2 H HCO3 Arterial Blood 5.8 H Base Excess Arterial Blood 96.6 Oxygen Saturati on Francois Test ACCEPTAB Arterial Blood Right Radial Gas Puncture Site Arterial 0.3 Blood Carboxyhe moglobin Arterial Blood 0.3 Methemoglobin Blood Gas A-a 514.2 H O2 Differential Oxyhemoglobin 96.0 Percent Blood Gas 37.0 Temperature Blood Gas 14.0 Respiration Rate Blood Gas 14 Actual Respiration Rat e Blood Gas VENT - AC Modality FiO2 90.0 Blood Gas Tidal 500.0 Volume Blood Gas Low 12.0 PEEP Setting Blood Gas MDA Notified Whom Blood Gas 08/10/2018 6:14 Notified Time :43 PM Test 08/10/18 18:14 08/10/18 18:20 08/10/18 18:39 08/10/18 19:02 White Blood 28.4 #H Count Red Blood Count 4.52 Hemoglobin 9.7 L Hematocrit 30.0 L Mean 66.4 L Corpuscular Volume Mean 21.5 L Corpuscular Hemoglobin Mean 32.3 Corpuscular Hemoglobin Conc ent Red Cell 15.1 H Distribution Width Platelet Count 244 Mean Platelet 11.4 H Volume Immature 4.100 H Granulocytes % Neutrophils % Segmented 87 H Neutrophils % (Manual) Band 7 H Neutrophils % (Manual) Lymphocytes % Lymphocytes % 5 L (Manual) Monocytes % Monocytes % 1 (Manual) Eosinophils % Basophils % Nucleated Red 2 H Blood Cells % Immature 1.160 H Granulocytes # Neutrophils # Neutrophils # 25.2 H (Manual) Band 1.9 H Neutrophils # Lymphocytes 1.4 (Manual) Lymphocytes # Monocytes # Monocytes # 0.2 L (Manual) Eosinophils # Basophils # Nucleated Red Blood Cells # Platelet NORMAL Estimate Giant Platelets 3 H Polychromasia 1+ Hypochromasia 1+ Poikilocytosis 2+ Anisocytosis 3+ Microcytosis 2+ Ovalocytes 1+ Sodium Level 146 H Potassium Level 4.3 Chloride Level 106 Carbon Dioxide 34 H Level Anion Gap 6 Blood Urea 43 H Nitrogen Creatinine 2.06 H Est Glomerular Filtrat Rate mL/min Glucose Level 66 #L Calcium Level 7.3 L Phosphorus 3.4 Level Magnesium Level 2.1 Total Bilirubin 0.3 Direct 0.00 Bilirubin Indirect 0.3 Bilirubin Aspartate Amino 489 H Transf (AST/SGO T) Alanine 367 H Aminotransferas e (ALT/SGPT) Alkaline 49 Phosphatase Troponin I 98.200 *H Total Protein 4.8 L Albumin 2.6 L Globulin 2.20 Albumin/Globuli 1.18 n Ratio Amylase Level 652 H Lipase 697 H Prothrombin 15.8 H Time Prothrombin 1.2 Time Ratio INR 1.25 International Normalized Rati o Activated 28.7 Partial Thrombo plast Time Fibrinogen 451.0 # Bedside Glucose 79 Test 08/10/18 20:59 08/10/18 22:57 08/11/18 00:00 08/11/18 00:28 Bedside Glucose 72 76 Blood Gas Blood Specimen arterial Source Arterial Blood 08/10/2018 11:5 Date Drawn 5:39 PM Arterial Blood 7.561 *H pH (Temp corrected ) Arterial Blood 31.1 L pCO2 (Temp correct) Arterial Blood 96.7 H pO2 (Temp corrected ) Arterial Blood 27.3 H HCO3 Arterial Blood 5.3 H Base Excess Arterial Blood 97.4 Oxygen Saturati on Francois Test ACCEPTAB Arterial Blood Right Radial Gas Puncture Site Arterial 0.3 Blood Carboxyhe moglobin Arterial Blood 0.1 Methemoglobin Blood Gas A-a 513.1 H O2 Differential Oxyhemoglobin 97.0 Percent Blood Gas 37.0 Temperature Blood Gas 14.0 Respiration Rate Blood Gas 18 Actual Respiration Rat e Blood Gas VENT - AC Modality FiO2 90.0 Blood Gas Tidal 500.0 Volume Blood Gas Low 12.0 PEEP Setting Blood Gas 31.0 Inspiratory Pressure Blood Gas RDIONISIO RN Critical Value Read Back Blood Gas MR Notified Whom Blood Gas 08/11/2018 12:0 Notified Time 4:07 AM Prothrombin 15.7 H Time Prothrombin 1.2 Time Ratio INR 1.24 International Normalized Rati o Activated 29.3 Partial Thrombo plast Time Fibrinogen 496.0 #H Sodium Level 148 H Potassium Level 5.0 Chloride Level 106 Carbon Dioxide 34 H Level Anion Gap 8 Blood Urea 44 H Nitrogen Creatinine 2.16 H Est Glomerular Filtrat Rate mL/min Glucose Level 86 Calcium Level 7.1 L Phosphorus 3.5 Level Magnesium Level 2.0 Total Bilirubin 0.3 Direct 0.00 Bilirubin Indirect 0.3 Bilirubin Aspartate Amino 368 H Transf (AST/SGO T) Alanine 319 H Aminotransferas e (ALT/SGPT) Alkaline 44 Phosphatase Troponin I 64.000 *H Total Protein 4.9 L Albumin 2.5 L Globulin 2.40 Albumin/Globuli 1.04 n Ratio Amylase Level 608 H Lipase 586 H Test 08/11/18 00:31 08/11/18 02:39 08/11/18 03:53 08/11/18 04:30 Bedside Glucose 85 75 80 Prothrombin 16.5 H Time Prothrombin 1.3 Time Ratio INR 1.32 International Normalized Rati o Activated 29.7 Partial Thrombo plast Time Fibrinogen 522.0 #H Sodium Level 148 H Potassium Level 4.8 Chloride Level 108 Carbon Dioxide 34 H Level Anion Gap 6 Blood Urea 45 H Nitrogen Creatinine 2.28 H Est Glomerular Filtrat Rate mL/min Glucose Level 83 Calcium Level 7.3 L Phosphorus 4.1 Level Magnesium Level 2.1 Total Bilirubin 0.2 Direct 0.00 Bilirubin Indirect 0.2 Bilirubin Aspartate Amino 359 H Transf (AST/SGO T) Alanine 297 H Aminotransferas e (ALT/SGPT) Alkaline 49 Phosphatase Troponin I 56.500 *H Total Protein 4.7 L Albumin 2.6 L Globulin 2.10 Albumin/Globuli 1.23 n Ratio Amylase Level 569 H Lipase 475 H Random 13.9 Vancomycin Level Test 08/11/18 06:00 08/11/18 07:00 Bedside Glucose 72 Blood Gas Blood Specimen arterial Source Arterial Blood 08/11/2018 7:50 Date Drawn :37 AM Arterial Blood 7.529 H pH (Temp corrected ) Arterial Blood 30.5 L pCO2 (Temp correct) Arterial Blood 63.6 L pO2 (Temp corrected ) Arterial Blood 24.9 HCO3 Arterial Blood 2.6 Base Excess Arterial Blood 92.8 L Oxygen Saturati on Francois Test ACCEPTAB Arterial Blood Right Radial Gas Puncture Site Arterial 0.3 Blood Carboxyhe moglobin Arterial Blood 0.2 Methemoglobin Blood Gas A-a 546.8 H O2 Differential Oxyhemoglobin 92.3 L Percent Blood Gas 37.0 Temperature Blood Gas 14.0 Respiration Rate Blood Gas 33 Actual Respiration Rat e Blood Gas VENT - AC Modality FiO2 90.0 Blood Gas Tidal 500.0 Volume Blood Gas Low 12.0 PEEP Setting Blood Gas TM Notified Whom Blood Gas 08/11/2018 7:59 Notified Time :14 AM AURELIA FRAUSTO MD Aug 11, 2018 09:17
--- NOTE | 2018-08-11 09:46 | CONS ---
Consult Date/Type/Reason Admit Date/Time Aug 09, 2018 at 01:10 Initial Consult Date 08/10/18 Type of Consult Pulmonary Requesting Provider: JAYE ZHAO MD Date/Time of Note DATE: 08/11/18 TIME: 09:42 Subjective Patient remains intubated sedated on mechanical ventilation. Still somnolent. Positive gag reflex moderate secretions. Chest x-ray shows ongoing right-sided infiltrate. Objective Vital Signs Date Temp Pulse Resp B/P (MAP) Pulse Ox O2 O2 Flow FiO2 Time Delivery Rate 08/11/18 90 08:00 08/11/18 109 08:00 08/11/18 34 128/58 94 Mechanical 07:00 (81) Ventilator 08/11/18 99.0 04:00 08/09/18 13.0 02:34 Intake and Output 08/10/18 08/10/18 08/11/18 1414:59 22:59 06:59 IntakeIntake Total 1685.675 ml 418.850 ml 299.45 ml OutputOutput Total 346 ml 230 ml 499 ml BalanceBalance 1339.675 ml 188.850 ml -199.55 ml Exam PHYSICAL EXAMINATION: GENERAL: Moderately obese lady, orally intubated on mechanical ventilation. VITAL SIGNS: NECK: Supple. No JVD or lymphadenopathy. CARDIAC: S1, S2. No added sounds or murmurs. CHEST: Diminished air entry bilaterally with rales. ABDOMEN: Mildly distended. EXTREMITIES: No cyanosis, clubbing. A 1+ edema. NEUROLOGIC: Unable to assess. Vent Setting Ventilator Support Mode: AC Fraction of Inspired Oxygen pe: 90 Positive End Expiratory Pressu: 12.0 Results/Medications Result Diagram: 08/10/18 1814 08/11/18 0430 Results 24 hrs Laboratory Tests Test 08/10/18 10:06 08/10/18 11:18 08/10/18 11:49 08/10/18 12:01 Bedside Glucose 234 H 205 186 White Blood 18.9 H Count Red Blood Count 4.25 Hemoglobin 9.2 L Hematocrit 28.3 L Mean 66.6 L Corpuscular Volume Mean 21.6 L Corpuscular Hemoglobin Mean 32.5 Corpuscular Hemoglobin Conc ent Red Cell 14.9 H Distribution Width Platelet Count 224 Mean Platelet 11.8 H Volume Immature 2.400 H Granulocytes % Neutrophils % 89.1 H Lymphocytes % 6.4 L Monocytes % 1.9 Eosinophils % 0.0 Basophils % 0.2 Nucleated Red 0.0 Blood Cells % Immature 0.460 H Granulocytes # Neutrophils # 16.9 H Lymphocytes # 1.2 Monocytes # 0.4 Eosinophils # 0.0 Basophils # 0.0 Nucleated Red 0.0 Blood Cells # Prothrombin 16.1 H Time Prothrombin 1.3 Time Ratio INR 1.28 International Normalized Rati o Activated 29.5 Partial Thrombo plast Time Fibrinogen 388.0 # Sodium Level 149 H Potassium Level 4.0 Chloride Level 105 Carbon Dioxide 33 H Level Anion Gap 11 Blood Urea 41 H Nitrogen Creatinine 1.92 H Est Glomerular Filtrat Rate mL/min Glucose Level 137 # Calcium Level 7.1 L Phosphorus 2.5 Level Magnesium Level 2.1 Total Bilirubin 0.3 Direct 0.00 Bilirubin Indirect 0.3 Bilirubin Aspartate Amino 549 H Transf (AST/SGO T) Alanine 383 H Aminotransferas e (ALT/SGPT) Alkaline 42 Phosphatase Troponin I 117.000 *H Total Protein 4.7 L Albumin 2.5 L Globulin 2.20 Albumin/Globuli 1.13 n Ratio Amylase Level 702 #H Lipase 1333 H Test 08/10/18 12:07 08/10/18 12:29 08/10/18 13:56 08/10/18 15:21 Blood Gas Blood arterial Specimen Source Arterial Blood 08/10/2018 11:56 Date Drawn :10 AM Arterial Blood 7.584 *H pH (Temp corrected ) Arterial Blood 27.7 L pCO2 (Temp correct) Arterial Blood 42.2 *L pO2 (Temp corrected ) Arterial Blood 26.3 H HCO3 Arterial Blood 3.9 H Base Excess Arterial Blood 89.4 L Oxygen Saturati on Francois Test ACCEPTAB Arterial Blood Right Radial Gas Puncture Site Arterial 0.3 Blood Carboxyhe moglobin Arterial Blood 0.3 Methemoglobin Blood Gas A-a 432.6 H O2 Differential Oxyhemoglobin 88.9 L Percent Blood Gas 33.7 Temperature Blood Gas 18.0 Respiration Rate Blood Gas 18 Actual Respiration Rat e Blood Gas VENT - AC Modality FiO2 70.0 Blood Gas Tidal 500.0 Volume Blood Gas Low 12.0 PEEP Setting Blood Gas REBECA HAILE Critical Value Read Back Blood Gas TM Notified Whom Blood Gas 08/10/2018 12:07 Notified Time :14 PM Bedside Glucose 124 141 107 Test 08/10/18 16:19 08/10/18 17:11 08/10/18 17:48 08/10/18 18:00 Bedside Glucose 92 78 82 Blood Gas Blood Specimen arterial Source Arterial Blood 08/10/2018 6:10 Date Drawn :41 PM Arterial Blood 7.503 H pH (Temp corrected ) Arterial Blood 38.1 pCO2 (Temp correct) Arterial Blood 88.5 pO2 (Temp corrected ) Arterial Blood 29.2 H HCO3 Arterial Blood 5.8 H Base Excess Arterial Blood 96.6 Oxygen Saturati on Francois Test ACCEPTAB Arterial Blood Right Radial Gas Puncture Site Arterial 0.3 Blood Carboxyhe moglobin Arterial Blood 0.3 Methemoglobin Blood Gas A-a 514.2 H O2 Differential Oxyhemoglobin 96.0 Percent Blood Gas 37.0 Temperature Blood Gas 14.0 Respiration Rate Blood Gas 14 Actual Respiration Rat e Blood Gas VENT - AC Modality FiO2 90.0 Blood Gas Tidal 500.0 Volume Blood Gas Low 12.0 PEEP Setting Blood Gas MDA Notified Whom Blood Gas 08/10/2018 6:14 Notified Time :43 PM Test 08/10/18 18:14 08/10/18 18:20 08/10/18 18:39 08/10/18 19:02 White Blood 28.4 #H Count Red Blood Count 4.52 Hemoglobin 9.7 L Hematocrit 30.0 L Mean 66.4 L Corpuscular Volume Mean 21.5 L Corpuscular Hemoglobin Mean 32.3 Corpuscular Hemoglobin Conc ent Red Cell 15.1 H Distribution Width Platelet Count 244 Mean Platelet 11.4 H Volume Immature 4.100 H Granulocytes % Neutrophils % Segmented 87 H Neutrophils % (Manual) Band 7 H Neutrophils % (Manual) Lymphocytes % Lymphocytes % 5 L (Manual) Monocytes % Monocytes % 1 (Manual) Eosinophils % Basophils % Nucleated Red 2 H Blood Cells % Immature 1.160 H Granulocytes # Neutrophils # Neutrophils # 25.2 H (Manual) Band 1.9 H Neutrophils # Lymphocytes 1.4 (Manual) Lymphocytes # Monocytes # Monocytes # 0.2 L (Manual) Eosinophils # Basophils # Nucleated Red Blood Cells # Platelet NORMAL Estimate Giant Platelets 3 H Polychromasia 1+ Hypochromasia 1+ Poikilocytosis 2+ Anisocytosis 3+ Microcytosis 2+ Ovalocytes 1+ Sodium Level 146 H Potassium Level 4.3 Chloride Level 106 Carbon Dioxide 34 H Level Anion Gap 6 Blood Urea 43 H Nitrogen Creatinine 2.06 H Est Glomerular Filtrat Rate mL/min Glucose Level 66 #L Calcium Level 7.3 L Phosphorus 3.4 Level Magnesium Level 2.1 Total Bilirubin 0.3 Direct 0.00 Bilirubin Indirect 0.3 Bilirubin Aspartate Amino 489 H Transf (AST/SGO T) Alanine 367 H Aminotransferas e (ALT/SGPT) Alkaline 49 Phosphatase Troponin I 98.200 *H Total Protein 4.8 L Albumin 2.6 L Globulin 2.20 Albumin/Globuli 1.18 n Ratio Amylase Level 652 H Lipase 697 H Prothrombin 15.8 H Time Prothrombin 1.2 Time Ratio INR 1.25 International Normalized Rati o Activated 28.7 Partial Thrombo plast Time Fibrinogen 451.0 # Bedside Glucose 79 Test 08/10/18 20:59 08/10/18 22:57 08/11/18 00:00 08/11/18 00:28 Bedside Glucose 72 76 Blood Gas Blood Specimen arterial Source Arterial Blood 08/10/2018 11:5 Date Drawn 5:39 PM Arterial Blood 7.561 *H pH (Temp corrected ) Arterial Blood 31.1 L pCO2 (Temp correct) Arterial Blood 96.7 H pO2 (Temp corrected ) Arterial Blood 27.3 H HCO3 Arterial Blood 5.3 H Base Excess Arterial Blood 97.4 Oxygen Saturati on Francois Test ACCEPTAB Arterial Blood Right Radial Gas Puncture Site Arterial 0.3 Blood Carboxyhe moglobin Arterial Blood 0.1 Methemoglobin Blood Gas A-a 513.1 H O2 Differential Oxyhemoglobin 97.0 Percent Blood Gas 37.0 Temperature Blood Gas 14.0 Respiration Rate Blood Gas 18 Actual Respiration Rat e Blood Gas VENT - AC Modality FiO2 90.0 Blood Gas Tidal 500.0 Volume Blood Gas Low 12.0 PEEP Setting Blood Gas 31.0 Inspiratory Pressure Blood Gas RDIONISIO RN Critical Value Read Back Blood Gas MR Notified Whom Blood Gas 08/11/2018 12:0 Notified Time 4:07 AM Prothrombin 15.7 H Time Prothrombin 1.2 Time Ratio INR 1.24 International Normalized Rati o Activated 29.3 Partial Thrombo plast Time Fibrinogen 496.0 #H Sodium Level 148 H Potassium Level 5.0 Chloride Level 106 Carbon Dioxide 34 H Level Anion Gap 8 Blood Urea 44 H Nitrogen Creatinine 2.16 H Est Glomerular Filtrat Rate mL/min Glucose Level 86 Calcium Level 7.1 L Phosphorus 3.5 Level Magnesium Level 2.0 Total Bilirubin 0.3 Direct 0.00 Bilirubin Indirect 0.3 Bilirubin Aspartate Amino 368 H Transf (AST/SGO T) Alanine 319 H Aminotransferas e (ALT/SGPT) Alkaline 44 Phosphatase Troponin I 64.000 *H Total Protein 4.9 L Albumin 2.5 L Globulin 2.40 Albumin/Globuli 1.04 n Ratio Amylase Level 608 H Lipase 586 H Test 08/11/18 00:31 08/11/18 02:39 08/11/18 03:53 08/11/18 04:30 Bedside Glucose 85 75 80 Prothrombin 16.5 H Time Prothrombin 1.3 Time Ratio INR 1.32 International Normalized Rati o Activated 29.7 Partial Thrombo plast Time Fibrinogen 522.0 #H Sodium Level 148 H Potassium Level 4.8 Chloride Level 108 Carbon Dioxide 34 H Level Anion Gap 6 Blood Urea 45 H Nitrogen Creatinine 2.28 H Est Glomerular Filtrat Rate mL/min Glucose Level 83 Calcium Level 7.3 L Phosphorus 4.1 Level Magnesium Level 2.1 Total Bilirubin 0.2 Direct 0.00 Bilirubin Indirect 0.2 Bilirubin Aspartate Amino 359 H Transf (AST/SGO T) Alanine 297 H Aminotransferas e (ALT/SGPT) Alkaline 49 Phosphatase Troponin I 56.500 *H Total Protein 4.7 L Albumin 2.6 L Globulin 2.10 Albumin/Globuli 1.23 n Ratio Amylase Level 569 H Lipase 475 H Random 13.9 Vancomycin Level Test 08/11/18 06:00 08/11/18 07:00 Bedside Glucose 72 Blood Gas Blood Specimen arterial Source Arterial Blood 08/11/2018 7:50 Date Drawn :37 AM Arterial Blood 7.529 H pH (Temp corrected ) Arterial Blood 30.5 L pCO2 (Temp correct) Arterial Blood 63.6 L pO2 (Temp corrected ) Arterial Blood 24.9 HCO3 Arterial Blood 2.6 Base Excess Arterial Blood 92.8 L Oxygen Saturati on Francois Test ACCEPTAB Arterial Blood Right Radial Gas Puncture Site Arterial 0.3 Blood Carboxyhe moglobin Arterial Blood 0.2 Methemoglobin Blood Gas A-a 546.8 H O2 Differential Oxyhemoglobin 92.3 L Percent Blood Gas 37.0 Temperature Blood Gas 14.0 Respiration Rate Blood Gas 33 Actual Respiration Rat e Blood Gas VENT - AC Modality FiO2 90.0 Blood Gas Tidal 500.0 Volume Blood Gas Low 12.0 PEEP Setting Blood Gas TM Notified Whom Blood Gas 08/11/2018 7:59 Notified Time :14 AM Medications Current Medications Vancomycin HCl (Vanco Iv Per Pharmacy) VANCOMYCIN PER PHARMACY PER PROTOCOL XX ; Start 08/09/18 at 05:00 Pantoprazole (Protonix Iv) 40 mg DAILY@0600 IV Last administered on 08/09/18at 06:06; Admin Dose 40 MG; Start 08/09/18 at 06:00; Status Hold Norepinephrine 250 ml @ 1.875 mls/ hr TITRATE IV Last administered on 08/11/18at 08:15; Admin Dose 11.25 MLS/HR; Start 08/09/18 at 06:00 Propofol 100 ml @ 2.1 mls/hr PER PROTOCOL IV Last administered on 08/11/18at 02:50; Admin Dose 2.1 MLS/HR; Start 08/09/18 at 06:30 Vecuronium Morton 100 mg/ Dextrose 100 ml @ 4.2 mls/hr [id number] IV Last administered on 08/10/18at 06:06; Admin Dose 0 MLS/HR; Start 08/09/18 at 06:07 Acetaminophen (Tylenol Supp) 650 mg Q4H PRN VA TEMP > 37C; Start 08/09/18 at 06:30 Acetaminophen (Tylenol Liquid) 650 mg Q4H PRN PO TEMP > 37C; Start 08/09/18 at 06:30 Meperidine HCl (Demerol) 12.5 mg Q4H PRN IV AGITATION; Start 08/09/18 at 06:30 Meperidine HCl (Demerol) 25 mg Q4H PRN IV MUSCLE SPASMS; Start 08/09/18 at 06:30 Eye Lubricant (Akwa Oint) 1 applic Q6 BOTH EYES Last administered on 08/11/18at 05:52; Admin Dose 1 APPLIC; Start 08/09/18 at 12:00 Eye Lubricant (Artificial Tears Oph) 2 drop Q6 BOTH EYES Last administered on 08/11/18at 05:51; Admin Dose 2 DROP; Start 08/09/18 at 12:00 Vasopressin 60 unit/Dextrose 60 ml @ 0 mls/hr Q12H IV Last administered on 08/09/18at 16:05; Admin Dose 2.4 MLS/HR; Start 08/09/18 at 11:00 Piperacillin Sod/ Tazobactam Sod 50 ml @ 100 mls/hr Q6 IVPB Last administered on 08/11/18at 05:52; Admin Dose 100 MLS/HR; Start 08/09/18 at 11:00 Aspirin (Aspirin) 81 mg DAILY PO ; Start 08/10/18 at 09:00 Atorvastatin Calcium (Lipitor) 20 mg HS PO Last administered on 08/10/18at 20:46; Admin Dose 20 MG; Start 08/09/18 at 21:00 Phenylephrine HCl 80 mg/Dextrose 250 ml @ 18.75 mls/ hr TITRATE IV Last administered on 08/09/18at 16:08; Admin Dose 37.5 MLS/HR; Start 08/09/18 at 16:00 Ondansetron HCl (Zofran Inj) 4 mg Q4H PRN IV nausea; Start 08/10/18 at 09:30 Vancomycin/Sodium Chloride 250 ml @ 125 mls/hr Q48H IVPB ; Start 08/11/18 at 09:00 Insulin Aspart (Novolog Insulin Pen) NOVOLOG *MILD* ALGORI... Q4 SC ; Start 08/11/18 at 13:00 Assessment/Plan Hospital Course (Demo Recall) IMPRESSION 1. Cardiopulmonary arrest, possibly secondary to community-acquired pneumonia and combination with acute myocardial infarction. Status post hypothermia protocol 2. Hypoxemic respiratory failure likely secondary to above, possible component of aspiration pneumonia following cardiopulmonary arrest. 3. History of diabetes mellitus with significant hyperglycemia. 4. 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 5. History of peripheral neuropathy. 6. History of essential hypertension. 7. Acute renal injury likely secondary to ATN Plan 1. Continue mechanical ventilation decrease FiO2 as tolerated 2. Vasopressor support. Decrease as tolerated 3. Broad-spectrum antibiotics. Continue current antibiotics 4. Continue insulin drip. Decrease of blood glucose remained stable 5. Start tube feeding as tolerated 6. Neuro evaluation if no significant improvement in next 24-48 hours 7. Cardiology recommendations cardiac cath if patient's condition stabilizes. Discussion with family at bedside. Prognosis remains guarded. Family aware. Critical care time 40 minutes DELICIA OQUENDO MD, [facility] Aug 11, 2018 09:46
[2018-08-11] MEDS: VANCOMYCIN 750 MG (PMX) 250 ML IVPB SCH (09:52)
[2018-08-11] MEDS: ASPIRIN 81 MG TAB PO SCH (09:53)
[2018-08-11] MEDS ORDERED: GLUCOSE GEL 15 GRAM TUBE BUCCAL PRN (10:00)
[2018-08-11] MEDS ORDERED: GLUCAGON 1 MG INJ IM PRN (10:00)
[2018-08-11] MEDS ORDERED: DEXTROSE 50% 50 ML SYRINGE IV PRN ×2 (10:00)
[2018-08-11] MEDS ORDERED: GLUCOSE GEL 15 GRAM TUBE PO PRN ×2 (10:00)
[2018-08-11] MEDS: VASOPRESSIN 60 UNIT in DEXTROSE 5% 57 ML IV SCH ×2 (10:03→23:00)
--- NOTE | 2018-08-11 10:36 | NUR ---
WOUND CONSULT: 77 year old female admitted reported with multiple complaints and flu-like symptoms. s/p cardiac arrest. Code blue called on 08/09/18. Patient with history of hypertension, type 2 diabetes mellitus, hyperlipidemia. WBC 28.4. H&H 9.7/30. Plt 244. BUN/Cr45/2.28. Hemoglobin A1C 10.4. Albumin 2.6. Troponin 56.5. Patient currently intubated. OG-tube. Telles cath. On insulin gtt. On pressors and hypothermia protocol. Generalized edema. Max assist to turn. On low air loss surface. ASSESSMENT: - Left hand extravasation. Non-intact blood blister. Area measured 10.5cmx7.5cmx0.1cm. Partial epidermis separation from the distal part of the blister. Moderate serous drainage. No odor. RECOMMENDATIONS: - Left hand blister: Gently cleanse with normal saline. Cover with Xeroform dressing. Then, gauze and wrap with Kerlix. Change daily. Continue to observe area and notify MD and wound nurse if wound condition worsen. - Sacrococcyx: Cover with foam border dressing for protection. Change every 3 days. Assess skin under dressing every shift and reapply dressing. - Bilateral heels and Bilateral ankles: Cover with Allevyn Heels dressing for protection. Change every 3 days. Assess skin under dressing every shift and reapply dressing. - Pericare with barrier cream as needed. - Low air loss surface. - Reposition every 2 hours. - Float heels off bed with pillows or HeelZup cloud. Discussed assessment and plan of care with Sari HAILE. RN to obtain wound care recommendations from MD. ROBERT ChowdhuryN RN CWOCN
[2018-08-11] MEDS: FENTAnyl (DRIP) 1000 mcg/100mL 100 ML IV SCH (11:46)
--- NOTE | 2018-08-11 12:12 | PN ---
DATE: 08/11/2018 SUBJECTIVE: Patient remains intubated and unresponsive. Vital signs are stable. OBJECTIVE: VITAL SIGNS: Afebrile. LUNGS: Clear to auscultation bilaterally. HEART: Regular rate and rhythm. No murmurs or gallops. ABDOMEN: Soft, mildly distended. Normoactive bowel sounds. EXTREMITIES: 1+ edema. ASSESSMENT AND PLAN: 1. Status post cardiorespiratory arrest. 2. Acute respiratory failure. 3. Possible aspiration pneumonia. 4. Urinary tract infection. 5. Septic shock. 6. Type 2 diabetes mellitus. 7. Peripheral neuropathy. 8. Acute kidney injury. 9. Poor prognosis. PLAN: 1. Continue ventilatory support, wean off pressors, continue broad spectrum antibiotics. Pulmonary, cardiology, and infectious diseases and renal followup is appreciated. 2. Neurology consultation will be requested. 3. Plan of care was discussed with her granddaughter at the bedside. Dictated By: JAYE MENESES/NTS Conf#: [id number] DID#: [id number] CC: ROBYN CAMPOS MD;*EndCC*
[2018-08-11] MEDS: INSULIN ASPART [NOVOLOG] 3 ML PEN SC SCH ×3 (13:00→21:18)
--- NOTE | 2018-08-11 13:43 | CONS ---
Assessment/Plan Assessment/Plan Hospital Course (Demo Recall) No acute events overnight patient is laying comfortably in bed she is on very low-dose of Levophed family at bedside no fevers WBC today 28.4 platelets 244 neutrophils 87 BUN 45 creatinine 2.28 Microbiology: Urine culture growing gram-negative rods less than 10,000 colonies, blood culture remain negative Renal ultrasound showed mild left-sided hydronephrosis. Indwelling's: Endotracheal tube, NG tube, Telles catheter, right femoral triple- lumen catheter Antimicrobials: Vancomycin, Zosyn Physical examination: Obese ill-appearing elderly woman who is unresponsive and comfortable on vent. Head atraumatic normocephalic sclera nonicteric. Neck is supple. Chest rise symmetrical, breath sounds diminished bases. Heart: S1-S2. Abdomen soft, bowel sounds hypoactive. Extremities cyanotic with trace edema Assessment: 1. Severe sepsis with shock, possibly cardiogenic 2. Status post cardiopulmonary arrest 3. Acute respiratory failure, intubated 4. Pneumonia, possibly aspirated 5. Encephalopathy, rule out anoxic brain injury 6. Diabetes 7. Acute renal failure possibly acute tubular nephrosis Plan: Remains unchanged status post hypothermia protocol completed this morning, Levophed being titrated down, renal function is getting worse, will change antibiotics to cefepime and clindamycin, await for sputum cultures Consultation Date/Type/Reason Admit Date/Time Aug 09, 2018 at 01:10 Initial Consult Date 08/10/18 Type of Consult id Requesting Provider: JAYE ZHAO MD Date/Time of Note DATE: 08/11/18 TIME: 13:40 Exam/Review of Systems Exam Vitals Vital Signs Date Temp Pulse Resp B/P (MAP) Pulse Ox O2 O2 Flow FiO2 Time Delivery Rate 08/11/18 97 31 97/66 (76) 100 13:15 08/11/18 Mechanical 13:00 Ventilator 08/11/18 98.4 12:00 08/11/18 90 08:00 08/09/18 13.0 02:34 Intake and Output 08/10/18 08/10/18 08/11/18 1414:59 22:59 06:59 IntakeIntake Total 1685.675 ml 418.850 ml 299.45 ml OutputOutput Total 346 ml 230 ml 499 ml BalanceBalance 1339.675 ml 188.850 ml -199.55 ml Results Result Diagram: 08/10/18 1814 08/11/18 0430 Results 24hrs Laboratory Tests Test 08/10/18 13:56 08/10/18 15:21 08/10/18 16:19 08/10/18 17:11 Bedside Glucose 141 107 92 78 Test 08/10/18 17:48 08/10/18 18:00 08/10/18 18:14 08/10/18 18:20 Bedside Glucose 82 Blood Gas Blood arterial Specimen Source Arterial Blood 08/10/2018 6:10: Date Drawn 41 PM Arterial Blood 7.503 H pH (Temp corrected ) Arterial Blood 38.1 pCO2 (Temp correct) Arterial Blood 88.5 pO2 (Temp corrected ) Arterial Blood 29.2 H HCO3 Arterial Blood 5.8 H Base Excess Arterial Blood 96.6 Oxygen Saturati on Francois Test ACCEPTAB Arterial Blood Right Radial Gas Puncture Site Arterial 0.3 Blood Carboxyhe moglobin Arterial Blood 0.3 Methemoglobin Blood Gas A-a 514.2 H O2 Differential Oxyhemoglobin 96.0 Percent Blood Gas 37.0 Temperature Blood Gas 14.0 Respiration Rate Blood Gas 14 Actual Respiration Rat e Blood Gas VENT - AC Modality FiO2 90.0 Blood Gas Tidal 500.0 Volume Blood Gas Low 12.0 PEEP Setting Blood Gas MDA Notified Whom Blood Gas 08/10/2018 6:14: Notified Time 43 PM White Blood 28.4 #H Count Red Blood Count 4.52 Hemoglobin 9.7 L Hematocrit 30.0 L Mean 66.4 L Corpuscular Volume Mean 21.5 L Corpuscular Hemoglobin Mean 32.3 Corpuscular Hemoglobin Conc ent Red Cell 15.1 H Distribution Width Platelet Count 244 Mean Platelet 11.4 H Volume Immature 4.100 H Granulocytes % Neutrophils % Segmented 87 H Neutrophils % (Manual) Band 7 H Neutrophils % (Manual) Lymphocytes % Lymphocytes % 5 L (Manual) Monocytes % Monocytes % 1 (Manual) Eosinophils % Basophils % Nucleated Red 2 H Blood Cells % Immature 1.160 H Granulocytes # Neutrophils # Neutrophils # 25.2 H (Manual) Band 1.9 H Neutrophils # Lymphocytes 1.4 (Manual) Lymphocytes # Monocytes # Monocytes # 0.2 L (Manual) Eosinophils # Basophils # Nucleated Red Blood Cells # Platelet NORMAL Estimate Giant Platelets 3 H Polychromasia 1+ Hypochromasia 1+ Poikilocytosis 2+ Anisocytosis 3+ Microcytosis 2+ Ovalocytes 1+ Sodium Level 146 H Potassium Level 4.3 Chloride Level 106 Carbon Dioxide 34 H Level Anion Gap 6 Blood Urea 43 H Nitrogen Creatinine 2.06 H Est Glomerular Filtrat Rate mL/min Glucose Level 66 #L Calcium Level 7.3 L Phosphorus 3.4 Level Magnesium Level 2.1 Total Bilirubin 0.3 Direct 0.00 Bilirubin Indirect 0.3 Bilirubin Aspartate Amino 489 H Transf (AST/SGO T) Alanine 367 H Aminotransferas e (ALT/SGPT) Alkaline 49 Phosphatase Troponin I 98.200 *H Total Protein 4.8 L Albumin 2.6 L Globulin 2.20 Albumin/Globuli 1.18 n Ratio Amylase Level 652 H Lipase 697 H Test 08/10/18 18:39 08/10/18 19:02 08/10/18 20:59 08/10/18 22:57 Prothrombin 15.8 H Time Prothrombin 1.2 Time Ratio INR 1.25 International Normalized Rati o Activated 28.7 Partial Thrombo plast Time Fibrinogen 451.0 # Bedside Glucose 79 72 76 Test 08/11/18 00:00 08/11/18 00:28 08/11/18 00:31 08/11/18 02:39 Blood Gas Blood arterial Specimen Source Arterial Blood 08/10/2018 11:55 Date Drawn :39 PM Arterial Blood 7.561 *H pH (Temp corrected ) Arterial Blood 31.1 L pCO2 (Temp correct) Arterial Blood 96.7 H pO2 (Temp corrected ) Arterial Blood 27.3 H HCO3 Arterial Blood 5.3 H Base Excess Arterial Blood 97.4 Oxygen Saturati on Francois Test ACCEPTAB Arterial Blood Right Radial Gas Puncture Site Arterial 0.3 Blood Carboxyhe moglobin Arterial Blood 0.1 Methemoglobin Blood Gas A-a 513.1 H O2 Differential Oxyhemoglobin 97.0 Percent Blood Gas 37.0 Temperature Blood Gas 14.0 Respiration Rate Blood Gas 18 Actual Respiration Rat e Blood Gas VENT - AC Modality FiO2 90.0 Blood Gas Tidal 500.0 Volume Blood Gas Low 12.0 PEEP Setting Blood Gas 31.0 Inspiratory Pressure Blood Gas RDIONISIO RN Critical Value Read Back Blood Gas MR Notified Whom Blood Gas 08/11/2018 12:04 Notified Time :07 AM Prothrombin 15.7 H Time Prothrombin 1.2 Time Ratio INR 1.24 International Normalized Rati o Activated 29.3 Partial Thrombo plast Time Fibrinogen 496.0 #H Sodium Level 148 H Potassium Level 5.0 Chloride Level 106 Carbon Dioxide 34 H Level Anion Gap 8 Blood Urea 44 H Nitrogen Creatinine 2.16 H Est Glomerular Filtrat Rate mL/min Glucose Level 86 Calcium Level 7.1 L Phosphorus 3.5 Level Magnesium Level 2.0 Total Bilirubin 0.3 Direct 0.00 Bilirubin Indirect 0.3 Bilirubin Aspartate Amino 368 H Transf (AST/SGO T) Alanine 319 H Aminotransferas e (ALT/SGPT) Alkaline 44 Phosphatase Troponin I 64.000 *H Total Protein 4.9 L Albumin 2.5 L Globulin 2.40 Albumin/Globuli 1.04 n Ratio Amylase Level 608 H Lipase 586 H Bedside Glucose 85 75 Test 08/11/18 03:53 08/11/18 04:30 08/11/18 06:00 08/11/18 07:00 Bedside Glucose 80 72 Prothrombin 16.5 H Time Prothrombin 1.3 Time Ratio INR 1.32 International Normalized Rati o Activated 29.7 Partial Thrombo plast Time Fibrinogen 522.0 #H Sodium Level 148 H Potassium Level 4.8 Chloride Level 108 Carbon Dioxide 34 H Level Anion Gap 6 Blood Urea 45 H Nitrogen Creatinine 2.28 H Est Glomerular Filtrat Rate mL/min Glucose Level 83 Calcium Level 7.3 L Phosphorus 4.1 Level Magnesium Level 2.1 Total Bilirubin 0.2 Direct 0.00 Bilirubin Indirect 0.2 Bilirubin Aspartate Amino 359 H Transf (AST/SGO T) Alanine 297 H Aminotransferas e (ALT/SGPT) Alkaline 49 Phosphatase Troponin I 56.500 *H Total Protein 4.7 L Albumin 2.6 L Globulin 2.10 Albumin/Globuli 1.23 n Ratio Amylase Level 569 H Lipase 475 H Random 13.9 Vancomycin Level Blood Gas Blood Specimen arterial Source Arterial Blood 08/11/2018 7:50 Date Drawn :37 AM Arterial Blood 7.529 H pH (Temp corrected ) Arterial Blood 30.5 L pCO2 (Temp correct) Arterial Blood 63.6 L pO2 (Temp corrected ) Arterial Blood 24.9 HCO3 Arterial Blood 2.6 Base Excess Arterial Blood 92.8 L Oxygen Saturati on Francois Test ACCEPTAB Arterial Blood Right Radial Gas Puncture Site Arterial 0.3 Blood Carboxyhe moglobin Arterial Blood 0.2 Methemoglobin Blood Gas A-a 546.8 H O2 Differential Oxyhemoglobin 92.3 L Percent Blood Gas 37.0 Temperature Blood Gas 14.0 Respiration Rate Blood Gas 33 Actual Respiration Rat e Blood Gas VENT - AC Modality FiO2 90.0 Blood Gas Tidal 500.0 Volume Blood Gas Low 12.0 PEEP Setting Blood Gas TM Notified Whom Blood Gas 08/11/2018 7:59 Notified Time :14 AM Test 08/11/18 07:36 08/11/18 09:58 08/11/18 12:26 Bedside Glucose 81 74 71 ANGELO RIOS NP Aug 11, 2018 13:43
[2018-08-11] MEDS: CEFEPIME 1GM/50 ML (PMX) 50 ML IVPB SCH (15:32)
--- NOTE | 2018-08-11 16:10 | NUR ---
NUTRITION NOTE: PATIENT S/P CARDIAC ARREST/HYPOTHERMIA PROTOCOL. INTUBATED ON LOW DOSE LIPID BASED PROPOFOL. TUBE FEEDING F DIABETISOURCE AC STARTED @ 40 ML/HR WITH 100 ML WATER FLUSHES Q 6 HOURS. AGREE WITH DIET ORDER, WILL PROVIDE 1152 [place]/ 58 GM. PROT/784 ML FREE WATER. SUGGEST KEEP FEEDING RATE AT 40 ML/HR X 48 HOURS. WILL FOLLOW UP.
[2018-08-11] MEDS: CLINDAMYCIN 600 MG/D5W (PMX) 50 ML IVPB SCH ×2 (16:18→21:24)
--- NOTE | 2018-08-11 19:15 | NUR ---
REPORT RECEIVED TO OUTGOING RN. CARE ASSSUMED, EMAR/ ORDER HX. REVIEWED. ANURAG AT BEDSIDE UPDATES GIEN, PLAN OF CARE DISCUSSED.1999 DR. CAMPBELL AT [facility]. PROPOFOL/FENTANYL DRIP HELD FOR NEURO ASSESSMENT. 2100 STATES HE ORDERED EEG/ MRI OF THE HEAD WHEN STABLE. TOLERATING TUBE FEEDING SO FAR BLOOD SUGAR CHECKED RESULT 143. NOVOLOG 1 UNIT SQ. ADMINISTERED PER PROTOCOL
--- NOTE | 2018-08-11 20:14 | NUR ---
EOSS: Patient resting comfortably in bed, intubated on AC 14/450/60/12. Patient on fentanyl at 25, prop at 20, and levo at 4. Family at bedside throughout shift and updated on patients status. Tube feeds started per MD Cruz without incident. No residuals. VSS. Report given to PM RN.
[2018-08-11] MEDS: ACETAMINOPHEN 650MG/20.3ML CUP PO PRN ×2 (20:28→21:21)
[2018-08-11] MEDS: ATORVASTATIN 20 MG TAB PO SCH (21:24)
[2018-08-12] VITALS (106 sets, daily range): BP systolic 85–144; BP diastolic 48–88; PULSE 84–109; RESP 19–38
--- NOTE | 2018-08-12 00:08 | CONS ---
DATE OF ADMISSION: 08/09/2018 DATE OF CONSULTATION: HISTORY OF PRESENT ILLNESS: The patient is 77 years old, status post cardiopulmonary arrest, acute m yocardial infarction, pneumonia, status post hypothermia protocol. The patient is with a past medica l history of diabetes, hypertension, neuropathy. The patient is unresponsive in which I got a call a bout her today for more evaluation and treatment. The patient is intubated and under IV drip of prop ofol. PAST MEDICAL HISTORY: As above which does include hypertension, diabetes, acute renal insufficiency. CURRENT MEDICATIONS: Include: 1. Lipitor 20 mg once a day. 2. Aspirin 81 mg once a day. 3. Tylenol as needed. 4. Vancomycin 1 gram a day, dosed by the Pharmacy. 5. Zofran 4 mg every 4 hours as needed. 6. Phenylephrine drip as needed. 7. Insulin sliding scale. PHYSICAL EXAMINATION: GENERAL: On exam today, the patient does not follow any verbal command, intubated, on IV propofol. CRANIAL NERVES: Cranial nerve II: Pupils reactive to light bilaterally. The right pupil is 4 mm. Left pupil is 3 mm. Cranial nerves III, IV and : Extraocular muscles intact for doll's maneuver. Cranial nerves V and VII: Intact corneal reflex. Cranial VIII through XII: Could not assess. MOTOR: Slight movement for painful stimuli. SENSATION/COORDINATION/GAIT: Could not assess. HEART: Regular rate and rhythm. LUNGS: Equal breath sounds. ABDOMEN: Soft, relaxed, nondistended. No tenderness. ASSESSMENT AND PLAN: The patient is 77 years old: 1. Status post acute encephalopathy. 2. Status post cardiopulmonary arrest. 3. Anoxic brain injury. Follow up the patient with electroencephalogram. 4. Possibility of underlying stroke. Continue the patient on aspirin 81 mg once a day. 5. History of hypertension. Keep the blood pressure at the level of 130/80. 6. Diabetes. Follow up the patient with sliding scale and Accu-Chek. 7. Status post acute renal injury. 8. Respiratory failure in which the patient is intubated. Again, thank you for asking me to see the patient with you. Dictated By: RISHI WOODS MD NA/NTS Conf#: [id number] DID#: [id number] CC: ROBYN CAMPOS MD;*EndCC*
[2018-08-12] MEDS: INSULIN ASPART [NOVOLOG] 3 ML PEN SC SCH ×6 (00:58→20:55)
--- NOTE | 2018-08-12 04:45 | NUR ---
TOLERATING TUBE FEEDING AT 30 CC
[2018-08-12] MEDS: VECURONIUM 100 MG in DEXTROSE 5% 100 ML IV SCH (05:34)
[2018-08-12] MEDS: PIPER-TAZO 2.25 GM/NS 50 ML IVPB SCH ×3 (05:47→17:13)
[2018-08-12] MEDS: CLINDAMYCIN 600 MG/D5W (PMX) 50 ML IVPB SCH (05:47)
[2018-08-12] MEDS: OCULAR LUBRICANT 3.5 GM OPH OINT BOTH EYES SCH ×4 (05:48→23:51)
[2018-08-12] MEDS: ARTIFICIAL TEARS 15 ML OPH BOTH EYES SCH ×4 (05:48→23:51)
[2018-08-12] MEDS: PROPOFOL 100 ML IV SCH ×3 (05:52→23:36)
--- NOTE | 2018-08-12 06:59 | NUR ---
ELDER UPDATED 2X TIFFANY , PT. REMAINS MIN CRITICAL CONDITION
--- NOTE | 2018-08-12 08:59 | CONS ---
Assessment/Plan Cardiology NYHA: IV Heart Failure Type: Both Assessment/Plan Assessment/Plan (Daily) 1. Acute non-ST elevation myocardial infarction.-- lateral ST depressions, inferior Q waves 2. Acute respiratory failure. 3. Septic versus cardiogenic shock. 4. Severe metabolic acidosis. 5. Poorly controlled type 2 diabetes mellitus. 6. History of chronic kidney disease. 7. Hyperlipidemia. 8. Acute CHF 9. Severe Aortic stenosis with EF 55% 10. Prognosis is guarded. -continue abx -continue pressor support -no acei/bb due to hypotension -lasix once bp better -continue asa, statin -once stable possible defintive treatment for CAD/AORTIC STENOSIS may be warranted, though, patient aware that prognosis extremely guarded - family Consultation Date/Type/Reason Admit Date/Time Aug 09, 2018 at 01:10 Initial Consult Date 08/10/18 Type of Consult Cardiology Requesting Provider: JAYE ZHAO MD Date/Time of Note DATE: 08/12/18 TIME: 08:59 24 HR Interval Summary Free Text/Dictation The aptient with no change Exam/Review of Systems Vital Signs Vitals Vital Signs Date Temp Pulse Resp B/P (MAP) Pulse Ox O2 O2 Flow FiO2 Time Delivery Rate 08/12/18 98.5 94 21 100/55 100 Mechanical 07:30 (70) Ventilator 08/12/18 80 05:24 08/09/18 13.0 02:34 Intake and Output 08/11/18 08/11/18 08/12/18 1515:00 23:00 07:00 IntakeIntake Total 619.000 ml 610.575 ml 598.06 ml OutputOutput Total 482 ml 477 ml 290 ml BalanceBalance 137.000 ml 133.575 ml 308.06 ml Labs Result Diagram: 08/12/18 0335 08/12/18 0335 Results 24hrs Laboratory Tests Test 08/11/18 09:58 08/11/18 12:26 08/11/18 13:51 08/11/18 18:02 Bedside Glucose 74 71 143 Blood Gas Blood arterial Specimen Source Arterial Blood 08/11/2018 1:57:0 Date Drawn 3 PM Arterial Blood pH 7.496 H (Temp corrected) Arterial Blood 34.5 L pCO2 (Temp correct) Arterial Blood 226.9 H pO2 (Temp corrected) Arterial Blood 26.1 H HCO3 Arterial Blood 2.9 Base Excess Arterial Blood 98.8 Oxygen Saturation Francois Test ACCEPTAB Arterial Blood Right Radial Gas Puncture Site Arterial 0.2 Blood Carboxyhemo globin Arterial Blood 0.3 Methemoglobin Blood Gas A-a O2 379.4 H Differential Oxyhemoglobin 98.3 Percent Blood Gas 37.0 Temperature Blood Gas 14.0 Respiration Rate Blood Gas Actual 29 Respiration Rate Blood Gas VENT - AC Modality FiO2 90.0 Blood Gas Tidal 450.0 Volume Blood Gas Low 12.0 PEEP Setting Blood Gas TM Notified Whom Blood Gas 08/11/2018 2:09:0 Notified Time 1 PM Test 08/11/18 21:13 08/12/18 00:55 08/12/18 03:35 08/12/18 05:54 Bedside Glucose 146 160 196 White Blood Count 25.0 H Red Blood Count 3.86 L Hemoglobin 8.3 L Hematocrit 26.8 L Mean Corpuscular 69.4 L Volume Mean Corpuscular 21.5 L Hemoglobin Mean Corpuscular 31.0 L Hemoglobin Concen t Red Cell 16.0 H Distribution Width Platelet Count 185 # Mean Platelet 13.1 H Volume Immature 2.400 H Granulocytes % Neutrophils % 89.0 H Lymphocytes % 6.8 L Monocytes % 1.2 Eosinophils % 0.5 Basophils % 0.1 Nucleated Red 0.6 H Blood Cells % Immature 0.600 H Granulocytes # Neutrophils # 22.2 H Lymphocytes # 1.7 Monocytes # 0.3 Eosinophils # 0.1 Basophils # 0.0 Nucleated Red 0.2 H Blood Cells # Prothrombin Time 17.1 H Prothrombin Time 1.3 Ratio INR International 1.38 Normalized Ratio Fibrinogen 589.0 #H Sodium Level 148 H Potassium Level 4.5 Chloride Level 108 Carbon Dioxide 27 Level Anion Gap 13 # Blood Urea 57 H Nitrogen Creatinine 2.61 H Est Glomerular Filtrat Rate mL/min Glucose Level 218 # Calcium Level 7.3 L Troponin I 24.000 *H Medications Medications Current Medications Vancomycin HCl (Vanco Iv Per Pharmacy) VANCOMYCIN PER PHARMACY PER PROTOCOL XX ; Start 08/09/18 at 05:00 Norepinephrine 250 ml @ 1.875 mls/ hr TITRATE IV Last administered on 08/11/18at 08:15; Admin Dose 11.25 MLS/HR; Start 08/09/18 at 06:00 Propofol 100 ml @ 2.1 mls/hr PER PROTOCOL IV Last administered on 08/12/18 05:52; Admin Dose 8.4 MLS/HR; Start 08/09/18 at 06:30 Vecuronium [place] 100 mg/ Dextrose 100 ml @ 4.2 mls/hr [id number] IV Last administered on 08/10/18 06:06; Admin Dose 0 MLS/HR; Start 08/09/18 at 06:07 Acetaminophen (Tylenol Supp) 650 mg Q4H PRN [place] TEMP > 37C; Start 08/09/18 at 06:30 Acetaminophen (Tylenol Liquid) 650 mg Q4H PRN [place] TEMP > 37C Last administered on 08/11/18 21:21; Admin Dose 650 MG; Start 08/09/18 at 06:30 Meperidine HCl (Demerol) 12.5 mg Q4H PRN IV AGITATION; Start 08/09/18 at 06:30 Meperidine HCl (Demerol) 25 mg Q4H PRN IV MUSCLE SPASMS; Start 08/09/18 at 06:30 Eye Lubricant (Akwa Oint) 1 applic Q6 BOTH EYES Last administered on 08/12/18 05:48; Admin Dose 1 APPLIC; Start 08/09/18 at 12:00 Eye Lubricant (Artificial Tears Oph) 2 drop Q6 BOTH EYES Last administered on 08/12/18 05:48; Admin Dose 2 DROP; Start 08/09/18 at 12:00 Vasopressin 60 unit/Dextrose 60 ml @ 0 mls/hr Q12H IV Last administered on 08/09/18 16:05; Admin Dose 2.4 MLS/HR; Start 08/09/18 at 11:00 Piperacillin Sod/ Tazobactam Sod 50 ml @ 100 mls/hr Q6 IVPB Last administered on 08/12/18 05:47; Admin Dose 100 MLS/HR; Start 08/09/18 at 11:00 Aspirin (Aspirin) 81 mg DAILY PO Last administered on 08/11/18 09:53; Admin Dose 81 MG; Start 08/10/18 at 09:00 Atorvastatin Calcium (Lipitor) 20 mg HS PO Last administered on 08/11/18 21:24; Admin Dose 20 MG; Start 08/09/18 at 21:00 Phenylephrine HCl 80 mg/Dextrose 250 ml @ 18.75 mls/ hr TITRATE IV Last administered on 08/09/18at 16:08; Admin Dose 37.5 MLS/HR; Start 08/09/18 at 16:00 Ondansetron HCl (Zofran Inj) 4 mg Q4H PRN IV nausea; Start 08/10/18 at 09:30 Vancomycin/Sodium Chloride 250 ml @ 125 mls/hr Q48H IVPB Last administered on 08/11/18at 09:52; Admin Dose 125 MLS/HR; Start 08/11/18 at 09:00 Insulin Aspart (Novolog Insulin Pen) NOVOLOG *MILD* ALGORI... Q4 SC Last administered on 08/12/18at 05:58; Admin Dose 2 UNIT; Start 08/11/18 at 13:00 Miscellaneous Information 1 ea NOTE XX ; Start 08/11/18 at 10:00 Glucose (Glutose) 15 gm Q15M PRN PO DECREASED GLUCOSE; Start 08/11/18 at 10:00 Glucose (Glutose) 22.5 gm Q15M PRN PO DECREASED GLUCOSE; Start 08/11/18 at 10:00 Dextrose (D50w Syringe) 25 ml Q15M PRN IV DECREASED GLUCOSE; Start 08/11/18 at 10:00 Dextrose (D50w Syringe) 50 ml Q15M PRN IV DECREASED GLUCOSE; Start 08/11/18 at 10:00 Glucagon (Glucagen) 1 mg Q15M PRN IM DECREASED GLUCOSE; Start 08/11/18 at 10:00 Glucose (Glutose) 15 gm Q15M PRN BUCCAL DECREASED GLUCOSE; Start 08/11/18 at 10:00 Fentanyl 100 ml @ 2.5 mls/hr TITRATE IV Last administered on 08/11/18at 11:46; Admin Dose 2.5 MLS/HR; Start 08/11/18 at 11:00 Famotidine (Pepcid) 20 mg DAILY GTB ; Start 08/12/18 at 09:00 Clindamycin HCl/ Dextrose 50 ml @ 50 mls/hr Q8 IVPB Last administered on at 05:47; Admin Dose 50 MLS/HR; Start 08/11/18 at 15:00 Cefepime HCl 50 ml @ 100 mls/hr Q24H IVPB Last administered on 08/11/18at 15:32; Admin Dose 100 MLS/HR; Start 08/11/18 at 14:00 AURELIA FRAUSTO MD Aug 12, 2018 08:59
[2018-08-12] MEDS: FAMOTIDINE 20 MG TAB GTB SCH (09:34)
[2018-08-12] MEDS: ASPIRIN 81 MG TAB PO SCH (09:35)
--- NOTE | 2018-08-12 09:38 | CONS ---
Assessment/Plan Assessment/Plan Assessment/Plan (Daily) Chest x-ray showing diffuse bilateral alveolar infiltrates. Ventilator setting; AC of 14, tidal volume 450, PEEP of 12, 60% FiO2. Patient is currently on propofol 20 mics per kilogram per minute, fentanyl 25 mics per hour. Levophed 7 mics per minute. Assessment recommendations; 1. Patient admitted with cardiac arrest due to acute AL with significant pneumonia likely aspiration, currently on appropriate antimicrobial regimen. 2. Chest x-ray showing diffuse bilateral pneumonia. 3. Possibly anoxic brain injury. Patient status post hypothermia protocol. 4. E. coli UTI. 5. Anemia. 6. Likely acute on chronic renal insufficiency. 7. Persistent hypotension possibly due to acute AL. Continue current supportive care. Perform repeat ABG. Patient currently is too unstable to be transported for MRI imaging of the brain. Meanwhile discontinue clindamycin. Prognosis is guarded. I did have a detailed discussion with the patient's granddaughter in the room and answered all her questions. 35 minutes of critical care time was spent evaluating the patient. Consultation Date/Type/Reason Admit Date/Time Aug 09, 2018 at 01:10 Initial Consult Date Type of Consult Patient's condition is critical. Currently on rewarming phase of hypothermia protocol. Patient has remained hemodynamically stable. General exam; elderly male, orally intubated, sedated. Currently no distress. Requesting Provider: JAYE ZHAO MD Date/Time of Note DATE: 08/12/18 TIME: 09:35 24 HR Interval Summary Free Text/Dictation Patient's condition remains critical. Still requiring fairly high FiO2. General exam; elderly female, orally intubated, sedated, currently in no distress. Exam/Review of Systems Exam Vitals Vital Signs Date Temp Pulse Resp B/P (MAP) Pulse Ox O2 O2 Flow FiO2 Time Delivery Rate 08/12/18 21 94/56 (69) Mechanical 09:15 Ventilator 08/12/18 94 100 09:00 08/12/18 80 08:00 08/12/18 98.5 07:30 08/09/18 13.0 02:34 Intake and Output 08/11/18 08/11/18 08/12/18 1515:00 23:00 07:00 IntakeIntake Total 619.000 ml 610.575 ml 598.06 ml OutputOutput Total 482 ml 477 ml 290 ml BalanceBalance 137.000 ml 133.575 ml 308.06 ml Exam H EENT exam; supple neck, positive JVD. No lymphadenopathy. Midline trachea. No thyromegaly. Orally intubated. Patient has mild bilateral subconjunctival edema. Chest exam; diminished breath sounds throughout. S1-S2 audible, no murmurs. Regular rhythm. Abdomen exam; soft, no organomegaly. Bowel sounds are audible. Extremity exam; trace edema. Pulses 1+. MUSIC TEACHER exam; patient is sedated. Results Result Diagram: 08/12/18 0335 08/12/18 0335 Results 24hrs Laboratory Tests Test 08/11/18 09:58 08/11/18 12:26 08/11/18 13:51 08/11/18 18:02 Bedside Glucose 74 71 143 Blood Gas Blood arterial Specimen Source Arterial Blood 08/11/2018 1:57:0 Date Drawn 3 PM Arterial Blood pH 7.496 H (Temp corrected) Arterial Blood 34.5 L pCO2 (Temp correct) Arterial Blood 226.9 H pO2 (Temp corrected) Arterial Blood 26.1 H HCO3 Arterial Blood 2.9 Base Excess Arterial Blood 98.8 Oxygen Saturation Francois Test ACCEPTAB Arterial Blood Right Radial Gas Puncture Site Arterial 0.2 Blood Carboxyhemo globin Arterial Blood 0.3 Methemoglobin Blood Gas A-a O2 379.4 H Differential Oxyhemoglobin 98.3 Percent Blood Gas 37.0 Temperature Blood Gas 14.0 Respiration Rate Blood Gas Actual 29 Respiration Rate Blood Gas VENT - AC Modality FiO2 90.0 Blood Gas Tidal 450.0 Volume Blood Gas Low 12.0 PEEP Setting Blood Gas TM Notified Whom Blood Gas 08/11/2018 2:09:0 Notified Time 1 PM Test 08/11/18 21:13 08/12/18 00:55 08/12/18 03:35 08/12/18 05:54 Bedside Glucose 146 160 196 White Blood Count 25.0 H Red Blood Count 3.86 L Hemoglobin 8.3 L Hematocrit 26.8 L Mean Corpuscular 69.4 L Volume Mean Corpuscular 21.5 L Hemoglobin Mean Corpuscular 31.0 L Hemoglobin Concen t Red Cell 16.0 H Distribution Width Platelet Count 185 # Mean Platelet 13.1 H Volume Immature 2.400 H Granulocytes % Neutrophils % 89.0 H Lymphocytes % 6.8 L Monocytes % 1.2 Eosinophils % 0.5 Basophils % 0.1 Nucleated Red 0.6 H Blood Cells % Immature 0.600 H Granulocytes # Neutrophils # 22.2 H Lymphocytes # 1.7 Monocytes # 0.3 Eosinophils # 0.1 Basophils # 0.0 Nucleated Red 0.2 H Blood Cells # Prothrombin Time 17.1 H Prothrombin Time 1.3 Ratio INR International 1.38 Normalized Ratio Fibrinogen 589.0 #H Sodium Level 148 H Potassium Level 4.5 Chloride Level 108 Carbon Dioxide 27 Level Anion Gap 13 # Blood Urea 57 H Nitrogen Creatinine 2.61 H Est Glomerular Filtrat Rate mL/min Glucose Level 218 # Calcium Level 7.3 L Troponin I 24.000 *H Medications Medication Current Medications Vancomycin HCl (Vanco Iv Per Pharmacy) VANCOMYCIN PER PHARMACY PER PROTOCOL XX ; Start 08/09/18 at 05:00 Norepinephrine 250 ml @ 1.875 mls/ hr TITRATE IV Last administered on 08/11/18at 08:15; Admin Dose 11.25 MLS/HR; Start 08/09/18 at 06:00 Propofol 100 ml @ 2.1 mls/hr PER PROTOCOL IV Last administered on 08/12/18at 05:52; Admin Dose 8.4 MLS/HR; Start 08/09/18 at 06:30 Vecuronium [place] 100 mg/ Dextrose 100 ml @ 4.2 mls/hr [id number] IV Last administered on 08/10/18at 06:06; Admin Dose 0 MLS/HR; Start 08/09/18 at 06:07 Acetaminophen (Tylenol Supp) 650 mg Q4H PRN [place] TEMP > 37C; Start 08/09/18 at 06:30 Acetaminophen (Tylenol Liquid) 650 mg Q4H PRN PO TEMP > 37C Last administered on 08/11/18at 21:21; Admin Dose 650 MG; Start 08/09/18 at 06:30 Meperidine HCl (Demerol) 12.5 mg Q4H PRN IV AGITATION; Start 08/09/18 at 06:30 Meperidine HCl (Demerol) 25 mg Q4H PRN IV MUSCLE SPASMS; Start 08/09/18 at 06:30 Eye Lubricant (Akwa Oint) 1 applic Q6 BOTH EYES Last administered on 08/12/18at 05:48; Admin Dose 1 APPLIC; Start 08/09/18 at 12:00 Eye Lubricant (Artificial Tears Oph) 2 drop Q6 BOTH EYES Last administered on 08/12/18at 05:48; Admin Dose 2 DROP; Start 08/09/18 at 12:00 Vasopressin 60 unit/Dextrose 60 ml @ 0 mls/hr Q12H IV Last administered on 08/09/18at 16:05; Admin Dose 2.4 MLS/HR; Start 08/09/18 at 11:00 Piperacillin Sod/ Tazobactam Sod 50 ml @ 100 mls/hr Q6 IVPB Last administered on 08/12/18at 05:47; Admin Dose 100 MLS/HR; Start 08/09/18 at 11:00 Aspirin (Aspirin) 81 mg DAILY PO Last administered on 08/11/18at 09:53; Admin Dose 81 MG; Start 08/10/18 at 09:00 Atorvastatin Calcium (Lipitor) 20 mg HS PO Last administered on 08/11/18at 21:24; Admin Dose 20 MG; Start 08/09/18 at 21:00 Phenylephrine HCl 80 mg/Dextrose 250 ml @ 18.75 mls/ hr TITRATE IV Last administered on 08/09/18at 16:08; Admin Dose 37.5 MLS/HR; Start 08/09/18 at 16:00 Ondansetron HCl (Zofran Inj) 4 mg Q4H PRN IV nausea; Start 08/10/18 at 09:30 Vancomycin/Sodium Chloride 250 ml @ 125 mls/hr Q48H IVPB Last administered on 08/11/18at 09:52; Admin Dose 125 MLS/HR; Start 08/11/18 at 09:00 Insulin Aspart (Novolog Insulin Pen) NOVOLOG *MILD* ALGORI... Q4 SC Last administered on 08/12/18at 05:58; Admin Dose 2 UNIT; Start 08/11/18 at 13:00 Miscellaneous Information 1 ea NOTE XX ; Start 08/11/18 at 10:00 Glucose (Glutose) 15 gm Q15M PRN PO DECREASED GLUCOSE; Start 08/11/18 at 10:00 Glucose (Glutose) 22.5 gm Q15M PRN PO DECREASED GLUCOSE; Start 08/11/18 at 10: 00 Dextrose (D50w Syringe) 25 ml Q15M PRN IV DECREASED GLUCOSE; Start 08/11/18 at 10:00 Dextrose (D50w Syringe) 50 ml Q15M PRN IV DECREASED GLUCOSE; Start 08/11/18 at 10:00 Glucagon (Glucagen) 1 mg Q15M PRN IM DECREASED GLUCOSE; Start 08/11/18 at 10:00 Glucose (Glutose) 15 gm Q15M PRN BUCCAL DECREASED GLUCOSE; Start 08/11/18 at 10:00 Fentanyl 100 ml @ 2.5 mls/hr TITRATE IV Last administered on 08/11/18at 11:46; Admin Dose 2.5 MLS/HR; Start 08/11/18 at 11:00 Famotidine (Pepcid) 20 mg DAILY GTB ; Start 08/12/18 at 09:00 Clindamycin HCl/ Dextrose 50 ml @ 50 mls/hr Q8 IVPB Last administered on 08/12/18at 05:47; Admin Dose 50 MLS/HR; Start 08/11/18 at 15:00 Cefepime HCl 50 ml @ 100 mls/hr Q24H IVPB Last administered on 08/11/18at 15:32; Admin Dose 100 MLS/HR; Start 08/11/18 at 14:00 WENDY STEVENSON Aug 12, 2018 09:38
[2018-08-12] MEDS: VASOPRESSIN 60 UNIT in DEXTROSE 5% 57 ML IV SCH ×2 (11:00→22:22)
[2018-08-12] MEDS ORDERED: INSULIN GLARGINE [LANTus] (100 UNITS/ML) SYG SC SCH (12:30)
--- NOTE | 2018-08-12 12:48 | NUR ---
MRI QUESTIONNAIRE COMPLETED. HOWEVER, PT UNABLE TO GO TO MRI. PT ON 60%FIO2 AND PEEP 12. UNABLE TO TITRATE FIO2 DOWN PT DESATURATES TO 87-88%
[2018-08-12] MEDS: CEFEPIME 1GM/50 ML (PMX) 50 ML IVPB SCH (13:08)
[2018-08-12] MEDS: NORepinephrine 8MG/250 ML (PMX 250 ML IV SCH (13:14)
--- NOTE | 2018-08-12 13:35 | CONS ---
Assessment/Plan Assessment/Plan Assessment/Plan (Daily) 1.Non Oliguric Acute kidney injury due to ATN 2. acute hypoxemic respiratory failure intubated on ventilator 3. severe sepsis due to possible aspiration PNA 4. S/p Cardiac Arrest - currently on hypothermia protocol 5. Encephalopathy r/o anoxic damage from cardiac arrest 6. H/o HTN 7. H/o DM II 8. h/o HL Plan: pt remains inubted, BUN/cr 57/1.61 trended high Urine output 1.2 liter in last 24 hr IV abx for Severe sepsis, Renally dose all abx and Monitor electrolytes renal US showed normal size kidneys and mild left hydronephrosis K and magnesium replacement will follow up Patient seen in collaboration with Dr Keith. Family at bed side- all Qs answered. Dw Staff Consultation Date/Type/Reason Admit Date/Time Aug 09, 2018 at 01:10 Initial Consult Date 08/10/18 Type of Consult NEPHROLOGY Reason for Consultation Non Oliguric Acute kidney injury due to ATN Requesting Provider: JAYE ZHAO MD Date/Time of Note DATE: 08/12/18 TIME: 13:34 24 HR Interval Summary Free Text/Dictation - nad - remains intubated - family at bed side- all Qs answered - dw staff Subjective hx not possible: pt non-verbal, pt critical status Constitutional: requiring IVF, requiring O2 Exam/Review of Systems Exam Vitals Vital Signs Date Temp Pulse Resp B/P (MAP) Pulse Ox O2 O2 Flow FiO2 Time Delivery Rate 08/12/18 104 30 117/69 91 Mechanical 13:00 (85) Ventilator 08/12/18 98.9 12:00 08/12/18 80 08:00 08/09/18 13.0 02:34 Intake and Output 08/11/18 08/11/18 08/12/18 1515:00 23:00 07:00 IntakeIntake Total 619.000 ml 610.575 ml 598.06 ml OutputOutput Total 482 ml 477 ml 290 ml BalanceBalance 137.000 ml 133.575 ml 308.06 ml Constitutional: non-verbal, frail Psych: nl mood/affect Eyes: nl lids Neck: other (ET tube intact) Respiratory: diminished breath sounds (bilaterally) Cardiovascular: nl pulses, other (s1s2) Gastrointestinal: soft Musculoskeletal: muscle weakness, range of motion Extremities: edema Neurological: unresponsive Results Result Diagram: 08/12/18 0335 08/12/18 0335 Results 24hrs Laboratory Tests Test 08/11/18 13:51 08/11/18 18:02 08/11/18 21:13 08/12/18 00:55 Blood Gas Blood arterial Specimen Source Arterial Blood 08/11/2018 1:57: Date Drawn 03 PM Arterial Blood 7.496 H pH (Temp corrected) Arterial Blood 34.5 L pCO2 (Temp correct) Arterial Blood 226.9 H pO2 (Temp corrected) Arterial Blood 26.1 H HCO3 Arterial Blood 2.9 Base Excess Arterial Blood 98.8 Oxygen Saturatio n Francois Test ACCEPTAB Arterial Blood Right Radial Gas Puncture Site Arterial 0.2 Blood Carboxyhem oglobin Arterial Blood 0.3 Methemoglobin Blood Gas A-a O2 379.4 H Differential Oxyhemoglobin 98.3 Percent Blood Gas 37.0 Temperature Blood Gas 14.0 Respiration Rate Blood Gas Actual 29 Respiration Rate Blood Gas VENT - AC Modality FiO2 90.0 Blood Gas Tidal 450.0 Volume Blood Gas Low 12.0 PEEP Setting Blood Gas TM Notified Whom Blood Gas 08/11/2018 2:09: Notified Time 01 PM Bedside Glucose 143 146 160 Test 08/12/18 03:35 08/12/18 05:54 08/12/18 08:53 08/12/18 09:32 White Blood 25.0 H Count Red Blood Count 3.86 L Hemoglobin 8.3 L Hematocrit 26.8 L Mean Corpuscular 69.4 L Volume Mean Corpuscular 21.5 L Hemoglobin Mean Corpuscular 31.0 L Hemoglobin Stephie nt Red Cell 16.0 H Distribution Width Platelet Count 185 # Mean Platelet 13.1 H Volume Immature 2.400 H Granulocytes % Neutrophils % 89.0 H Lymphocytes % 6.8 L Monocytes % 1.2 Eosinophils % 0.5 Basophils % 0.1 Nucleated Red 0.6 H Blood Cells % Immature 0.600 H Granulocytes # Neutrophils # 22.2 H Lymphocytes # 1.7 Monocytes # 0.3 Eosinophils # 0.1 Basophils # 0.0 Nucleated Red 0.2 H Blood Cells # Prothrombin Time 17.1 H Prothrombin Time 1.3 Ratio INR 1.38 International Normalized Ratio Fibrinogen 589.0 #H Sodium Level 148 H Potassium Level 4.5 Chloride Level 108 Carbon Dioxide 27 Level Anion Gap 13 # Blood Urea 57 H Nitrogen Creatinine 2.61 H Est Glomerular Filtrat Rate mL/min Glucose Level 218 # Calcium Level 7.3 L Troponin I 24.000 *H Bedside Glucose 196 266 H Blood Gas Blood arterial Specimen Source Arterial Blood 08/12/2018 10:05 Date Drawn :00 AM Arterial Blood 7.466 H pH (Temp corrected) Arterial Blood 33.2 L pCO2 (Temp correct) Arterial Blood 148.5 H pO2 (Temp corrected) Arterial Blood 23.4 HCO3 Arterial Blood -0.1 Base Excess Arterial Blood 98.3 Oxygen Saturatio n Francois Test ACCEPTAB Arterial Blood Right Radial Gas Puncture Site Arterial 0.2 Blood Carboxyhem oglobin Arterial Blood 0.3 Methemoglobin Blood Gas A-a O2 242.8 H Differential Oxyhemoglobin 97.8 Percent Blood Gas 37.0 Temperature Blood Gas 14.0 Respiration Rate Blood Gas Actual 26 Respiration Rate Blood Gas VENT - AC Modality FiO2 60.0 Blood Gas Tidal 450.0 Volume Blood Gas Low 14.0 PEEP Setting Blood Gas DT Notified Whom Blood Gas 08/12/2018 10:22 Notified Time :00 AM Test 08/12/18 12:36 Bedside Glucose 286 H Medications Medication Current Medications Vancomycin HCl (Vanco Iv Per Pharmacy) VANCOMYCIN PER PHARMACY PER PROTOCOL XX ; Start 08/09/18 at 05:00 Norepinephrine 250 ml @ 1.875 mls/ hr TITRATE IV Last administered on 08/12/18at 13:14; Admin Dose 13.119 MLS/HR; Start 08/09/18 at 06:00 Propofol 100 ml @ 2.1 mls/hr PER PROTOCOL IV Last administered on 08/12/18at 05:52; Admin Dose 8.4 MLS/HR; Start 08/09/18 at 06:30 Vecuronium [place] 100 mg/ Dextrose 100 ml @ 4.2 mls/hr [id number] IV Last administered on 08/10/18at 06:06; Admin Dose 0 MLS/HR; Start 08/09/18 at 06:07 Acetaminophen (Tylenol Supp) 650 mg Q4H PRN [place] TEMP > 37C; Start 08/09/18 at 06:30 Acetaminophen (Tylenol Liquid) 650 mg Q4H PRN PO TEMP > 37C Last administered on 08/11/18at 21:21; Admin Dose 650 MG; Start 08/09/18 at 06:30 Meperidine HCl (Demerol) 12.5 mg Q4H PRN IV AGITATION; Start 08/09/18 at 06:30 Meperidine HCl (Demerol) 25 mg Q4H PRN IV MUSCLE SPASMS; Start 08/09/18 at 06:30 Eye Lubricant (Akwa Oint) 1 applic Q6 BOTH EYES Last administered on 08/12/18 11:23; Admin Dose 1 APPLIC; Start 08/09/18 at 12:00 Eye Lubricant (Artificial Tears Oph) 2 drop Q6 BOTH EYES Last administered on 08/12/18 11:23; Admin Dose 2 DROP; Start 08/09/18 at 12:00 Vasopressin 60 unit/Dextrose 60 ml @ 0 mls/hr Q12H IV Last administered on 08/09/18 16:05; Admin Dose 2.4 MLS/HR; Start 08/09/18 at 11:00 Piperacillin Sod/ Tazobactam Sod 50 ml @ 100 mls/hr Q6 IVPB Last administered on 08/12/18 11:23; Admin Dose 100 MLS/HR; Start 08/09/18 at 11:00 Aspirin (Aspirin) 81 mg DAILY PO Last administered on 08/12/18 09:35; Admin Dose 81 MG; Start 08/10/18 at 09:00 Atorvastatin Calcium (Lipitor) 20 mg HS PO Last administered on 08/11/18 21:24; Admin Dose 20 MG; Start 08/09/18 at 21:00 Phenylephrine HCl 80 mg/Dextrose 250 ml @ 18.75 mls/ hr TITRATE IV Last administered on 08/09/18 16:08; Admin Dose 37.5 MLS/HR; Start 08/09/18 at 16:00 Ondansetron HCl (Zofran Inj) 4 mg Q4H PRN IV nausea; Start 08/10/18 at 09:30 Vancomycin/Sodium Chloride 250 ml @ 125 mls/hr Q48H IVPB Last administered on 08/11/18 09:52; Admin Dose 125 MLS/HR; Start 08/11/18 at 09:00 Insulin Aspart (Novolog Insulin Pen) NOVOLOG *MILD* ALGORI... Q4 SC Last administered on 08/12/18 12:38; Admin Dose 4 UNIT; Start 08/11/18 at 13:00 Miscellaneous Information 1 ea NOTE XX ; Start 08/11/18 at 10:00 Glucose (Glutose) 15 gm Q15M PRN PO DECREASED GLUCOSE; Start 08/11/18 at 10:00 Glucose (Glutose) 22.5 gm Q15M PRN PO DECREASED GLUCOSE; Start 08/11/18 at 10:00 Dextrose (D50w Syringe) 25 ml Q15M PRN IV DECREASED GLUCOSE; Start 08/11/18 at 10:00 Dextrose (D50w Syringe) 50 ml Q15M PRN IV DECREASED GLUCOSE; Start 08/11/18 at 10:00 Glucagon (Glucagen) 1 mg Q15M PRN IM DECREASED GLUCOSE; Start 08/11/18 at 10:00 Glucose (Glutose) 15 gm Q15M PRN BUCCAL DECREASED GLUCOSE; Start 08/11/18 at 10:00 Fentanyl 100 ml @ 2.5 mls/hr TITRATE IV Last administered on 08/11/18at 11:46; Admin Dose 2.5 MLS/HR; Start 08/11/18 at 11:00 Famotidine (Pepcid) 20 mg DAILY GTB Last administered on 08/12/18at 09:34; Admin Dose 20 MG; Start 08/12/18 at 09:00 Cefepime HCl 50 ml @ 100 mls/hr Q24H IVPB Last administered on 08/12/18at 13:08; Admin Dose 100 MLS/HR; Start 08/11/18 at 14:00 Insulin Glargine (Lantus) 15 units DAILY@0800 SC Last administered on 08/12/18at 12:38; Admin Dose 15 UNITS; Start 08/12/18 at 12:30 ДМИТРИЙ BOWERS Aug 12, 2018 1:35 pm
--- NOTE | 2018-08-12 15:01 | CONS ---
Assessment/Plan Assessment/Plan Hospital Course (Demo Recall) No events overnight patient remains unresponsive intubated on 5 mics of Levophed drip in no distress, no fevers overnight WBC 25 platelets 185 neutrophils 89 BUN 57 creatinine 2.61 troponinc 24.000 Chest x-ray this morning revealed cardiomegaly. Interval decrease in patchy infiltrates throughout both lungs Microbiology: Urine culture growing gram-negative rods less than 10,000 colonies, blood culture remain negative Renal ultrasound showed mild left-sided hydronephrosis. Indwelling's: Endotracheal tube, NG tube, Telles catheter, right femoral triple- lumen catheter Antimicrobials: Vancomycin, cefepime Physical examination: Obese ill-appearing elderly woman who is unresponsive and comfortable on vent. Head atraumatic normocephalic sclera nonicteric. Neck is supple. Chest rise symmetrical, breath sounds diminished bases. Heart: S1-S2. Abdomen soft, bowel sounds hypoactive. Extremities cyanotic with trace edema Assessment: 1. Severe sepsis with shock, possibly cardiogenic 2. Status post cardiopulmonary arrest 3. Acute respiratory failure, intubated 4. Pneumonia, possibly aspirated 5. Encephalopathy, rule out anoxic brain injury 6. Diabetes 7. Acute renal failure possibly ATN Plan: Remains unchanged, still on pressors, chest x-ray looks better, continue antibiotics, follow sputum culture, pending MRI of the brain when patient is more stable. Vent support per pulmonary Consultation Date/Type/Reason Admit Date/Time Aug 09, 2018 at 01:10 Initial Consult Date 08/10/18 Type of Consult id Requesting Provider: JAYE ZHAO MD Date/Time of Note DATE: 08/12/18 TIME: 15:00 Exam/Review of Systems Exam Vitals Vital Signs Date Temp Pulse Resp B/P (MAP) Pulse Ox O2 O2 Flow FiO2 Time Delivery Rate 08/12/18 104 30 117/69 91 Mechanical 13:00 (85) Ventilator 08/12/18 98.9 12:00 08/12/18 60 11:40 08/09/18 13.0 02:34 Intake and Output 08/11/18 08/11/18 08/12/18 1515:00 23:00 07:00 IntakeIntake Total 619.000 ml 610.575 ml 598.06 ml OutputOutput Total 482 ml 477 ml 290 ml BalanceBalance 137.000 ml 133.575 ml 308.06 ml Results Result Diagram: 08/12/18 0335 08/12/18 0335 Results 24hrs Laboratory Tests Test 08/11/18 18:02 08/11/18 21:13 08/12/18 00:55 08/12/18 03:35 Bedside Glucose 143 146 160 White Blood Count 25.0 H Red Blood Count 3.86 L Hemoglobin 8.3 L Hematocrit 26.8 L Mean Corpuscular 69.4 L Volume Mean Corpuscular 21.5 L Hemoglobin Mean Corpuscular 31.0 L Hemoglobin Concen t Red Cell 16.0 H Distribution Width Platelet Count 185 # Mean Platelet 13.1 H Volume Immature 2.400 H Granulocytes % Neutrophils % 89.0 H Lymphocytes % 6.8 L Monocytes % 1.2 Eosinophils % 0.5 Basophils % 0.1 Nucleated Red 0.6 H Blood Cells % Immature 0.600 H Granulocytes # Neutrophils # 22.2 H Lymphocytes # 1.7 Monocytes # 0.3 Eosinophils # 0.1 Basophils # 0.0 Nucleated Red 0.2 H Blood Cells # Prothrombin Time 17.1 H Prothrombin Time 1.3 Ratio INR International 1.38 Normalized Ratio Fibrinogen 589.0 #H Sodium Level 148 H Potassium Level 4.5 Chloride Level 108 Carbon Dioxide 27 Level Anion Gap 13 # Blood Urea 57 H Nitrogen Creatinine 2.61 H Est Glomerular Filtrat Rate mL/min Glucose Level 218 # Calcium Level 7.3 L Troponin I 24.000 *H Test 08/12/18 05:54 08/12/18 08:53 08/12/18 09:32 08/12/18 12:36 Bedside Glucose 196 266 H 286 H Blood Gas Blood arterial Specimen Source Arterial Blood 08/12/2018 10:05: Date Drawn 00 AM Arterial Blood pH 7.466 H (Temp corrected) Arterial Blood 33.2 L pCO2 (Temp correct) Arterial Blood 148.5 H pO2 (Temp corrected) Arterial Blood 23.4 HCO3 Arterial Blood -0.1 Base Excess Arterial Blood 98.3 Oxygen Saturation Francois Test ACCEPTAB Arterial Blood Right Radial Gas Puncture Site Arterial 0.2 Blood Carboxyhemo globin Arterial Blood 0.3 Methemoglobin Blood Gas A-a O2 242.8 H Differential Oxyhemoglobin 97.8 Percent Blood Gas 37.0 Temperature Blood Gas 14.0 Respiration Rate Blood Gas Actual 26 Respiration Rate Blood Gas VENT - AC Modality FiO2 60.0 Blood Gas Tidal 450.0 Volume Blood Gas Low 14.0 PEEP Setting Blood Gas DT Notified Whom Blood Gas 08/12/2018 10:22: Notified Time 00 AM Medications Medication Current Medications Vancomycin HCl (Vanco Iv Per Pharmacy) VANCOMYCIN PER PHARMACY PER PROTOCOL XX ; Start 08/09/18 at 05:00 Norepinephrine 250 ml @ 1.875 mls/ hr TITRATE IV Last administered on 08/12/18 13:14; Admin Dose 13.119 MLS/HR; Start 08/09/18 at 06:00 Propofol 100 ml @ 2.1 mls/hr PER PROTOCOL IV Last administered on 08/12/18 14:01; Admin Dose 8.4 MLS/HR; Start 08/09/18 at 06:30 Vecuronium [place] 100 mg/ Dextrose 100 ml @ 4.2 mls/hr [id number] IV Last administered on 08/10/18 06:06; Admin Dose 0 MLS/HR; Start 08/09/18 at 06:07 Acetaminophen (Tylenol Supp) 650 mg Q4H PRN [place] TEMP > 37C; Start 08/09/18 at 06:30 Acetaminophen (Tylenol Liquid) 650 mg Q4H PRN PO TEMP > 37C Last administered on 08/11/18at 21:21; Admin Dose 650 MG; Start 08/09/18 at 06:30 Meperidine HCl (Demerol) 12.5 mg Q4H PRN IV AGITATION; Start 08/09/18 at 06:30 Meperidine HCl (Demerol) 25 mg Q4H PRN IV MUSCLE SPASMS; Start 08/09/18 at 06:30 Eye Lubricant (Akwa Oint) 1 applic Q6 BOTH EYES Last administered on 08/12/18at 11:23; Admin Dose 1 APPLIC; Start 08/09/18 at 12:00 Eye Lubricant (Artificial Tears Oph) 2 drop Q6 BOTH EYES Last administered on 08/12/18 11:23; Admin Dose 2 DROP; Start 08/09/18 at 12:00 Vasopressin 60 unit/Dextrose 60 ml @ 0 mls/hr Q12H IV Last administered on 08/09/18at 16:05; Admin Dose 2.4 MLS/HR; Start 08/09/18 at 11:00 Piperacillin Sod/ Tazobactam Sod 50 ml @ 100 mls/hr Q6 IVPB Last administered on 08/12/18at 11:23; Admin Dose 100 MLS/HR; Start 08/09/18 at 11:00 Aspirin (Aspirin) 81 mg DAILY PO Last administered on 08/12/18at 09:35; Admin Dose 81 MG; Start 08/10/18 at 09:00 Atorvastatin Calcium (Lipitor) 20 mg HS PO Last administered on 08/11/18at 21:24; Admin Dose 20 MG; Start 08/09/18 at 21:00 Phenylephrine HCl 80 mg/Dextrose 250 ml @ 18.75 mls/ hr TITRATE IV Last ad ministered on 08/09/18at 16:08; Admin Dose 37.5 MLS/HR; Start 08/09/18 at 16:00 Ondansetron HCl (Zofran Inj) 4 mg Q4H PRN IV nausea; Start 08/10/18 at 09:30 Vancomycin/Sodium Chloride 250 ml @ 125 mls/hr Q48H IVPB Last administered on 08/11/18at 09:52; Admin Dose 125 MLS/HR; Start 08/11/18 at 09:00 Insulin Aspart (Novolog Insulin Pen) NOVOLOG *MILD* ALGORI... Q4 SC Last administered on 08/12/18at 12:38; Admin Dose 4 UNIT; Start 08/11/18 at 13:00 Miscellaneous Information 1 ea NOTE XX ; Start 08/11/18 at 10:00 Glucose (Glutose) 15 gm Q15M PRN PO DECREASED GLUCOSE; Start 08/11/18 at 10:00 Glucose (Glutose) 22.5 gm Q15M PRN PO DECREASED GLUCOSE; Start 08/11/18 at 10:00 Dextrose (D50w Syringe) 25 ml Q15M PRN IV DECREASED GLUCOSE; Start 08/11/18 at 10:00 Dextrose (D50w Syringe) 50 ml Q15M PRN IV DECREASED GLUCOSE; Start 08/11/18 at 10:00 Glucagon (Glucagen) 1 mg Q15M PRN IM DECREASED GLUCOSE; Start 08/11/18 at 10:00 Glucose (Glutose) 15 gm Q15M PRN BUCCAL DECREASED GLUCOSE; Start 08/11/18 at 10:00 Fentanyl 100 ml @ 2.5 mls/hr TITRATE IV Last administered on 08/11/18at 11:46; Admin Dose 2.5 MLS/HR; Start 08/11/18 at 11:00 Famotidine (Pepcid) 20 mg DAILY GTB Last administered on 08/12/18at 09:34; Admin Dose 20 MG; Start 08/12/18 at 09:00 Cefepime HCl 50 ml @ 100 mls/hr Q24H IVPB Last administered on 08/12/18at 13:08; Admin Dose 100 MLS/HR; Start 08/11/18 at 14:00 Insulin Glargine (Lantus) 15 units DAILY@0800 SC Last administered on 08/12/18at 12:38; Admin Dose 15 UNITS; Start 08/12/18 at 12:30 ANGELO RIOS NP Aug 12, 2018 15:01
[2018-08-12] MEDS ORDERED: INSULIN HUMAN REGULAR 100 UNIT in SOD CHLORIDE 0.9% 99 ML IV SCH (18:00)
[2018-08-12] MEDS: ACCU-CHEK XX SCH ×6 (18:32→23:48)
--- NOTE | 2018-08-12 18:49 | NUR ---
END OF SHIFT SUMMARY - FIO2 DECREASED TO 50% O2 SAT 100%. TOLERATES TUBE FEEDS WELL. INSULIN DRIP STARTED AT 3UNITS/HR. FAMILY UPDATED ON PLAN OF CARE. PT UNSTABLE FOR MRI AT THIS TIME. PEEP REMAINS AT 12
[2018-08-12] MEDS: ACETAMINOPHEN 650MG/20.3ML CUP PO PRN (20:49)
[2018-08-12] MEDS: ATORVASTATIN 20 MG TAB PO SCH (20:49)
--- NOTE | 2018-08-12 20:55 | NUR ---
BG 235, 3U Novolog held at this time, patient was restarted on insulin drip 3U/hr, at 1830
[2018-08-12] MEDS: FENTAnyl (DRIP) 1000 mcg/100mL 100 ML IV SCH (22:49)
[2018-08-13] VITALS (86 sets, daily range): BP systolic 85–133; BP diastolic 51–71; PULSE 78–108; RESP 16–46
[2018-08-13] MEDS: ACCU-CHEK XX SCH ×20 (00:51→20:23)
[2018-08-13] MEDS: INSULIN ASPART [NOVOLOG] 3 ML PEN SC SCH ×6 (01:00→20:23)
[2018-08-13] MEDS: VECURONIUM 100 MG in DEXTROSE 5% 100 ML IV SCH (04:55)
[2018-08-13] MEDS: OCULAR LUBRICANT 3.5 GM OPH OINT BOTH EYES SCH ×3 (06:01→18:54)
[2018-08-13] MEDS: ARTIFICIAL TEARS 15 ML OPH BOTH EYES SCH ×3 (06:01→18:54)
--- NOTE | 2018-08-13 06:08 | CONS ---
Assessment/Plan Assessment/Plan Assessment/Plan (Daily) 1.Non Oliguric Acute kidney injury due to ATN 2. acute hypoxemic respiratory failure intubated on ventilator 3. severe sepsis due to possible aspiration PNA 4. S/p Cardiac Arrest - currently on hypothermia protocol 5. Encephalopathy r/o anoxic damage from cardiac arrest 6. H/o HTN 7. H/o DM II 8. h/o HL Plan: pt remains inubted, BUN/cr 61/3.12 trended high Urine output 900 ml in last 24 hr IV abx for Severe sepsis, Renally dose all abx and Monitor electrolytes renal US showed normal size kidneys and mild left hydronephrosis will follow up Patient seen in collaboration with Dr Keith. Family at bed side- all Qs answered. Dw Staff Consultation Date/Type/Reason Admit Date/Time Aug 09, 2018 at 1:10 am Initial Consult Date 08/10/18 Requesting Provider: JAYE ZHAO MD Date/Time of Note DATE: 08/13/18 TIME: 06:04 24 HR Interval Summary Free Text/Dictation - remains intubated - NAD -UO- 900 ML Subjective hx not possible: pt non-verbal Constitutional: requiring O2 Exam/Review of Systems Exam Vitals Vital Signs Date Temp Pulse Resp B/P (MAP) Pulse Ox O2 O2 Flow FiO2 Time Delivery Rate 08/13/18 100 05:45 08/13/18 99 25 94 05:26 08/13/18 127/65 03:45 (85) 08/13/18 Mechanical 03:00 Ventilator 08/13/18 98.4 01:30 Intake and Output 08/12/18 08/12/18 08/13/18 1515:00 23:00 07:00 IntakeIntake Total 780.382 ml 397.58 ml 81.08 ml OutputOutput Total 240 ml 190 ml BalanceBalance 540.382 ml 207.58 ml 81.08 ml Constitutional: non-verbal, frail Psych: nl mood/affect Eyes: nl lids ENMT: nl external ears & nose Neck: non-tender, other (remaind intubated) Respiratory: diminished breath sounds (bilaterally) Cardiovascular: nl pulses, other (s1s2) Gastrointestinal: soft Musculoskeletal: muscle weakness, range of motion Extremities: edema Neurological: unresponsive Results Result Diagram: 08/13/1842908/13/18429 Results 24hrs Laboratory Tests Test 08/12/18 08:53 08/12/18 09:32 08/12/18 12:36 08/12/18 17:10 Blood Gas Blood arterial Specimen Source Arterial Blood 08/12/2018 10:05: Date Drawn 00 AM Arterial Blood pH 7.466 H (Temp corrected) Arterial Blood 33.2 L pCO2 (Temp correct) Arterial Blood 148.5 H pO2 (Temp corrected) Arterial Blood 23.4 HCO3 Arterial Blood -0.1 Base Excess Arterial Blood 98.3 Oxygen Saturation Francois Test ACCEPTAB Arterial Blood Right Radial Gas Puncture Site Arterial 0.2 Blood Carboxyhemo globin Arterial Blood 0.3 Methemoglobin Blood Gas A-a O2 242.8 H Differential Oxyhemoglobin 97.8 Percent Blood Gas 37.0 Temperature Blood Gas 14.0 Respiration Rate Blood Gas Actual 26 Respiration Rate Blood Gas VENT - AC Modality FiO2 60.0 Blood Gas Tidal 450.0 Volume Blood Gas Low 14.0 PEEP Setting Blood Gas DT Notified Whom Blood Gas 08/12/2018 10:22: Notified Time 00 AM Bedside Glucose 266 H 286 H 314 H Test 08/12/18 18:32 08/12/18 20:46 08/12/18 21:49 08/12/18 22:45 Bedside Glucose 277 H 235 H 230 H 216 Test 08/12/18 23:48 08/13/18 00:49 08/13/18 01:45 08/13/18 02:46 Bedside Glucose 203 212 198 162 Test 08/13/18 03:48 08/13/18 04:30 08/13/18 04:42 08/13/18 05:52 Bedside Glucose 143 139 153 White Blood Count 19.8 #H Red Blood Count 3.67 L Hemoglobin 7.9 L Hematocrit 25.3 L Mean Corpuscular 68.9 L Volume Mean Corpuscular 21.5 L Hemoglobin Mean Corpuscular 31.2 L Hemoglobin Concen t Red Cell 15.3 H Distribution Width Platelet Count 159 Mean Platelet 13.1 H Volume Immature 3.100 H Granulocytes % Neutrophils % 80.9 H Lymphocytes % 11.2 L Monocytes % 2.4 Eosinophils % 2.2 Basophils % 0.2 Nucleated Red 1.2 H Blood Cells % Immature 0.610 H Granulocytes # Neutrophils # 16.0 H Lymphocytes # 2.2 Monocytes # 0.5 Eosinophils # 0.4 Basophils # 0.0 Nucleated Red 0.2 H Blood Cells # Sodium Level 150 H Potassium Level 3.8 Chloride Level 110 Carbon Dioxide 31 Level Anion Gap 9 Blood Urea 61 H Nitrogen Creatinine 3.12 H Est Glomerular Filtrat Rate mL/min Glucose Level 150 Calcium Level 7.7 L Random Vancomycin 12.7 Level Test 08/13/18 06:00 Blood Gas Blood arterial Specimen Source Arterial Blood 08/13/2018 5:25:1 Date Drawn 9 AM Arterial Blood pH 7.452 H (Temp corrected) Arterial Blood 38.8 pCO2 (Temp correct) Arterial Blood 50.3 *L pO2 (Temp corrected) Arterial Blood 26.5 H HCO3 Arterial Blood 2.4 Base Excess Arterial Blood 84.9 L Oxygen Saturation Francois Test ACCEPTAB Arterial Blood Right Radial Gas Puncture Site Arterial 0.3 Blood Carboxyhemo globin Arterial Blood 0.4 Methemoglobin Blood Gas A-a O2 407.1 H Differential Oxyhemoglobin 84.3 L Percent Blood Gas 37.0 Temperature Blood Gas 14.0 Respiration Rate Blood Gas Actual 26 Respiration Rate Blood Gas VENT - AC Modality FiO2 70.0 Blood Gas Tidal 450.0 Volume Blood Gas Low 12.0 PEEP Setting Blood Gas [employer] Critical Value Read Back Blood Gas MA Notified Whom Blood Gas 08/13/2018 5:38:2 Notified Time 4 AM Medications Medication Current Medications Vancomycin HCl (Vanco Iv Per Pharmacy) VANCOMYCIN PER PHARMACY PER PROTOCOL XX ; Start 08/09/18 at 05:00 Norepinephrine 250 ml @ 1.875 mls/ hr TITRATE IV Last administered on at 13:14; Admin Dose 13.119 MLS/HR; Start 08/09/18 at 06:00 Propofol 100 ml @ 2.1 mls/hr PER PROTOCOL IV Last administered on 08/12/18at 23:36; Admin Dose 8.4 MLS/HR; Start 08/09/18 at 06:30 Vecuronium [place] 100 mg/ Dextrose 100 ml @ 4.2 mls/hr [id number] IV Last administered on 08/10/18at 06:06; Admin Dose 0 MLS/HR; Start 08/09/18 at 06:07 Acetaminophen (Tylenol Supp) 650 mg Q4H PRN [place] TEMP > 37C; Start 08/09/18 at 06:30 Acetaminophen (Tylenol Liquid) 650 mg Q4H PRN PO TEMP > 37C Last administered on 08/12/18 20:49; Admin Dose 650 MG; Start 08/09/18 at 06:30 Meperidine HCl (Demerol) 12.5 mg Q4H PRN IV AGITATION; Start 08/09/18 at 06:30 Meperidine HCl (Demerol) 25 mg Q4H PRN IV MUSCLE SPASMS; Start 08/09/18 at 06:30 Eye Lubricant (Akwa Oint) 1 applic Q6 BOTH EYES Last administered on 08/13/18 06:01; Admin Dose 1 APPLIC; Start 08/09/18 at 12:00 Eye Lubricant (Artificial Tears Oph) 2 drop Q6 BOTH EYES Last administered on 08/13/18 06:01; Admin Dose 2 DROP; Start 08/09/18 at 12:00 Vasopressin 60 unit/Dextrose 60 ml @ 0 mls/hr Q12H IV Last administered on 08/09/18 16:05; Admin Dose 2.4 MLS/HR; Start 08/09/18 at 11:00 Aspirin (Aspirin) 81 mg DAILY PO Last administered on 08/12/18 09:35; Admin Dose 81 MG; Start 08/10/18 at 09:00 Atorvastatin Calcium (Lipitor) 20 mg HS PO Last administered on 08/12/18 20:49; Admin Dose 20 MG; Start 08/09/18 at 21:00 Phenylephrine HCl 80 mg/Dextrose 250 ml @ 18.75 mls/ hr TITRATE IV Last administered on 08/09/18 16:08; Admin Dose 37.5 MLS/HR; Start 08/09/18 at 16:00 Ondansetron HCl (Zofran Inj) 4 mg Q4H PRN IV nausea; Start 08/10/18 at 09:30 Vancomycin/Sodium Chloride 250 ml @ 125 mls/hr Q48H IVPB Last administered on 08/11/18 09:52; Admin Dose 125 MLS/HR; Start 08/11/18 at 09:00 Insulin Aspart (Novolog Insulin Pen) NOVOLOG *MILD* ALGORI... Q4 SC Last administered on 08/12/18 17:12; Admin Dose 5 UNIT; Start 08/11/18 at 13:00 Miscellaneous Information 1 ea NOTE XX ; Start 08/11/18 at 10:00 Glucose (Glutose) 15 gm Q15M PRN PO DECREASED GLUCOSE; Start 08/11/18 at 10:00 Glucose (Glutose) 22.5 gm Q15M PRN PO DECREASED GLUCOSE; Start 08/11/18 at 10:00 Dextrose (D50w Syringe) 25 ml Q15M PRN IV DECREASED GLUCOSE; Start 08/11/18 at 10:00 Dextrose (D50w Syringe) 50 ml Q15M PRN IV DECREASED GLUCOSE; Start 08/11/18 at 10:00 Glucagon (Glucagen) 1 mg Q15M PRN IM DECREASED GLUCOSE; Start 08/11/18 at 10:00 Glucose (Glutose) 15 gm Q15M PRN BUCCAL DECREASED GLUCOSE; Start 08/11/18 at 10:00 Fentanyl 100 ml @ 2.5 mls/hr TITRATE IV Last administered on 08/12/18at 22:49; Admin Dose 5 MLS/HR; Start 08/11/18 at 11:00 Famotidine (Pepcid) 20 mg DAILY GTB Last administered on 08/12/18at 09:34; Admin Dose 20 MG; Start 08/12/18 at 09:00 Cefepime HCl 50 ml @ 100 mls/hr Q24H IVPB Last administered on 08/12/18at 13:08; Admin Dose 100 MLS/HR; Start 08/11/18 at 14:00 Diagnostic Test (Pha) (Accu-Chek) 1 ea Q1H XX Last administered on 08/13/18at 05:52; Admin Dose 1 EA; Start 08/12/18 at 18:00 Insulin Human Regular 100 unit/ Sodium Chloride 100 ml @ 0 mls/hr PER PROTOCOL IV Last administered on 08/12/18at 18:34; Admin Dose 3 MLS/HR; Start 08/12/18 at 18:00 Insulin Glargine (Lantus) 25 units DAILY@0800 SC ; Start 08/13/18 at 08:00 ДМИТРИЙ BOWERS Aug 13, 2018 06:08
--- NOTE | 2018-08-13 06:16 | NUR ---
DR. HIRSCH NOTIFIED OF ABG LABS, NO CHANGES AT THIS TIME. WILL CONTINUE TO MONITOR.
--- NOTE | 2018-08-13 07:36 | NUR ---
VANCOMYCIN PER PHARMACY NOTE SIRISHA TR TODAY = 12.7 OK TO GIVE VANCOMYCIN 750MG IV Q48HR FOR NOW. PHARMACY WILL FOLLOW. THANK YOU.
[2018-08-13] MEDS ORDERED: INSULIN GLARGINE [LANTus] (100 UNITS/ML) SYG SC SCH (08:00)
[2018-08-13] MEDS: ASPIRIN 81 MG TAB PO SCH (08:28)
[2018-08-13] MEDS: ACETAMINOPHEN 650MG/20.3ML CUP PO PRN (08:28)
[2018-08-13] MEDS: FAMOTIDINE 20 MG TAB GTB SCH (08:28)
[2018-08-13] MEDS: VANCOMYCIN 750 MG (PMX) 250 ML IVPB SCH (08:29)
--- NOTE | 2018-08-13 09:28 | CONS ---
Assessment/Plan Cardiology NYHA: IV Heart Failure Type: Both Assessment/Plan Hospital Course (Demo Recall) 1. Acute non-ST elevation myocardial infarction.-- lateral ST depressions, inferior Q waves 2. Acute respiratory failure. 3. Septic versus cardiogenic shock. 4. Severe metabolic acidosis. 5. Poorly controlled type 2 diabetes mellitus. 6. History of chronic kidney disease. 7. Hyperlipidemia. 8. Acute CHF 9. Severe Aortic stenosis with EF 55% 10. Prognosis is guarded. -continue abx -continue pressor support -no acei/bb due to hypotension -lasix once bp better -continue asa, statin further management depending on hospital course Consultation Date/Type/Reason Admit Date/Time Aug 09, 2018 at 01:10 Initial Consult Date 08/10/18 Type of Consult Cardiology Requesting Provider: JAYE ZHAO MD Date/Time of Note DATE: 08/13/18 TIME: 09:27 24 HR Interval Summary Free Text/Dictation remains intubated on pressors Exam/Review of Systems Vital Signs Vitals Vital Signs Date Temp Pulse Resp B/P (MAP) Pulse Ox O2 O2 Flow FiO2 Time Delivery Rate 08/13/18 100.2 08:28 08/13/18 98 43 114/59 100 06:15 (77) 08/13/18 [place] 06:00 l Ventilato r 08/13/18 100 05:45 Intake and Output 08/12/18 08/12/18 08/13/18 1414:59 22:59 06:59 IntakeIntake Total 890.041 ml 689.561 ml 600.88 ml OutputOutput Total 240 ml 372 ml 304 ml BalanceBalance 650.041 ml 317.561 ml 296.88 ml Exam Exam intubated Respiratory: crackles/rales Cardiovascular: regular rate and rhythm Extremities: edema (trace) Labs Result Diagram: 08/13/18 0430 08/13/18 0430 Results 24hrs Laboratory Tests Test 08/12/18 09:32 08/12/18 12:36 08/12/18 17:10 08/12/18 18:32 Bedside Glucose 266 H 286 H 314 H 277 H Test 08/12/18 20:46 08/12/18 21:49 08/12/18 22:45 08/12/18 23:48 Bedside Glucose 235 H 230 H 216 203 Test 08/13/18 00:49 08/13/18 01:45 08/13/18 02:46 08/13/18 03:48 Bedside Glucose 212 198 162 143 Test 08/13/18 04:30 08/13/18 04:42 08/13/18 05:52 08/13/18 06:00 White Blood Count 19.8 #H Red Blood Count 3.67 L Hemoglobin 7.9 L Hematocrit 25.3 L Mean Corpuscular 68.9 L Volume Mean Corpuscular 21.5 L Hemoglobin Mean Corpuscular 31.2 L Hemoglobin Concen t Red Cell 15.3 H Distribution Width Platelet Count 159 Mean Platelet 13.1 H Volume Immature 3.100 H Granulocytes % Neutrophils % 80.9 H Lymphocytes % 11.2 L Monocytes % 2.4 Eosinophils % 2.2 Basophils % 0.2 Nucleated Red 1.2 H Blood Cells % Immature 0.610 H Granulocytes # Neutrophils # 16.0 H Lymphocytes # 2.2 Monocytes # 0.5 Eosinophils # 0.4 Basophils # 0.0 Nucleated Red 0.2 H Blood Cells # Sodium Level 150 H Potassium Level 3.8 Chloride Level 110 Carbon Dioxide 31 Level Anion Gap 9 Blood Urea 61 H Nitrogen Creatinine 3.12 H Est Glomerular Filtrat Rate mL/min Glucose Level 150 Calcium Level 7.7 L Random Vancomycin 12.7 Level Bedside Glucose 139 153 Blood Gas Blood arterial Specimen Source Arterial Blood 08/13/2018 5:25:1 Date Drawn 9 AM Arterial Blood pH 7.452 H (Temp corrected) Arterial Blood 38.8 pCO2 (Temp correct) Arterial Blood 50.3 *L pO2 (Temp corrected) Arterial Blood 26.5 H HCO3 Arterial Blood 2.4 Base Excess Arterial Blood 84.9 L Oxygen Saturation Francois Test ACCEPTAB Arterial Blood Right Radial Gas Puncture Site Arterial 0.3 Blood Carboxyhemo globin Arterial Blood 0.4 Methemoglobin Blood Gas A-a O2 407.1 H Differential Oxyhemoglobin 84.3 L Percent Blood Gas 37.0 Temperature Blood Gas 14.0 Respiration Rate Blood Gas Actual 26 Respiration Rate Blood Gas VENT - AC Modality FiO2 70.0 Blood Gas Tidal 450.0 Volume Blood Gas Low 12.0 PEEP Setting Blood Gas [employer] Critical Value Read Back Blood Gas MA Notified Whom Blood Gas 08/13/2018 5:38:2 Notified Time 4 AM Test 08/13/18 06:53 08/13/18 08:20 Bedside Glucose 149 158 Medications Medications Current Medications Vancomycin HCl (Vanco Iv Per Pharmacy) VANCOMYCIN PER PHARMACY PER PROTOCOL XX ; Start 08/09/18 at 05:00 Norepinephrine 250 ml @ 1.875 mls/ hr TITRATE IV Last administered on 08/12/18at 13:14; Admin Dose 13.119 MLS/HR; Start 08/09/18 at 06:00 Propofol 100 ml @ 2.1 mls/hr PER PROTOCOL IV Last administered on 08/12/18at 23:36; Admin Dose 8.4 MLS/HR; Start 08/09/18 at 06:30 Vecuronium [place] 100 mg/ Dextrose 100 ml @ 4.2 mls/hr [id number] IV Last administered on 08/10/18at 06:06; Admin Dose 0 MLS/HR; Start 08/09/18 at 06:07 Acetaminophen (Tylenol Supp) 650 mg Q4H PRN [place] TEMP > 37C; Start 08/09/18 at 06:30 Acetaminophen (Tylenol Liquid) 650 mg Q4H PRN PO TEMP > 37C Last administered on 08/13/18at 08:28; Admin Dose 650 MG; Start 08/09/18 at 06:30 Meperidine HCl (Demerol) 12.5 mg Q4H PRN IV AGITATION; Start 08/09/18 at 06:30 Meperidine HCl (Demerol) 25 mg Q4H PRN IV MUSCLE SPASMS; Start 08/09/18 at 06:30 Eye Lubricant (Akwa Oint) 1 applic Q6 BOTH EYES Last administered on 08/13/18at 06:01; Admin Dose 1 APPLIC; Start 08/09/18 at 12:00 Eye Lubricant (Artificial Tears Oph) 2 drop Q6 BOTH EYES Last administered on 08/13/18at 06:01; Admin Dose 2 DROP; Start 08/09/18 at 12:00 Vasopressin 60 unit/Dextrose 60 ml @ 0 mls/hr Q12H IV Last administered on 08/09/18at 16:05; Admin Dose 2.4 MLS/HR; Start 08/09/18 at 11:00 Aspirin (Aspirin) 81 mg DAILY PO Last administered on 08/13/18at 08:28; Admin Dose 81 MG; Start 08/10/18 at 09:00 Atorvastatin Calcium (Lipitor) 20 mg HS PO Last administered on 08/12/18at 20:49; Admin Dose 20 MG; Start 08/09/18 at 21:00 Phenylephrine HCl 80 mg/Dextrose 250 ml @ 18.75 mls/ hr TITRATE IV Last administered on 08/09/18at 16:08; Admin Dose 37.5 MLS/HR; Start 08/09/18 at 16:00 Ondansetron HCl (Zofran Inj) 4 mg Q4H PRN IV nausea; Start 08/10/18 at 09:30 Vancomycin/Sodium Chloride 250 ml @ 125 mls/hr Q48H IVPB Last administered on 08/13/18at 08:29; Admin Dose 125 MLS/HR; Start 08/11/18 at 09:00 Insulin Aspart (Novolog Insulin Pen) NOVOLOG *MILD* ALGORI... Q4 SC Last administered on 08/12/18at 17:12; Admin Dose 5 UNIT; Start 08/11/18 at 13:00 Miscellaneous Information 1 ea NOTE XX ; Start 08/11/18 at 10:00 Glucose (Glutose) 15 gm Q15M PRN PO DECREASED GLUCOSE; Start 08/11/18 at 10:00 Glucose (Glutose) 22.5 gm Q15M PRN PO DECREASED GLUCOSE; Start 08/11/18 at 10:00 Dextrose (D50w Syringe) 25 ml Q15M PRN IV DECREASED GLUCOSE; Start 08/11/18 at 10:00 Dextrose (D50w Syringe) 50 ml Q15M PRN IV DECREASED GLUCOSE; Start 08/11/18 at 10:00 Glucagon (Glucagen) 1 mg Q15M PRN IM DECREASED GLUCOSE; Start 08/11/18 at 10:00 Glucose (Glutose) 15 gm Q15M PRN BUCCAL DECREASED GLUCOSE; Start 08/11/18 at 10:00 Fentanyl 100 ml @ 2.5 mls/hr TITRATE IV Last administered on 08/12/18at 22:49; Admin Dose 5 MLS/HR; Start 08/11/18 at 11:00 Famotidine (Pepcid) 20 mg DAILY GTB Last administered on 08/13/18at 08:28; Admin Dose 20 MG; Start 08/12/18 at 09:00 Cefepime HCl 50 ml @ 100 mls/hr Q24H IVPB Last administered on 08/12/18at 13:08; Admin Dose 100 MLS/HR; Start 08/11/18 at 14:00 Diagnostic Test (Pha) (Accu-Chek) 1 ea Q1H XX Last administered on 08/13/18at 09:04; Admin Dose 1 EA; Start 08/12/18 at 18:00 Insulin Human Regular 100 unit/ Sodium Chloride 100 ml @ 0 mls/hr PER PROTOCOL IV Last administered on 08/12/18at 18:34; Admin Dose 3 MLS/HR; Start 08/12/18 at 18:00 Insulin Glargine (Lantus) 25 units DAILY@0800 SC Last administered on 08/13/18 08:43; Admin Dose 25 UNITS; Start 08/13/18 at 08:00 MIGUELINA NI MD Aug 13, 2018 09:28
--- NOTE | 2018-08-13 10:18 | CONS ---
Assessment/Plan Assessment/Plan Assessment/Plan (Daily) Ventilator setting; AC of 14, tidal volume 450, PEEP of 10, 100% FiO2. Patient is currently on propofol at 20 mics per kilogram per minute, Levophed 5 mics per minute, fentanyl 50 mics per hour. Assessment recommendations; 1. Patient admitted with cardiac arrest status post hypothermia protocol with ensuing severe anoxic encephalopathy. 2. Severe bilateral pneumonia, with ARDS. Likely aspiration. Currently on appropriate antimicrobial regimen. Without any interval improvement in oxygenation status. 3. Chronic renal insufficiency. 4. Diabetes. 5. Persistent hypotension due to acute MS and cardiomyopathy. 6. Anemia and thrombocytopenia. Continue current supportive care. Increase PEEP to 12. To obtain follow-up chest x-ray. I did have a detailed discussion with the patient's granddaughter is at bedside and answered all their questions. Prognosis is very poor. 35 minutes of critical care time was spent evaluating the patient. Consultation Date/Type/Reason Admit Date/Time Aug 09, 2018 at 01:10 Initial Consult Date Type of Consult Patient's condition is critical. Currently on rewarming phase of hypothermia protocol. Patient has remained hemodynamically stable. General exam; elderly male, orally intubated, sedated. Currently no distress. Requesting Provider: JAYE ZHAO MD Date/Time of Note DATE: 08/13/18 TIME: 10:16 24 HR Interval Summary Free Text/Dictation Patient's condition remains critical. Remains hypotensive requiring low-dose Levophed. Remains profoundly hypoxemic requiring 100% FiO2. General exam; elderly female, orally intubated, sedated, currently in no distress. Exam/Review of Systems Exam Vitals Vital Signs Date Temp Pulse Resp B/P (MAP) Pulse Ox O2 O2 Flow FiO2 Time Delivery Rate 08/13/18 100.2 08:28 08/13/18 96 08:00 08/13/18 43 114/59 100 06:15 (77) 08/13/18 Mechanica 06:00 l Ventilato r 08/13/18 100 05:45 Intake and Output 08/12/18 08/12/18 08/13/18 1515:00 23:00 07:00 IntakeIntake Total 780.382 ml 697.58 ml 601.88 ml OutputOutput Total 240 ml 380 ml 304 ml BalanceBalance 540.382 ml 317.58 ml 297.88 ml Exam HEENT exam; supple neck, positive JVD. No lymphadenopathy. Midline trachea. No thyromegaly. Patient has fair dentition. Orally intubated. There is mild bilateral subconjunctival edema. Chest exam; bilateral crackles. S1-S2 audible, no murmurs. Regular rhythm. Abdomen exam; soft, no organomegaly. Bowel sounds are audible. Extremity exam; trace edema. FITNESS PLAN COORDINATOR exam; patient is sedated. Results Result Diagram: 08/13/18 0430 08/13/18 0430 Results 24hrs Laboratory Tests Test 08/12/18 12:36 08/12/18 17:10 08/12/18 18:32 08/12/18 20:46 Bedside Glucose 286 H 314 H 277 H 235 H Test 08/12/18 21:49 08/12/18 22:45 08/12/18 23:48 08/13/18 00:49 Bedside Glucose 230 H 216 203 212 Test 08/13/18 01:45 08/13/18 02:46 08/13/18 03:48 08/13/18 04:30 Bedside Glucose 198 162 143 White Blood Count 19.8 #H Red Blood Count 3.67 L Hemoglobin 7.9 L Hematocrit 25.3 L Mean Corpuscular 68.9 L Volume Mean Corpuscular 21.5 L Hemoglobin Mean Corpuscular 31.2 L Hemoglobin Concen t Red Cell 15.3 H Distribution Width Platelet Count 159 Mean Platelet 13.1 H Volume Immature 3.100 H Granulocytes % Neutrophils % 80.9 H Lymphocytes % 11.2 L Monocytes % 2.4 Eosinophils % 2.2 Basophils % 0.2 Nucleated Red 1.2 H Blood Cells % Immature 0.610 H Granulocytes # Neutrophils # 16.0 H Lymphocytes # 2.2 Monocytes # 0.5 Eosinophils # 0.4 Basophils # 0.0 Nucleated Red 0.2 H Blood Cells # Sodium Level 150 H Potassium Level 3.8 Chloride Level 110 Carbon Dioxide 31 Level Anion Gap 9 Blood Urea 61 H Nitrogen Creatinine 3.12 H Est Glomerular Filtrat Rate mL/min Glucose Level 150 Calcium Level 7.7 L Random Vancomycin 12.7 Level Test 08/13/18 04:42 08/13/18 05:52 08/13/18 06:00 08/13/18 06:53 Bedside Glucose 139 153 149 Blood Gas Blood arterial Specimen Source Arterial Blood 08/13/2018 5:25:1 Date Drawn 9 AM Arterial Blood pH 7.452 H (Temp corrected) Arterial Blood 38.8 pCO2 (Temp correct) Arterial Blood 50.3 *L pO2 (Temp corrected) Arterial Blood 26.5 H HCO3 Arterial Blood 2.4 Base Excess Arterial Blood 84.9 L Oxygen Saturation Francois Test ACCEPTAB Arterial Blood Right Radial Gas Puncture Site Arterial 0.3 Blood Carboxyhemo globin Arterial Blood 0.4 Methemoglobin Blood Gas A-a O2 407.1 H Differential Oxyhemoglobin 84.3 L Percent Blood Gas 37.0 Temperature Blood Gas 14.0 Respiration Rate Blood Gas Actual 26 Respiration Rate Blood Gas VENT - AC Modality FiO2 70.0 Blood Gas Tidal 450.0 Volume Blood Gas Low 12.0 PEEP Setting Blood Gas CJOO DIRECTOR LEARNING Critical Value Read Back Blood Gas MA Notified Whom Blood Gas 08/13/2018 5:38:2 Notified Time 4 AM Test 08/13/18 08:20 08/13/18 09:54 Bedside Glucose 158 156 Medications Medication Current Medications Vancomycin HCl (Vanco Iv Per Pharmacy) VANCOMYCIN PER PHARMACY PER PROTOCOL XX ; Start 08/09/18 at 05:00 Norepinephrine 250 ml @ 1.875 mls/ hr TITRATE IV Last administered on 08/12/18at 13:14; Admin Dose 13.119 MLS/HR; Start 08/09/18 at 06:00 Propofol 100 ml @ 2.1 mls/hr PER PROTOCOL IV Last administered on 08/12/18at 23:36; Admin Dose 8.4 MLS/HR; Start 08/09/18 at 06:30 Vecuronium [place] 100 mg/ Dextrose 100 ml @ 4.2 mls/hr [id number] IV Last administered on 08/10/18at 06:06; Admin Dose 0 MLS/HR; Start 08/09/18 at 06:07 Acetaminophen (Tylenol Supp) 650 mg Q4H PRN [place] TEMP > 37C; Start 08/09/18 at 0 6:30 Acetaminophen (Tylenol Liquid) 650 mg Q4H PRN PO TEMP > 37C Last administered on 08/13/18at 08:28; Admin Dose 650 MG; Start 08/09/18 at 06:30 Meperidine HCl (Demerol) 12.5 mg Q4H PRN IV AGITATION; Start 08/09/18 at 06:30 Meperidine HCl (Demerol) 25 mg Q4H PRN IV MUSCLE SPASMS; Start 08/09/18 at 06:30 Eye Lubricant (Akwa Oint) 1 applic Q6 BOTH EYES Last administered on 08/13/18at 06:01; Admin Dose 1 APPLIC; Start 08/09/18 at 12:00 Eye Lubricant (Artificial Tears Oph) 2 drop Q6 BOTH EYES Last administered on 08/13/18at 06:01; Admin Dose 2 DROP; Start 08/09/18 at 12:00 Vasopressin 60 unit/Dextrose 60 ml @ 0 mls/hr Q12H IV Last administered on 08/09/18at 16:05; Admin Dose 2.4 MLS/HR; Start 08/09/18 at 11:00 Aspirin (Aspirin) 81 mg DAILY PO Last administered on 08/13/18at 08:28; Admin Do se 81 MG; Start 08/10/18 at 09:00 Atorvastatin Calcium (Lipitor) 20 mg HS PO Last administered on 08/12/18at 20:49; Admin Dose 20 MG; Start 08/09/18 at 21:00 Phenylephrine HCl 80 mg/Dextrose 250 ml @ 18.75 mls/ hr TITRATE IV Last administered on 08/09/18at 16:08; Admin Dose 37.5 MLS/HR; Start 08/09/18 at 16:00 Ondansetron HCl (Zofran Inj) 4 mg Q4H PRN IV nausea; Start 08/10/18 at 09:30 Vancomycin/Sodium Chloride 250 ml @ 125 mls/hr Q48H IVPB Last administered on 08/13/18at 08:29; Admin Dose 125 MLS/HR; Start 08/11/18 at 09:00 Insulin Aspart (Novolog Insulin Pen) NOVOLOG *MILD* ALGORI... Q4 SC Last administered on 08/12/18at 17:12; Admin Dose 5 UNIT; Start 08/11/18 at 13:00 Miscellaneous Information 1 ea NOTE XX ; Start 08/11/18 at 10:00 Glucose (Glutose) 15 gm Q15M PRN PO DECREASED GLUCOSE; Start 08/11/18 at 10:00 Glucose (Glutose) 22.5 gm Q15M PRN PO DECREASED GLUCOSE; Start 08/11/18 at 10:00 Dextrose (D50w Syringe) 25 ml Q15M PRN IV DECREASED GLUCOSE; Start 08/11/18 at 10:00 Dextrose (D50w Syringe) 50 ml Q15M PRN IV DECREASED GLUCOSE; Start 08/11/18 at 10:00 Glucagon (Glucagen) 1 mg Q15M PRN IM DECREASED GLUCOSE; Start 08/11/18 at 10:00 Glucose (Glutose) 15 gm Q15M PRN BUCCAL DECREASED GLUCOSE; Start 08/11/18 at 10:00 Fentanyl 100 ml @ 2.5 mls/hr TITRATE IV Last administered on 08/12/18at 22:49; Admin Dose 5 MLS/HR; Start 08/11/18 at 11:00 Famotidine (Pepcid) 20 mg DAILY GTB Last administered on 08/13/18at 08:28; Admin Dose 20 MG; Start 08/12/18 at 09:00 Cefepime HCl 50 ml @ 100 mls/hr Q24H IVPB Last administered on 08/12/18at 13:08; Admin Dose 100 MLS/HR; Start 08/11/18 at 14:00 Diagnostic Test (Pha) (Accu-Chek) 1 ea Q1H XX Last administered on 08/13/18at 09 :56; Admin Dose 1 EA; Start 08/12/18 at 18:00 Insulin Human Regular 100 unit/ Sodium Chloride 100 ml @ 0 mls/hr PER PROTOCOL IV Last administered on 08/12/18at 18:34; Admin Dose 3 MLS/HR; Start 08/12/18 at 18:00 Insulin Glargine (Lantus) 25 units DAILY@0800 SC Last administered on 08/13/18at 08:43; Admin Dose 25 UNITS; Start 08/13/18 at 08:00 WENDY STEVENSON Aug 13, 2018 10:18
[2018-08-13] MEDS ORDERED: SOD CHLORIDE 0.9% 500 ML IV ONE (11:00)
[2018-08-13] MEDS ORDERED: ALBUMIN HUMAN 25% 100 ML IV ONE (11:00)
[2018-08-13] MEDS ORDERED: FUROSEMIDE 40 MG INJ IV SCH (11:00)
[2018-08-13] MEDS: VASOPRESSIN 60 UNIT in DEXTROSE 5% 57 ML IV SCH (11:00)
[2018-08-13] MEDS: PROPOFOL 100 ML IV SCH ×2 (12:20→20:14)
[2018-08-13] MEDS: CEFEPIME 1GM/50 ML (PMX) 50 ML IVPB SCH (14:35)
--- NOTE | 2018-08-13 15:19 | CONS ---
Assessment/Plan Assessment/Plan Hospital Course (Demo Recall) Patient remains noncommunicative with worsening respiratory status, on high PEEP and FiO2. She is having ongoing fevers, T-max 100.2 WBC 19.8 H&H 7.9 and 25.3 platelets 159 neutrophils 80.9 BUN 61 creatinine 3.12 Chest x-ray this morning revealed CHF, mildly improved Microbiology: Urine culture growing gram-negative rods less than 10,000 colonies, blood culture remain negative Renal ultrasound showed mild left-sided hydronephrosis. Indwelling's: Endotracheal tube, NG tube, Telles catheter, right femoral triple- lumen catheter Antimicrobials: Vancomycin, cefepime Physical examination: Obese ill-appearing elderly woman who is unresponsive and comfortable on vent. Head atraumatic normocephalic sclera nonicteric. Neck is supple. Chest rise symmetrical, breath sounds diminished bases. Heart: S1-S2. Abdomen soft, bowel sounds hypoactive. Extremities cyanotic with trace edema Assessment: 1. Severe sepsis with shock, possibly cardiogenic 2. Status post cardiopulmonary arrest 3. Acute respiratory failure, intubated 4. Pneumonia, possibly aspirated/ARDS 5. Encephalopathy, rule out anoxic brain injury 6. Diabetes 7. Acute renal failure Plan: Patient is doing poorly with worsening respiratory status and worsening renal function, we will change antibiotics to meropenem and Zyvox, follow pulmonary, cardiology and neurology recommendations, patient is status post EGD yesterday per report, will await for reading Discussed with son at bedside Consultation Date/Type/Reason Admit Date/Time Aug 09, 2018 at 01:10 Initial Consult Date 08/10/18 Type of Consult id Requesting Provider: JAYE ZHAO MD Date/Time of Note DATE: 08/13/18 TIME: 15:17 Exam/Review of Systems Exam Vitals Vital Signs Date Temp Pulse Resp B/P (MAP) Pulse Ox O2 O2 Flow FiO2 Time Delivery Rate 08/13/18 105 12:00 08/13/18 19 100/52 96 10:45 (68) 08/13/18 Mechanica 10:30 l Ventilato r 08/13/18 100.0 10:15 08/13/18 100 08:00 Intake and Output 08/12/18 08/12/18 08/13/18 1515:00 23:00 07:00 IntakeIntake Total 780.382 ml 697.58 ml 601.88 ml OutputOutput Total 240 ml 380 ml 304 ml BalanceBalance 540.382 ml 317.58 ml 297.88 ml Results Result Diagram: 08/13/18 0430 08/13/18 0430 Results 24hrs Laboratory Tests Test 08/12/18 17:10 08/12/18 18:32 08/12/18 20:46 08/12/18 21:49 Bedside Glucose 314 H 277 H 235 H 230 H Test 08/12/18 22:45 08/12/18 23:48 08/13/18 00:49 08/13/18 01:45 Bedside Glucose 216 203 212 198 Test 08/13/18 02:46 08/13/18 03:48 08/13/18 04:30 08/13/18 04:42 Bedside Glucose 162 143 139 White Blood Count 19.8 #H Red Blood Count 3.67 L Hemoglobin 7.9 L Hematocrit 25.3 L Mean Corpuscular 68.9 L Volume Mean Corpuscular 21.5 L Hemoglobin Mean Corpuscular 31.2 L Hemoglobin Concen t Red Cell 15.3 H Distribution Width Platelet Count 159 Mean Platelet 13.1 H Volume Immature 3.100 H Granulocytes % Neutrophils % 80.9 H Lymphocytes % 11.2 L Monocytes % 2.4 Eosinophils % 2.2 Basophils % 0.2 Nucleated Red 1.2 H Blood Cells % Immature 0.610 H Granulocytes # Neutrophils # 16.0 H Lymphocytes # 2.2 Monocytes # 0.5 Eosinophils # 0.4 Basophils # 0.0 Nucleated Red 0.2 H Blood Cells # Sodium Level 150 H Potassium Level 3.8 Chloride Level 110 Carbon Dioxide 31 Level Anion Gap 9 Blood Urea 61 H Nitrogen Creatinine 3.12 H Est Glomerular Filtrat Rate mL/min Glucose Level 150 Calcium Level 7.7 L Random Vancomycin 12.7 Level Test 08/13/18 05:52 08/13/18 06:00 08/13/18 06:53 08/13/18 08:20 Bedside Glucose 153 149 158 Blood Gas Blood arterial Specimen Source Arterial Blood 08/13/2018 5:25:1 Date Drawn 9 AM Arterial Blood pH 7.452 H (Temp corrected) Arterial Blood 38.8 pCO2 (Temp correct) Arterial Blood 50.3 *L pO2 (Temp corrected) Arterial Blood 26.5 H HCO3 Arterial Blood 2.4 Base Excess Arterial Blood 84.9 L Oxygen Saturation Fracnois Test ACCEPTAB Arterial Blood Right Radial Gas Puncture Site Arterial 0.3 Blood Carboxyhemo globin Arterial Blood 0.4 Methemoglobin Blood Gas A-a O2 407.1 H Differential Oxyhemoglobin 84.3 L Percent Blood Gas 37.0 Temperature Blood Gas 14.0 Respiration Rate Blood Gas Actual 26 Respiration Rate Blood Gas VENT - AC Modality FiO2 70.0 Blood Gas Tidal 450.0 Volume Blood Gas Low 12.0 PEEP Setting Blood Gas CJOO MEDICAL AIDE Critical Value Read Back Blood Gas JAZZY Notified Whom Blood Gas 08/13/2018 5:38:2 Notified Time 4 AM Test 08/13/18 09:54 08/13/18 11:46 08/13/18 12:10 08/13/18 14:26 Bedside Glucose 156 161 155 Lab Scanned REFERENCE LAB Report Medications Medication Current Medications Vancomycin HCl (Vanco Iv Per Pharmacy) VANCOMYCIN PER PHARMACY PER PROTOCOL XX ; Start 08/09/18 at 05:00 Norepinephrine 250 ml @ 1.875 mls/ hr TITRATE IV Last administered on 08/12/18at 13:14; Admin Dose 13.119 MLS/HR; Start 08/09/18 at 06:00 Propofol 100 ml @ 2.1 mls/hr PER PROTOCOL IV Last administered on 08/13/18at 12:20; Admin Dose 8.4 MLS/HR; Start 08/09/18 at 06:30 Vecuronium [place] 100 mg/ Dextrose 100 ml @ 4.2 mls/hr [id number] IV Last administered on 08/10/18at 06:06; Admin Dose 0 MLS/HR; Start 08/09/18 at 06:07 Acetaminophen (Tylenol Supp) 650 mg Q4H PRN [place] TEMP > 37C; Start 08/09/18 at 06:30 Acetaminophen (Tylenol Liquid) 650 mg Q4H PRN PO TEMP > 37C Last administered on 08/13/18at 08:28; Admin Dose 650 MG; Start 08/09/18 at 06:30 Meperidine HCl (Demerol) 12.5 mg Q4H PRN IV AGITATION; Start 08/09/18 at 06:30 Meperidine HCl (Demerol) 25 mg Q4H PRN IV MUSCLE SPASMS; Start 08/09/18 at 06:30 Eye Lubricant (Akwa Oint) 1 applic Q6 BOTH EYES Last administered on 08/13/18at 12:18; Admin Dose 1 APPLIC; Start 08/09/18 at 12:00 Eye Lubricant (Artificial Tears Oph) 2 drop Q6 BOTH EYES Last administered on 08/13/18at 12:18; Admin Dose 2 DROP; Start 08/09/18 at 12:00 Vasopressin 60 unit/Dextrose 60 ml @ 0 mls/hr Q12H IV Last administered on 08/09/18at 16:05; Admin Dose 2.4 MLS/HR; Start 08/09/18 at 11:00 Aspirin (Aspirin) 81 mg DAILY PO Last administered on 08/13/18at 08:28; Admin Dose 81 MG; Start 08/10/18 at 09:00 Atorvastatin Calcium (Lipitor) 20 mg HS PO Last administered on 08/12/18at 20:49; Admin Dose 20 MG; Start 08/09/18 at 21:00 Phenylephrine HCl 80 mg/Dextrose 250 ml @ 18.75 mls/ hr TITRATE IV Last administered on 08/09/18at 16:08; Admin Dose 37.5 MLS/HR; Start 08/09/18 at 16:00 Ondansetron HCl (Zofran Inj) 4 mg Q4H PRN IV nausea; Start 08/10/18 at 09:30 Vancomycin/Sodium Chloride 250 ml @ 125 mls/hr Q48H IVPB Last administered on 08/13/18at 08:29; Admin Dose 125 MLS/HR; Start 08/11/18 at 09:00 Insulin Aspart (Novolog Insulin Pen) NOVOLOG *MILD* ALGORI... Q4 SC Last administered on 08/12/18at 17:12; Admin Dose 5 UNIT; Start 08/11/18 at 13:00 Miscellaneous Information 1 ea NOTE XX ; Start 08/11/18 at 10:00 Glucose (Glutose) 15 gm Q15M PRN PO DECREASED GLUCOSE; Start 08/11/18 at 10:00 Glucose (Glutose) 22.5 gm Q15M PRN PO DECREASED GLUCOSE; Start 08/11/18 at 10:00 Dextrose (D50w Syringe) 25 ml Q15M PRN IV DECREASED GLUCOSE; Start 08/11/18 at 10:00 Dextrose (D50w Syringe) 50 ml Q15M PRN IV DECREASED GLUCOSE; Start 08/11/18 at 10:00 Glucagon (Glucagen) 1 mg Q15M PRN IM DECREASED GLUCOSE; Start 08/11/18 at 10:00 Glucose (Glutose) 15 gm Q15M PRN BUCCAL DECREASED GLUCOSE; Start 08/11/18 at 10:00 Fentanyl 100 ml @ 2.5 mls/hr TITRATE IV Last administered on 08/12/18at 22:49; Admin Dose 5 MLS/HR; Start 08/11/18 at 11:00 Famotidine (Pepcid) 20 mg DAILY GTB Last administered on 08/13/18at 08:28; Admin Dose 20 MG; Start 08/12/18 at 09:00 Cefepime HCl 50 ml @ 100 mls/hr Q24H IVPB Last administered on 08/13/18at 14:35; Admin Dose 100 MLS/HR; Start 08/11/18 at 14:00 Diagnostic Test (Pha) (Accu-Chek) 1 ea Q1H XX Last administered on 08/13/18at 14:35; Admin Dose 1 EA; Start 08/12/18 at 18:00 Insulin Human Regular 100 unit/ Sodium Chloride 100 ml @ 0 mls/hr PER PROTOCOL IV Last administered on 08/12/18at 18:34; Admin Dose 3 MLS/HR; Start 08/12/18 at 18:00 Insulin Glargine (Lantus) 25 units DAILY@0800 SC Last administered on 08/13/18at 08:43; Admin Dose 25 UNITS; Start 08/13/18 at 08:00 Furosemide (Lasix) 40 mg ONCE IV Last administered on 08/13/18at 12:31; Admin Dose 40 MG; Start 08/13/18 at 11:00; Stop 08/13/18 at 17:00 ANGELO RIOS NP Aug 13, 2018 15:19
--- NOTE | 2018-08-13 17:36 | CONS ---
DATE OF ADMISSION: 08/09/2018 DATE OF CONSULTATION: HISTORY OF PRESENT ILLNESS: The patient is 77-year-old lady with acute onset of loss of consciousnes s, cardiopulmonary arrest, anoxic encephalopathy. The patient is unresponsive since I saw her. She is having respiratory failure and intubated status post hypothermia protocol. The patient has multip le medical problems prior to admission which include diabetes, hypertension, neuropathy. The patient is accompanied by her granddaughter and other family member [place] in which their questions were an swered. CURRENT MEDICATIONS: Include: 1. Lasix 40 mg once a day as needed. 2. Lantus 25 units. 3. Pepcid 20 mg once a day. 4. Fentanyl patch. 5. Aspirin 81 mg once a day. 6. Zofran 4 mg every 4 hours. 7. Lipitor 20 mg once a day. 8. Propofol titration. When she was off propofol, the patient had tachycardia. 9. Demerol 12.5 mg as needed. 10. Norepinephrine as needed. PHYSICAL EXAMINATION: GENERAL: Today, the patient does not follow any verbal commands with slight movement for painful sti muli. CRANIAL: Cranial nerve II: Pupils are slightly reactive to light. Cranial nerves III, IV and : With extraocular muscle intact for doll's maneuver. Cranial nerves V and VII: Intact corneal reflex . Cranial nerves VIII through XII: Could not assess. MOTOR: Slight movement for painful stimuli. Sensation, coordination and gait could not assess. HEART: Regular rate and rhythm. LUNGS: Equal breath sounds. ABDOMEN: Soft, relaxed, nondistended, no tenderness. ASSESSMENT AND PLAN: 1. The patient is a 77-year-old status post acute encephalopathy. 2. Status post cardiopulmonary arrest. 3. Anoxic brain injury. Continue the patient on aspirin 81 mg for stroke prophylaxis. 4. History of hypertension. Keep the blood pressure at the level of 130/80. 5. History of diabetes. The patient is on sliding scale insulin and Accu-Chek. 6. Status post acute renal injury. 7. Respiratory failure in which the patient intubated. I counseled her granddaughter and other family member around her about her status. Dictated By: RISHI SILVA/OPAL Conf#: [id number] DID#: [id number] CC: ROBYN CAMPOS MD; DELICIA OQUENDO MD;*EndCC*
[2018-08-13] MEDS: NORepinephrine 8MG/250 ML (PMX 250 ML IV SCH (19:00)
--- NOTE | 2018-08-13 19:00 | NUR ---
END OF SHIFT SUMMARY PT HAS BEEN HEMODYNAMICALLY STABLE. PT HAS BEEN SR/ST. PT IS ON MECH VENT WITH FIO2 AT 100%. PT HAD AN EPISODE OF DESATURATION. MD STEVENSON WAS NOTIFIED AND VENT CHANGES WERE MADE. PT IS STILL ON LEVOPHED GTT, INSULIN GTT AT ALG 2, PROPOFOL AND FENTANYL GTT. ALL OF PT NEEDS CARED FOR. NO OTHER SIGNIFICANT EVENTS OCCURRED. FAMILY NOTIFIED RN THAT THEY WOULD LIKE TO PURSUE COMFORT MEASURES. ENDORSING CARE TO NIGHTSHIFT RN.
[2018-08-13] MEDS: ATORVASTATIN 20 MG TAB PO SCH (20:14)
[2018-08-13] MEDS: FENTAnyl (DRIP) 1000 mcg/100mL 100 ML IV SCH (20:16)
[2018-08-13] MEDS ORDERED: morphine (DRIP) 100 MG/100 ML 100 ML IV SCH (21:00)
[2018-08-13] MEDS ORDERED: ZYVOX 600 MG TAB PO SCH (21:00)
[2018-08-13] MEDS ORDERED: MEROPENEM 500MG/50 ML (PMX) 50 ML IVPB SCH (21:00)
--- NOTE | 2018-08-13 21:00 | NUR ---
Family members son and daughter at bedside and requested to withdraw care and terminally extubate patient. Telephone call placed to Dr. Walden and received orders to extubate patient and place on comfort measures. Morphine gtt to be started prior to extubation. Plan discussed with family and son and daughter wish to proceed with extubation. telphone call placed to [facility]
--- NOTE | 2018-08-13 21:48 | NUR ---
Patient started on morphine gtt with family at bedside
[2018-08-13] MEDS ORDERED: LORAZEPAM 2 MG INJ IV PRN (22:00)
--- NOTE | 2018-08-13 22:30 | NUR ---
RT Shreya here and patient extubated
--- NOTE | 2018-08-13 22:52 | NUR ---
Patient's carotid pulse absent over one minute, heart sound absent over one minute, and spontaneous respiratory movement and breath sounds absent over one minute. Patient's pupils fixed and dilated. Patient didn't respond to painful stimuli. Pronounced patient at 22:52 Primary MD notified. Family at the bedside.
--- NOTE | 2018-08-13 22:52 | NUR ---
Pt asystole pronounced by nursing supervisor water treatment plant Lyla , [facility] called patient is declined reference # [id number]
--- NOTE | 2018-08-14 06:34 | PN ---
DATE: 08/13/2018 SUBJECTIVE: The patient remains intubated and completely unresponsive. OBJECTIVE VITAL SIGNS: Blood pressure is 127/65, pulse is 107, temperature is 100.2. LUNGS: Clear to auscultation bilaterally. HEART: Regular rate and rhythm. ABDOMEN: Soft, normoactive bowel sounds. EXTREMITIES: Mild edema. ASSESSMENT: 1. A 77-year-old female status post cardiac arrest. 2. Anoxic brain injury. 3. Acute respiratory failure. 4. Acute kidney injury with progressive worsening of creatinine. 5. Diabetes mellitus. 6. Septic versus cardiogenic shock. 7. Escherichia coli urinary tract infection. 8. Poor prognosis. PLAN: 1. Continue supportive care. Palliative care. Consultation repeat labs including liver function te sts in a.m. 2. Plan of care and prognosis were discussed with daughter and granddaughter at bedside. 3. Results of the EEG are pending. Dictated By: JAYE ZHAO MD SK/NTS Conf#: [id number] DID#: [id number] CC: ROBYN CAMPOS MD; DELICIA OQUENDO MD;*End*
--- NOTE | 2018-08-14 06:34 | PN ---
DATE: 08/12/2018 SUBJECTIVE: The patient remains intubated and unresponsive. OBJECTIVE: VITAL SIGNS: Stable. She is afebrile. The patient remains on 6 to 8 mcg of Levophed. LUNGS: Clear to auscultation bilaterally. HEART: Regular rate and rhythm. ABDOMEN: Soft. Normoactive bowel sounds. EXTREMITIES: Mild edema. ASSESSMENT AND PLAN: 1. A 77-year-old female status post cardiac arrest. 2. Anoxic brain injury. 3. Acute non-ST elevation myocardial infarction. 4. Acute kidney injury. 5. Septic versus cardiogenic shock. 6. Urinary tract infection. 7. Type 2 diabetes mellitus. PLAN: 1. Continue supportive care. 2. Wean off Levophed drip. 3. Stat EEG. 4. Cardiology, pulmonary, ID, nephrology, and neurology followup is appreciated. 5. Plan of care was discussed with her granddaughter at the bedside. Dictated By: JAYE MENESES/NTS Conf#: [id number] DID#: [id number] CC: ROBYN CAMPOS MD;*End*
--- NOTE | 2018-08-14 13:46 | DES ---
DATE OF ADMISSION: 08/09/2018 DATE OF : 08/13/2018 DIAGNOSES PRIOR TO : 1. Acute cardiorespiratory arrest. 2. Anoxic brain injury. 3. Acute non-ST elevation myocardial infarction. 4. Acute respiratory failure. 5. Acute kidney injury. 6. Septic versus cardiogenic shock. 7. Urinary tract infection. 8. Type 2 diabetes mellitus. HOSPITAL COURSE: A 77-year-old female with multiple medical problems including hypertension, diabete s mellitus, and hyperlipidemia, presented to Emergency Room following abdominal pain associated with nausea and vomiting. Patient suffered a cardiac arrest. She had evidence of acute non-STEMI. She w as completely unresponsive. The patient also developed acute kidney injury. She was seen in consult ation by multiple specialists including pulmonary, cardiology, nephrology, infectious diseases, and n eurology. Family decided on terminal extubation. The patient was extubated and pronounced on 0 08/13/2018 at 2252 hours. Dictated By: JAYE ZHAO MD SK/NTS Conf#: [id number] DID#: [id number] CC: ROBYN CAMPOS MD;*EndCC*
--- NOTE | 2018-08-14 13:47 | RADRPT ---
Vent Rate: 108 bpm RR Interval: 0 msec ME Interval: 96 msec QRS Duration: 70 msec QT Interval: 344 msec QTC Interval: 460 msec P-R-T [place]: 48 - 10 - 161 degrees Sinus tachycardia with short ME ST amp; T wave abnormality, consider lateral ischemia Abnormal ECG Electronically Signed By: Mane Valenzuela [id number]
--- NOTE | 2018-08-14 13:50 | RADRPT ---
Vent Rate: 107 bpm RR Interval: 0 msec DE Interval: 126 msec QRS Duration: 74 msec QT Interval: 348 msec QTC Interval: 464 msec P-R-T [place]: 48 - -1 - 0 degrees Sinus tachycardia Low voltage QRS Cannot rule out Anterior infarct , age undetermined ST amp; T wave abnormality, consider inferolateral ischemia Abnormal ECG Electronically Signed By: Mane Valenzuela [id number]
--- NOTE | 2018-08-14 13:53 | RADRPT ---
Vent Rate: 111 bpm RR Interval: 0 msec HI Interval: 130 msec QRS Duration: 74 msec QT Interval: 416 msec QTC Interval: 565 msec P-R-T [place]: 53 - 4 - 168 degrees Sinus tachycardia with premature supraventricular complexes with occasional , and consecutive premature ventricular complexes and fusion complexes Anteroseptal infarct , age undetermined Baselie wander affecting accurate interpretation ST amp; T wave abnormality, consider lateral ischemia Abnormal ECG Electronically Signed By: Mane Valenzuela [id number]
--- NOTE | 2018-08-16 00:08 | NEURPT ---
DATE: 08/12/2018 REFERRING PHYSICIAN: Robyn Campos M.D. Thank you for asking me to see the patient with you. EEG was done using 10-[employer] System with photic stimulation. Bilateral occipital hemisphere views showed delta waves 2 to 3 Hz, low amplitude to medium size, asymmetric, bilateral. Photic stimulation done did not elicit a drive . No other epileptiform discharge or seizure activity is recorded. 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 No epileptifor m discharge or seizure activity is recorded. Dictated By: RISHI WOODS MD NA/NTS Conf#: [id number] DID#: [id number] CC: ROBYN CAMPOS MD;*End*
== END 2018-08-13 22:52 | disposition expired | DRG 870 ==
LOC: E/R 22:04 → ICU 08-09 01:10 → CANBEDREQ 08-09 02:24 → EDBEDREQ 08-09 03:33
PROVIDERS: ADMIT Internal Medicine; ATTEND Internal Medicine
PROC: 0YHH33Z Insertion of Infusion Device into Right Lower Leg, Percutaneous Approach (ICD-10-PCS; principal; 2018-08-09)
PROC: 5A1955Z Respiratory Ventilation, Greater than 96 Consecutive Hours (ICD-10-PCS; 2018-08-09)
PROC: 0BH18EZ Insertion of Endotracheal Airway into Trachea, Via Natural or Artificial Opening Endoscopic (ICD-10-PCS; 2018-08-09)
PROC: 3E0A3GC Introduction of Other Therapeutic Substance into Bone Marrow, Percutaneous Approach (ICD-10-PCS; 2018-08-09)
PROC: 5A12012 Performance of Cardiac Output, Single, Manual (ICD-10-PCS; 2018-08-09)
DX: A41.9 Sepsis, unspecified organism (principal); I21.4 Non-ST elevation (NSTEMI) myocardial infarction; R65.21 Severe sepsis with septic shock; J96.01 Acute respiratory failure with hypoxia; N17.0 Acute kidney failure with tubular necrosis; J69.0 Pneumonitis due to inhalation of food and vomit; E87.2 Acidosis; E87.0 Hyperosmolality and hypernatremia; G93.1 Anoxic brain damage, not elsewhere classified; N39.0 Urinary tract infection, site not specified; E78.5 Hyperlipidemia, unspecified; E11.22 Type 2 diabetes mellitus with diabetic chronic kidney disease; I12.9 Hypertensive chronic kidney disease with stage 1 through stage 4 chronic kidney disease, or unspecified chronic kidney disease; N18.9 Chronic kidney disease, unspecified; E11.65 Type 2 diabetes mellitus with hyperglycemia; I46.9 Cardiac arrest, cause unspecified; E66.9 Obesity, unspecified; Z68.32 Body mass index [BMI] 32.0-32.9, adult; I35.0 Nonrheumatic aortic (valve) stenosis; E87.6 Hypokalemia; I11.0 Hypertensive heart disease with heart failure; I50.9 Heart failure, unspecified; B96.20 Unspecified Escherichia coli [E. coli] as the cause of diseases classified elsewhere; Z66 Do not resuscitate
CPT/HCPCS: 31500; 36415; 36600; 71045; 76775; 80048; 80053; 80061; 80076; 80202; 80307; 81001; 82150; 82310; 82550; 82553; 82803; 82962; 83036; 83605; 83615; 83690; 83735; 83880; 84100; 84484; 85025; 85378; 85384; 85610; 85730; 87040; 87070; 87081; 87086; 87400; 89220; 92950; 93005; 93306; 94002; 94003; 94660; 94664; 94770; 95819; 96365; 96367; 96375; C9113; J0171; J0692; J1815; J1940; J2060; J2185; J2270; J2370; J2543; J2930; J3010; J3370; J3475; J3480; J7030; J7040; J7060; J7070; P9047